=== PATIENT | male | born 1940 | race Caucasian/White ===

== ENCOUNTER 2018-05-02 14:38 | Inpatient (IN) | payer MEDICARE ==
[2018-05-02] MEDS ORDERED: SODIUM CHLORIDE 0.9% 1,000 ML IV STA (14:43)
--- NOTE | 2018-05-02 14:45 | ED ---
Weakness HPI - General Chief complaint: Dizziness Stated complaint: Light headed, hyperglycemia Time Seen by Provider: 05/02/18 14:43 Source: patient, RN notes reviewed, old records reviewed Mode of arrival: wheelchair Limitations: no limitations - History of Present Illness Initial comments: This is a 70-year-old male to the ER for evaluation presented today for evaluation shortness breath weakness and chest pain. Patient has significant recent heart history with significant cardiac event stent placed. Patient states and stent placement in the abdomen severely weak shortness of breath and had increasing blood sugar. Patient states he has significant exertional dyspnea, no significant diaphoresis noted. Home activity level is significantly decreased MD Complaint: generalized weakness -: month(s) Location: generalized Severity: moderate Severity scale (1-10): 5 Quality: aching Consistency: constant Improves with: none, rest Worsens with: movement Context: depression Associated Symptoms: denies other symptoms - Related Data Home Medications Medication Instructions Recorded Confirmed Gabapentin [Neurontin] 100 mg PO DAILY 03/09/18 05/02/18 Levothyroxine Sodium [Synthroid] 150 mcg PO DAILY 03/09/18 05/02/18 Albuterol Inhaler [Ventolin Hfa 1 - 2 puff INHALATION RT-Q6H PRN 03/11/18 Inhaler] sitaGLIPtin [Januvia] 50 mg PO DAILY 03/11/18 05/02/18 Previous Rx's Medication Instructions Recorded Aspirin 81 mg PO DAILY #30 chew 03/14/18 Atorvastatin [Lipitor] 80 mg PO HS #30 tab 03/14/18 Digoxin [Lanoxin] 125 mcg PO DAILY #30 tab 03/14/18 Furosemide [Lasix] 20 mg PO BID #60 tab 03/14/18 Losartan [Cozaar] 25 mg PO HS #30 tab 03/14/18 Metoprolol Tartrate [Lopressor] 50 mg PO BID #60 tab 03/14/18 Ticagrelor [Brilinta] 90 mg PO BID #60 tab 03/14/18 Allergies Allergy/AdvReac Type Severity Reaction Status Date / Time cortisone Allergy Swelling Verified 05/02/18 14:51 Review of Systems ROS Statement: Those systems with pertinent positive or pertinent negative responses have been documented in the HPI. ROS Other: All systems not noted in ROS Statement are negative. Past Medical History Past Medical History: Atrial Fibrillation, Coronary Artery Disease (CAD), COPD, Diabetes Mellitus, Deep Vein Thrombosis (DVT), GERD/Reflux, GI Bleed, Hypertension, Thyroid Disorder Additional Past Medical History / Comment(s): upper and lower GI bld in 2015, diverticulosis History of Any Multi-Drug Resistant Organisms: None Reported Past Surgical History: Back Surgery, Cholecystectomy, Heart Catheterization With Stent, Orthopedic Surgery Additional Past Surgical History / Comment(s): rotator cuff repair & WRIST SURGERY Past Anesthesia/Blood Transfusion Reactions: No Reported Reaction Date of Last Stent Placement:: 03/09/18 Past Psychological History: Anxiety Smoking Status: Former smoker - Past Family History Father History Unknown: Yes Additional Family Medical History / Comment(s): FAMILY HISTORY UNKNOWN. General Exam Limitations: no limitations General appearance: alert, in no apparent distress Head exam: Present: atraumatic, normocephalic, normal inspection Eye exam: Present: normal appearance, PERRL, EOMI. Absent: scleral icterus, conjunctival injection, periorbital swelling ENT exam: Present: normal exam, mucous membranes moist Neck exam: Present: normal inspection. Absent: tenderness, meningismus, lymphadenopathy Respiratory exam: Present: normal lung sounds bilaterally. Absent: respiratory distress, wheezes, rales, rhonchi, stridor Cardiovascular Exam: Present: regular rate, normal rhythm, normal heart sounds. Absent: systolic murmur, diastolic murmur, rubs, gallop, clicks GI/Abdominal exam: Present: soft, normal bowel sounds. Absent: distended, tenderness, guarding, rebound, rigid Extremities exam: Present: normal inspection, full ROM, normal capillary refill. Absent: tenderness, pedal edema, joint swelling, calf tenderness Back exam: Present: normal inspection Neurological exam: Present: alert, oriented X3, CN II-XII intact Psychiatric exam: Present: normal affect, normal mood Skin exam: Present: warm, dry, intact, normal color. Absent: rash Course Vital Signs 05/02/18 05/02/18 05/02/18 14:40 15:30 16:00 Temperature 98.6 F Pulse Rate 85 84 81 Respiratory 18 15 18 Rate Blood Pressure 112/66 112/62 100/70 O2 Sat by Pulse 97 95 96 Oximetry - Reevaluation(s) Reevaluation #1: 05/02/18 18:09 Medical record is reviewed prior troponin is 128 EKG Findings - EKG Comments: EKG Findings:: EKG shows A. fib rate of 92, QRS 160, QTc 47 Medical Decision Making - Medical Decision Making 78 male to the ED co weakness and exertional dyspnea - Lab Data Result diagrams: 05/02/18 15:22 05/02/18 15:22 Lab Results 05/02/18 05/02/18 05/02/18 Range/Units 15:22 15:22 15:22 WBC 7.4 (3.8-10.6) k/uL RBC 4.54 (4.30-5.90) m/uL Hgb 14.5 (13.0-17.5) gm/dL Hct 43.2 (39.0-53.0) % MCV 95.1 (80.0-100.0) fL MCH 32.0 (25.0-35.0) pg MCHC 33.6 (31.0-37.0) g/dL RDW 14.2 (11.5-15.5) % Plt Count 172 (150-450) k/uL Neutrophils % 61 % Lymphocytes % 25 % Monocytes % 9 % Eosinophils % 3 % Basophils % 1 % Neutrophils # 4.5 (1.3-7.7) k/uL Lymphocytes # 1.8 (1.0-4.8) k/uL Monocytes # 0.6 (0-1.0) k/uL Eosinophils # 0.2 (0-0.7) k/uL Basophils # 0.1 (0-0.2) k/uL PT (9.0-12.0) sec INR (<1.2) APTT (22.0-30.0) sec Sodium 134 L (137-145) mmol/L Potassium 3.9 (3.5-5.1) mmol/L Chloride 96 L (98-107) mmol/L Carbon Dioxide 25 (22-30) mmol/L Anion Gap 13 mmol/L BUN 17 (9-20) mg/dL Creatinine 0.91 (0.66-1.25) mg/dL Est GFR (CKD-EPI)AfAm >90 (>60 ml/min/1.73 sqM) Est GFR (CKD-EPI)NonAf 81 (>60 ml/min/1.73 sqM) Glucose 425 H (74-99) mg/dL Plasma Lactic Acid Jason (0.7-2.0) mmol/L Calcium 9.2 (8.4-10.2) mg/dL Phosphorus 2.7 (2.5-4.5) mg/dL Magnesium 1.4 L (1.6-2.3) mg/dL Total Bilirubin 1.3 (0.2-1.3) mg/dL AST 31 (17-59) U/L ALT 31 (21-72) U/L Alkaline Phosphatase 61 (38-126) U/L Total Creatine Kinase 88 (55-170) U/L CK-MB (CK-2) 2.3 (0.0-2.4) ng/mL CK-MB (CK-2) Rel Index 2.6 Troponin I 0.040 H* (0.000-0.034) ng/mL Total Protein 6.4 (6.3-8.2) g/dL Albumin 3.5 (3.5-5.0) g/dL Urine Color Urine Appearance (Clear) Urine pH (5.0-8.0) Ur Specific [place] (1.001-1.035) Urine Protein (Negative) Urine Glucose (UA) (Negative) Urine Ketones (Negative) Urine Blood (Negative) Urine Nitrite (Negative) Urine Bilirubin (Negative) Urine Urobilinogen (<2.0) mg/dL Ur Leukocyte Esterase (Negative) Acetone, Qual Negative (Negative) 05/02/18 05/02/18 05/02/18 Range/Units 15:22 15:22 15:22 WBC (3.8-10.6) k/uL RBC (4.30-5.90) m/uL Hgb (13.0-17.5) gm/dL Hct (39.0-53.0) % MCV (80.0-100.0) fL MCH (25.0-35.0) pg MCHC (31.0-37.0) g/dL RDW (11.5-15.5) % Plt Count (150-450) k/uL Neutrophils % % Lymphocytes % % Monocytes % % Eosinophils % % Basophils % % Neutrophils # (1.3-7.7) k/uL Lymphocytes # (1.0-4.8) k/uL Monocytes # (0-1.0) k/uL Eosinophils # (0-0.7) k/uL Basophils # (0-0.2) k/uL PT 11.6 (9.0-12.0) sec INR 1.2 H (<1.2) APTT 22.1 (22.0-30.0) sec Sodium (137-145) mmol/L Potassium (3.5-5.1) mmol/L Chloride (98-107) mmol/L Carbon Dioxide (22-30) mmol/L Anion Gap mmol/L BUN (9-20) mg/dL Creatinine (0.66-1.25) mg/dL Est GFR (CKD-EPI)AfAm (>60 ml/min/1.73 sqM) Est GFR (CKD-EPI)NonAf (>60 ml/min/1.73 sqM) Glucose (74-99) mg/dL Plasma Lactic Acid Jason 3.5 H* (0.7-2.0) mmol/L Calcium (8.4-10.2) mg/dL Phosphorus (2.5-4.5) mg/dL Magnesium (1.6-2.3) mg/dL Total Bilirubin (0.2-1.3) mg/dL AST (17-59) U/L ALT (21-72) U/L Alkaline Phosphatase (38-126) U/L Total Creatine Kinase (55-170) U/L CK-MB (CK-2) (0.0-2.4) ng/mL CK-MB (CK-2) Rel Index Troponin I (0.000-0.034) ng/mL Total Protein (6.3-8.2) g/dL Albumin (3.5-5.0) g/dL Urine Color Yellow Urine Appearance Clear (Clear) Urine pH 6.0 (5.0-8.0) Ur Specific [place] 1.009 (1.001-1.035) Urine Protein Negative (Negative) Urine Glucose (UA) 4+ H (Negative) Urine Ketones Negative (Negative) Urine Blood Negative (Negative) Urine Nitrite Negative (Negative) Urine Bilirubin Negative (Negative) Urine Urobilinogen <2.0 (<2.0) mg/dL Ur Leukocyte Esterase Negative (Negative) Acetone, Qual (Negative) - Radiology Data Radiology results: report reviewed (CXR is negative for acute disease), image reviewed Critical Care Time Critical Care Time: Yes Total Critical Care Time: 31 Disposition Clinical Impression: CHF (congestive heart failure), Acute non-ST elevation myocardial infarction ( NSTEMI) Disposition: ADMITTED IP TO THIS HOSP Condition: Fair Is patient prescribed a controlled substance at d/c from ED?: No Referrals: Devonte Schaefer MD [Primary Care Provider] - 1-2 days
[2018-05-02 16:46] LABS: Basophils # (A) 0.1 k/uL (0-0.2); Basophils % (A) 1 %; Eosinophils # (A) 0.2 k/uL (0-0.7); Eosinophils % (A) 3 %; HCT 43.2 % (39.0-53.0); HGB 14.5 gm/dL (13.0-17.5); Lymphocytes # (A) 1.8 k/uL (1.0-4.8); Lymphocytes % (A) 25 %; MCHC 33.6 g/dL (31.0-37.0); MCV 95.1 fL (80.0-100.0); Mean Platelet Volume 7.2; Monocytes # (A) 0.6 k/uL (0-1.0); Monocytes % (A) 9 %; Neutrophils # (A) 4.5 k/uL (1.3-7.7); Neutrophils % (A) 61 %; Platelet Count 172 k/uL (150-450); RBC 4.54 m/uL (4.30-5.90); RDW 14.2 % (11.5-15.5); WBC 7.4 k/uL (3.8-10.6)
[2018-05-02 16:57] LABS: ALT 31 U/L (21-72); AST 31 U/L (17-59); Albumin 3.5 g/dL (3.5-5.0); Alkaline Phosphatase 61 U/L (38-126); Anion Gap 13 mmol/L; Blood Urea Nitrogen 17 mg/dL (9-20); Calcium 9.2 mg/dL (8.4-10.2); Carbon Dioxide 25 mmol/L (22-30); Chloride 96 mmol/L (98-107); Glucose 425 mg/dL (74-99); Magnesium 1.4 mg/dL (1.6-2.3); Phosphorus 2.7 mg/dL (2.5-4.5); Potassium 3.9 mmol/L (3.5-5.1); Sodium 134 mmol/L (137-145); Total Bilirubin 1.3 mg/dL (0.2-1.3); Total Protein 6.4 g/dL (6.3-8.2)
[2018-05-02 16:58] LABS: Appearance,Urine Clear (Clear); Bilirubin,Urine Negative (Negative); Blood,Urine Negative (Negative); Color,Urine Yellow; Glucose,Urine (UA) 4+ (Negative); Ketones,Urine Negative (Negative); Leukocyte Esterase,Urine Negative (Negative); Nitrite,Urine Negative (Negative); Protein,Urine Negative (Negative); Specific Gravity,Urine 1.009 (1.001-1.035); Urobilinogen,Urine <2.0 mg/dL (<2.0)
[2018-05-02 17:02] LABS: INR 1.2 (<1.2); Partial Thromboplastin Time 22.1 sec (22.0-30.0); Prothrombin Time 11.6 sec (9.0-12.0)
[2018-05-02 17:20] LABS: Creatine Kinase MB 2.3 ng/mL (0.0-2.4)
[2018-05-02 17:25] LABS: Troponin I 0.04 ng/mL (0.000-0.034)
[2018-05-02] MEDS ORDERED: NITROGLYCERIN SL TABS 0.4 MG TAB SUBLINGUAL PRN (18:05)
[2018-05-02 20:49] LABS: Glucose,Whole Blood 357 mg/dL (75-99)
[2018-05-02] MEDS ORDERED: METOPROLOL TARTRATE 25 MG TAB PO SCH (21:00)
[2018-05-02 21:36] LABS: Creatine Kinase MB 2.1 ng/mL (0.0-2.4)
[2018-05-02 21:52] LABS: Troponin I 0.042 ng/mL (0.000-0.034)
[2018-05-02] MEDS ORDERED: ALBUTEROL NEBULIZED 2.5 MG/3 ML INHALATION PRN (22:03)
[2018-05-02] MEDS ORDERED: SODIUM CHLORIDE 0.9% 500 ML 500 ML IV ONE (22:12)
[2018-05-02] MEDS ORDERED: INSULIN ASPART 100 UNIT/ML 1 ML 10 ML VIAL SQ ONE (22:13)
[2018-05-02] MEDS ORDERED: TICAGRELOR 90 MG TAB PO SCH (22:15)
[2018-05-02] MEDS: ATORVASTATIN 80 MG TAB PO SCH (22:29)
[2018-05-02] MEDS: LOSARTAN 25 MG TAB PO SCH (22:29)
[2018-05-02] MEDS: METOPROLOL TARTRATE 50 MG TAB PO SCH (22:29)
[2018-05-02] MEDS: FUROSEMIDE 20 MG TAB PO SCH (22:29)
[2018-05-02] MEDS: DIGOXIN 125 MCG TAB PO SCH (22:33)
[2018-05-02] MEDS: SODIUM CHLORIDE 0.9% 1,000 ML IV SCH (23:06)
[2018-05-02] MEDS: AZITHROMYCIN 500 MG in SODIUM CHLORIDE 0.9% 250 ML IVPB SCH (23:41)
--- NOTE | 2018-05-03 00:25 | XR ---
EXAM: XR Chest, 1 View CLINICAL HISTORY: ITS.REASON XR Reason: cough, sob TECHNIQUE: Frontal view of the chest. COMPARISON: No relevant prior studies available. FINDINGS: Lungs: Unremarkable. No consolidation. Pleural space: Unremarkable. No pneumothorax. Heart: Unremarkable. No cardiomegaly. Mediastinum: Unremarkable. Bones/joints: No definite fracture. IMPRESSION: No acute findings.
[2018-05-03 03:01] LABS: Basophils # (A) 0.1 k/uL (0-0.2); Basophils % (A) 1 %; Eosinophils # (A) 0.3 k/uL (0-0.7); Eosinophils % (A) 4 %; HCT 39.5 % (39.0-53.0); HGB 13.6 gm/dL (13.0-17.5); Lymphocytes # (A) 2.1 k/uL (1.0-4.8); Lymphocytes % (A) 27 %; MCH 32.4 pg (25.0-35.0); MCHC 34.5 g/dL (31.0-37.0); Mean Platelet Volume 7.2; Monocytes # (A) 0.7 k/uL (0-1.0); Monocytes % (A) 9 %; Neutrophils # (A) 4.7 k/uL (1.3-7.7); Neutrophils % (A) 58 %; Platelet Count 165 k/uL (150-450); RDW 14.2 % (11.5-15.5); WBC 8.1 k/uL (3.8-10.6)
[2018-05-03 03:05] LABS: Anion Gap 7 mmol/L; Blood Urea Nitrogen 15 mg/dL (9-20); Calcium 8.7 mg/dL (8.4-10.2); Carbon Dioxide 30 mmol/L (22-30); Chloride 102 mmol/L (98-107); Cholesterol 100 mg/dL (<200); Glucose 190 mg/dL (74-99); HDL Cholesterol 32 mg/dL (40-60); LDL Cholesterol,Calculated 41 mg/dL (0-99); Potassium 3.4 mmol/L (3.5-5.1); Sodium 139 mmol/L (137-145); Triglycerides 137 mg/dL (<150)
[2018-05-03 03:31] LABS: Creatine Kinase MB 1.9 ng/mL (0.0-2.4)
[2018-05-03 03:39] LABS: Troponin I 0.05 ng/mL (0.000-0.034)
[2018-05-03 06:05] LABS: Glucose,Whole Blood 199 mg/dL (75-99)
[2018-05-03] MEDS: LEVOTHYROXINE 75 MCG TAB PO SCH (06:25)
[2018-05-03] MEDS: INSULIN ASPART 100 UNIT/ML 1 ML 10 ML VIAL SQ SCH ×4 (06:25→21:47)
--- NOTE | 2018-05-03 08:25 | P.CRDCN ---
History of Present Illness Consult date: 05/03/18 Requesting physician: Devonte Schaefer Consult reason: shortness of breath Chief complaint: Exertional shortness of breath and weakness History of present illness: This is a 78-year-old gentleman who follows regularly with Dr. Francisco in the office. He has a known history of hypertension, diabetes, hyperlipidemia , chronic persistent atrial fibrillation, coronary artery disease, most recently the patient was in the hospital in February at which time he incurred a non-Q-wave myocardial infarction, he underwent angioplasty and stenting of the ostial and proximal left main intra-aortic balloon pump was placed at that time. He also had an echocardiogram with Doppler study performed on that visit which revealed an ejection fraction of 40-45%. Mild to moderate MR, mild-to- moderate TR, moderate to severe pulmonary hypertension. He presents to the hospital on this occasion mainly with symptoms of exertional shortness of breath and weakness. Apparently the patient was having a general physical, he noted in the morning at home his blood sugars to be in the range of 200. While at his physician's appointment his blood sugars were noted to be in the 400 range. Patient states that he was speaking to his doctor explaining that he's been very short of breath with minimal activities, intermittently he gets sharp chest pains, but he's been extremely weak unable to walk even short distances. Patient also notes at times that his heart is fluttering and racing fast. He also has swelling in his bilateral lower extremities, left leg greater than the right, he does state he said a history of a blood clot in that leg previously and it is always somewhat larger than the other. There is significant tenderness in the left lower extremity today. EKG on arrival here showed atrial fibrillation with a heart rate in the 90s, no acute changes noted. Chest x-ray did not reveal any acute findings. Blood pressure 120/70 with a heart rate in the 80s, 92% on room air. Temperature 97.8. White blood cell count 8.1, hemoglobin 13.6, platelet count 165. Sodium 139, potassium 3.4, BUN 15, creatinine 0.8. Blood glucose on arrival 425, 190 this morning. Plasma lactic acid 5.2 on admission 2.2 this morning. Magnesium 1.4. Troponins 0.04, 0.042, 0.050. I did review the office note, the patient had seen Dr. Pat on April 26 at which time he was instructed to stop his Brilinta, he was initiated on Plavix and Eliquis. The patient however was instructed to finish his Brilinta before making this change, and he had not yet started the Eliquis. At the time of my examination this morning, patient does complain of feeling extremely weak, denies any shortness of breath at present and no chest discomfort. Past Medical History Past Medical History: Atrial Fibrillation, Coronary Artery Disease (CAD), Chest Pain / Angina, COPD, Diabetes Mellitus, Deep Vein Thrombosis (DVT), GERD/Reflux , GI Bleed, Hypertension, Thyroid Disorder Additional Past Medical History / Comment(s): upper and lower GI bld in 2015, diverticulosis, upper dental bridge History of Any Multi-Drug Resistant Organisms: None Reported Past Surgical History: Back Surgery, Cholecystectomy, Heart Catheterization With Stent, Orthopedic Surgery Additional Past Surgical History / Comment(s): rotator cuff repair & WRIST SURGERY Past Anesthesia/Blood Transfusion Reactions: No Reported Reaction Date of Last Stent Placement:: 03/09/18 Smoking Status: Former smoker - Past Family History Father History Unknown: Yes Additional Family Medical History / Comment(s): FAMILY HISTORY UNKNOWN.pt was placed in foster care at [address] living in 11 different families. Medications and Allergies Home Medications Medication Instructions Recorded Confirmed Type Gabapentin [Neurontin] 100 mg PO DAILY 03/09/18 05/02/18 History Levothyroxine Sodium [Synthroid] 150 mcg PO DAILY 03/09/18 05/02/18 History Albuterol Inhaler [Ventolin Hfa 1 - 2 puff INHALATION RT-Q6H PRN 03/11/18 History Inhaler] sitaGLIPtin [Januvia] 100 mg PO DAILY 03/11/18 05/02/18 History Aspirin 81 mg PO DAILY #30 chew 03/14/18 05/02/18 Rx Atorvastatin [Lipitor] 80 mg PO HS #30 tab 03/14/18 05/02/18 Rx Digoxin [Lanoxin] 125 mcg PO DAILY #30 tab 03/14/18 05/02/18 Rx Furosemide [Lasix] 20 mg PO BID #60 tab 03/14/18 05/02/18 Rx Losartan [Cozaar] 25 mg PO HS #30 tab 03/14/18 05/02/18 Rx Metoprolol Tartrate [Lopressor] 50 mg PO BID #60 tab 03/14/18 05/02/18 Rx Ticagrelor [Brilinta] 90 mg PO BID #60 tab 03/14/18 05/02/18 Rx Allergies Allergy/AdvReac Type Severity Reaction Status Date / Time cortisone Allergy Swelling Verified 05/02/18 14:51 Physical Exam Vitals: Vital Signs Temp Pulse Pulse Resp BP BP Pulse Ox 05/03/18 04:06 97.8 F 89 15 120/71 92 L 05/02/18 23:34 97.5 F L 88 16 126/81 96 05/02/18 20:52 97.9 F 94 16 133/77 97 05/02/18 19:00 94 14 110/81 91 L 05/02/18 16:00 81 18 100/70 96 05/02/18 15:30 84 15 112/62 95 05/02/18 14:40 98.6 F 85 18 112/66 97 Intake and Output 05/02/18 05/03/18 05/03/18 22:59 06:59 14:59 Intake Total 550 240 Output Total 525 Balance 25 240 Intake: Intake, IV Titration 550 Amount Sodium Chloride 0.9% 500 500 ml 500 ml @ 999 mls/hr IV .Q31M ONE Rx#:[id number] cefTRIAXone 1,000 mg In 50 Sodium Chloride 0.9% 50 ml @ 100 mls/hr IVPB Q24H [facility] Rx#:[id number] Oral 240 Output: Urine 525 Other: # Voids 2 Weight 89.9 kg PHYSICAL EXAMINATION: GENERAL: 78-year-old gentleman in no acute distress at the time of my examination HEENT: Head is atraumatic, normocephalic. Pupils equal, round. Sclera anicteric. Conjunctiva are clear. Mucous membranes of the mouth are moist. Neck is supple. There is no elevated jugular venous pressure. No carotid bruit is heard. HEART EXAMINATION: Heart S1 and S2 irregularly irregular a systolic murmur is heard. CHEST EXAMINATION: Lungs are clear to auscultation and precussion. No chest wall tenderness is noted on palpation or with deep breathing. ABDOMEN: Soft, nontender. Bowel sounds are heard. No organomegaly noted. EXTREMITIES: 2+ peripheral pulses with 2+ evidence of peripheral edema in the left lower extremity, 1+ in the right. . NEUROLOGIC patient is awake, alert and oriented 3 . Results 05/03/18 02:43 05/03/18 02:43 Cardiac Enzymes 05/02/18 05/02/18 05/02/18 Range/Units 15:22 15:22 20:32 AST 31 (17-59) U/L CK-MB (CK-2) 2.3 2.1 (0.0-2.4) ng/mL Troponin I 0.040 H* 0.042 H* (0.000-0.034) ng/mL 05/03/18 Range/Units 02:43 AST (17-59) U/L CK-MB (CK-2) 1.9 (0.0-2.4) ng/mL Troponin I 0.050 H* (0.000-0.034) ng/mL Coagulation 05/02/18 Range/Units 15:22 PT 11.6 (9.0-12.0) sec APTT 22.1 (22.0-30.0) sec Lipids 05/03/18 Range/Units 02:43 Triglycerides 137 (<150) mg/dL Cholesterol 100 (<200) mg/dL HDL Cholesterol 32 L (40-60) mg/dL CBC 05/02/18 05/03/18 Range/Units 15:22 02:43 WBC 7.4 8.1 (3.8-10.6) k/uL RBC 4.54 4.20 L (4.30-5.90) m/uL Hgb 14.5 13.6 (13.0-17.5) gm/dL Hct 43.2 39.5 (39.0-53.0) % Plt Count 172 165 (150-450) k/uL Comprehensive Metabolic Panel 05/02/18 05/03/18 Range/Units 15:22 02:43 Sodium 134 L 139 (137-145) mmol/L Potassium 3.9 3.4 L (3.5-5.1) mmol/L Chloride 96 L 102 (98-107) mmol/L Carbon Dioxide 25 30 (22-30) mmol/L BUN 17 15 (9-20) mg/dL Creatinine 0.91 0.88 (0.66-1.25) mg/dL Glucose 425 H 190 H (74-99) mg/dL Calcium 9.2 8.7 (8.4-10.2) mg/dL AST 31 (17-59) U/L ALT 31 (21-72) U/L Alkaline Phosphatase 61 (38-126) U/L Total Protein 6.4 (6.3-8.2) g/dL Albumin 3.5 (3.5-5.0) g/dL Current Medications Generic Name Dose Route Start Last Admin Trade Name Freq PRN Reason Stop Dose Admin Albuterol Sulfate 2.5 mg 05/02/18 22:03 Ventolin Nebulized INHALATION RT-Q6H PRN Shortness Of Breath Aspirin 81 mg 05/03/18 09:00 Aspirin PO DAILY [facility] Atorvastatin Calcium 80 mg 05/02/18 22:15 05/02/18 22:29 Lipitor PO 80 mg HS [facility] Administration Digoxin 125 mcg 05/02/18 22:03 05/02/18 22:33 Lanoxin PO Not Given DAILY [facility] Enoxaparin Sodium 40 mg 05/03/18 09:00 Lovenox SQ DAILY [facility] Furosemide 20 mg 05/02/18 22:03 05/02/18 22:29 Lasix PO 20 mg BID [facility] Administration Gabapentin 100 mg 05/03/18 09:00 Neurontin PO DAILY [facility] Sodium Chloride 1,000 mls @ 100 mls/hr 05/02/18 18:15 05/02/18 23:06 Saline 0.9% IV 100 mls/hr .Q10H [facility] Administration Ceftriaxone Sodium 1,000 mg/ 50 mls @ 100 mls/hr 05/02/18 23:00 05/02/18 23: 06 Sodium Chloride IVPB 100 mls/hr Q24H [facility] Administration Azithromycin 500 mg/ Sodium 250 mls @ 250 mls/hr 05/02/18 23:30 05/02/18 23: 41 Chloride IVPB 250 mls/hr Q24H [facility] Administration Insulin Aspart 0 unit 05/03/18 07:30 05/03/18 06:25 Novolog SQ 2 unit AC-TID [facility] Administration Protocol Levothyroxine Sodium 150 mcg 05/03/18 06:30 05/03/18 06:25 Synthroid PO 150 mcg DAILY@0630 [facility] Administration Linagliptin 5 mg 05/03/18 09:00 Tradjenta PO DAILY [facility]AZ Losartan Potassium 25 mg 05/02/18 22:15 05/02/18 22:29 Cozaar PO 25 mg HS [facility] Administration Metoprolol Tartrate 50 mg 05/02/18 22:15 05/02/18 22:29 Lopressor PO 50 mg BID [facility] Administration Nitroglycerin 0.4 mg 05/02/18 18:05 Nitrostat SUBLINGUAL Q5M PRN Chest Pain Ticagrelor 90 mg 05/02/18 22:15 05/02/18 22:29 Brilinta PO 90 mg BID [facility]AZ Administration Intake and Output 05/02/18 05/03/18 05/03/18 22:59 06:59 14:59 Intake Total 550 240 Output Total 525 Balance 25 240 Intake: Intake, IV Titration 550 Amount Sodium Chloride 0.9% 500 500 ml 500 ml @ 999 mls/hr IV .Q31M ONE Rx#:[id number] cefTRIAXone 1,000 mg In 50 Sodium Chloride 0.9% 50 ml @ 100 mls/hr IVPB Q24H [facility] Rx#:[id number] Oral 240 Output: Urine 525 Other: # Voids 2 Weight 89.9 kg 05/03/18 02:43 05/03/18 02:43 EKG Interpretations (text) EKG shows atrial fibrillation with a moderately rapid ventricular Assessment and Plan Plan: Assessment and plan #1 symptoms of exertional shortness of breath with progressive weakness. Troponins 0.040, 0.042, 0.050. #2 symptoms of palpitations and heart fluttering, EKG on admission showed atrial fibrillation with moderately rapid ventricular response. #3 known history of coronary artery disease with recent myocardial infarction in February of this year at which time patient underwent angioplasty and stenting of ostial and proximal left main. Patient had been on Brilinta, this was recently changed in the office to Plavix and the aspirin had been discontinued. Patient however had not yet started the Plavix and was still taking Brilinta #4 diabetes, uncontrolled, blood sugars greater than 400 on admission #5 hypertension #6 hyperlipidemia #7 history of prior DVT #8 chronic persistent atrial fibrillation, patient just recently started back on Eliquis 2-1/2 mg one tablet by mouth twice a day on April 26. Patient had not yet started taking Eliquis. #9 elevated plasma lactic acid level #10 hypokalemia Plan We will discontinue the Brilinta aspirin and Lovenox and put the patient on Eliquis and Plavix. Echocardiogram with Doppler study is being performed. Venous duplex study of the left lower extremity has also been requested. We'll request a d-dimer rule out possibility of pulmonary embolism. Replace potassium. Further recommendations to follow DNP note has been reviewed, I agree with a documented findings and plan of care. Patient was seen and examined.
[2018-05-03] MEDS: GABAPENTIN 100 MG CAP PO SCH (08:48)
[2018-05-03] MEDS: DIGOXIN 125 MCG TAB PO SCH (08:49)
[2018-05-03] MEDS: CLOPIDOGREL 75 MG TAB PO SCH (08:49)
[2018-05-03] MEDS: METOPROLOL TARTRATE 50 MG TAB PO SCH ×2 (08:49→20:27)
[2018-05-03] MEDS: FUROSEMIDE 20 MG TAB PO SCH ×2 (08:49→20:27)
[2018-05-03] MEDS: LINAGLIPTIN 5 MG TABLET PO SCH (08:51)
[2018-05-03] MEDS ORDERED: ENOXAPARIN 40 MG/0.4 ML SYRINGE SQ SCH (09:00)
[2018-05-03] MEDS ORDERED: APIXABAN 2.5 MG TABLET PO SCH (09:00)
[2018-05-03] MEDS ORDERED: ASPIRIN 81 MG PO SCH ×2 (09:00)
--- NOTE | 2018-05-03 09:21 | US ---
EXAMINATION TYPE: US venous doppler duplex LE LT DATE OF EXAM: 05/03/2018 8:44 AM COMPARISON: NONE CLINICAL HISTORY: edema. History of DVT left leg about 4 years ago per patient, currently taking bloo d thinners SIDE PERFORMED: Left TECHNIQUE: The lower extremity deep venous system is examined utilizing real time linear array sonog argelia with graded compression, doppler sonography and color-flow sonography. VESSELS IMAGED: External Iliac Vein (EIV) Common Femoral Vein Deep Femoral Vein Greater Saphenous Vein * Femoral Vein Popliteal Vein Small Saphenous Vein * Proximal Calf Veins (* superficial vessels) Left Leg: Positive for DVT from the mid femoral vein to the proximal calf veins IMPRESSION: DVT as noted above.
[2018-05-03 11:26] LABS: Glucose,Whole Blood 304 mg/dL (75-99)
--- NOTE | 2018-05-03 11:43 | CT ---
EXAMINATION TYPE: CT angio chest DATE OF EXAM: 05/03/2018 COMPARISON: None HISTORY: History of left leg DVT CT DLP: 293 mGycm CONTRAST: CT chest with contrast and 3D reconstruction with MIP imaging is performed with IV Contrast, patient injected with 100, wasted 16 mL of Isovue 370. Contrast-enhanced CT of the chest was performed through the course of the pulmonary arteries with john g and mediastinal window settings submitted. 3D reconstruction with MIP imaging was also performed. PULMONARY ARTERIES: There is filling defect within tertiary right lower lobe pulmonary arterial branc hes compatible with pulmonary embolism mild in degree. No additional filling defects seen. No evidenc e for saddle component. LUNGS: The lungs are clear and free of infiltrate. No evidence for atelectasis. No pulmonary nodule or mass is detected. No pleural effusion. MEDIASTINUM: Thoracic aorta is of normal caliber,however, evaluation is limited given timing of the contrast bolus. If there is concern for thoracic aortic pathology consider NARCISA. Correlate clinicall y . The heart is not enlarged. No evidence for mediastinal mass. No mediastinal lymph nodes greater than 1cm. HILAR STRUCTURES: No evidence for mass. No hilar lymph nodes greater than 1 cm. UPPER ABDOMEN: No significant abnormality is seen. IMPRESSION: 1. Findings compatible with right lower lobe pulmonary embolism mild in degree. See above. A [place] level critical message alert has been initiated for Devonte Schaefer MD via the [facility] Critical Results System on 05/03/2018 11:40 AM. This message alert has been sent to Devonte Schaefer MD via the preferences provided by the clinician for the receipt of Radiology Critical Findings. Messag e ID [id number].
[2018-05-03] MEDS: SODIUM CHLORIDE 0.9% 1,000 ML IV SCH ×3 (12:26→22:31)
--- NOTE | 2018-05-03 12:51 | ECHOF ---
Referral Reason:sob MEASUREMENTS -------- HEIGHT: 170.2 cm WEIGHT: 89.8 kg BP: 120/71 RVIDd: 2.5 cm (< 3.3) IVSd: 1.3 cm (0.6 - 1.1) LVIDd: 4.6 cm (3.9 - 5.3) LVPWd: 1.0 cm (0.6 - 1.1) IVSs: 1.8 cm LVIDs: 3.3 cm LVPWs: 1.4 cm LAESV Index (A-L): 32.31 ml/m Ao Diam: 2.7 cm (2.0 - 3.7) AV Cusp: 1.9 cm (1.5 - 2.6) LA Diam: 3.6 cm (2.7 - 3.8) MV EXCURSION: 13.536 mm (> 18.000) MV EF SLOPE: 103 mm/s (70 - 150) EPSS: 0.8 cm AR PHT: 314 ms RAP: 5.00 mmHg RVSP: 27.57 mmHg FINDINGS -------- Atrial fibrillation. This was a technically difficult study with suboptimal views. The left ventricular size is normal. There is mild concentric left ventricular hypertrophy. Overa ll left ventricular systolic function is mildly impaired with, an EF between 45 - 50 %. Basal poste rior LV wall motion is hypokinetic. Basal inferior LV wall motion is hypokinetic. Mid inferior LV wall motion is hypokinetic. The right ventricle is normal in size. LA is midly dilated 29-33ml/m2. The right atrial size is normal. Lumason used Aortic valve is trileaflet and is mildly thickened. Trace amount of aortic regurgitation. The mitral valve leaflets are mildly thickened. Mild mitral regurgitation is present. Mild tricuspid regurgitation present. There is no evidence of pulmonary hypertension. The right v entricular systolic pressure, as measured by Doppler, is 27.57mmHg. There is no pulmonic regurgitation present. The aortic root size is normal. There is no pericardial effusion. CONCLUSIONS -------- 1. Atrial fibrillation. 2. This was a technically difficult study with suboptimal views. 3. The left ventricular size is normal. 4. There is mild concentric left ventricular hypertrophy. 5. Overall left ventricular systolic function is mildly impaired with, an EF between 45 - 50 %. 6. Basal posterior LV wall motion is hypokinetic. 7. Basal inferior LV wall motion is hypokinetic. 8. Mid inferior LV wall motion is hypokinetic. 9. LA is midly dilated 29-33ml/m2. 10. Lumason used 11. Aortic valve is trileaflet and is mildly thickened. 12. Trace amount of aortic regurgitation. 13. The mitral valve leaflets are mildly thickened. 14. Mild mitral regurgitation is present. 15. Mild tricuspid regurgitation present. 16. There is no evidence of pulmonary hypertension. 17. There is no pulmonic regurgitation present. 18. The aortic root size is normal. 19. There is no pericardial effusion. BLOCK CLEANER: Irlanda Melissa RDCS
[2018-05-03] MEDS ORDERED: HEPARIN SODIUM,PORCINE 10,000 UNIT/ML 1 ML VIAL IV ONE (13:39)
[2018-05-03] MEDS ORDERED: HEPARIN SODIUM,PORCINE 5,000 UNIT/ML 1 ML VIAL IV PRN (13:39)
[2018-05-03] MEDS: HEPARIN SOD,PORK IN 0.45% NACL 25,000 UNIT in 0.45% NACL 1 500ML.BAG IV SCH (14:44)
[2018-05-03 15:06] LABS: Basophils % (A) 1 %; Eosinophils # (A) 0.3 k/uL (0-0.7); Eosinophils % (A) 5 %; HCT 38.6 % (39.0-53.0); HGB 13.3 gm/dL (13.0-17.5); INR 1.2 (<1.2); Lymphocytes % (A) 29 %; MCH 33.2 pg (25.0-35.0); MCHC 34.5 g/dL (31.0-37.0); MCV 96.1 fL (80.0-100.0); Mean Platelet Volume 7.2; Monocytes # (A) 0.5 k/uL (0-1.0); Monocytes % (A) 7 %; Neutrophils # (A) 3.8 k/uL (1.3-7.7); Neutrophils % (A) 57 %; Platelet Count 152 k/uL (150-450); Prothrombin Time 11.5 sec (9.0-12.0); RBC 4.01 m/uL (4.30-5.90); RDW 14.2 % (11.5-15.5); WBC 6.8 k/uL (3.8-10.6)
[2018-05-03 16:27] LABS: Hemoglobin A1C 9.6 % (4.0-6.0)
[2018-05-03 16:41] LABS: Glucose,Whole Blood >600 mg/dL (75-99)
[2018-05-03 16:41] LABS: Glucose,Whole Blood 285 mg/dL (75-99)
[2018-05-03] MEDS ORDERED: metFORMIN 500 MG TAB PO SCH (17:30)
--- NOTE | 2018-05-03 20:04 | P.HPIM ---
History of Present Illness H&P Date: 05/03/18 Chief Complaint: elevated blood sugars 78-year-old male with a past medical history significant for atrial fibrillation, COPD, diabetes mellitus, hypertension, and CAD who recently had a myocardial infarction with stent placement to the left main in February 2018, who originally presented to his primary care physicians office for a routine follow up visit. The patients blood sugars had been running in the 300-400s and complained of generalized fatigue. He was instructed to come to the hospital. He was evaluated in the emergency room. The patient also complained of increased swelling of his left lower extremity and tenderness. He denied shortness of breath. Although, he does report a non productive cough. Denies chest pain. Denies nausea or vomiting. The patient reports he has been compliant with his diabetic diet and has been taking his medications as prescribed. His blood sugars are normally well controlled. He was prescribed Aspirin and brilinta when he was discharged from the hospital after his OR. He saw Dr. Pat in the office recently and was told he could stop the brilinta and was switched to Plavix. Chest x-ray was completed and was negative for an acute process. Echocardiogram revealed ejection fraction between 45 and 50%, hypokinesis of LV wall, mild mitral regurgitation, and mild tricuspid regurgitation. Doppler of left lower extremity is positive for DVT from the mid femoral vein to the proximal calf veins CT angiogram revealed right lower lobe pulmonary emboli Laboratory data upon admission reveals white count 7.4. Hemoglobin 14.5. Platelet count 172. Sodium 134. Potassium 3.9. BUN 17. Creatinine 0.91. Glucose 425. Lactic acid 3.5. Magnesium 1.4. troponin 0.040, 0.042, 0.050 The patient was admitted to the hospital under the care of Dr. Schaefer. Consultations were placed to cardiology. REVIEW OF SYSTEMS: Those systems with pertinent positive or pertinent negative responses have been documented in the HPI PHYSICAL EXAM: GENERAL: This is a 78-year-old male in no apparent distress at the time of examination. Pleasant and cooperative. HEENT: Head is atraumatic, normocephalic. Pupils are equal, round, and reactive to light. Sclerae anicteric. Conjunctivae are clear. Mucus membranes of the mouth are moist. Neck is supple. RESPIRATORY: Clear to auscultation. No wheezes, rales, or rhonchi. No use of accessory muscles. Patient maintaining oxygen saturation greater than 92%. No chest wall tenderness is noted on palpation or with deep breathing. CARDIOVASCULAR: Irregular rhythm. S1 and S2 noted. No JVD noted. No S3 or S4 noted. GASTROINTESTINAL: No distention noted. Abdomen soft and round. Normal active bowel sounds auscultated x 4 quadrants. No pain or tenderness noted upon palpation. INTEGUMENTARY: No cyanosis. No jaundice. No rashes noted. No cellulitis noted. EXTREMITIES: 2+ peripheral pulses. 1+ left lower extremity edema. tenderness noted upon palpation of LLE. NEUROLOGIC: Cranial nerves II-XII intact. PSYCHIATRIC: Awake, alert, and oriented X 3. Appropriate affect. Intact judgement and insight. ASSESSMENT: Right lower lobe pulmonary emboli Acute DVT from the left mid femoral vein to the proximal calf veins Hyperglycemia Diabetes Mellitus, Type II, currently uncontrolled Lactic acidosis Coronary artery disease with recent myocardial infarction, s/p stent of ostial and proximal left main Hypertension Hyperlipidema Chronic atrial fibrillation COPD, no evidence of acute exacerbation History of prior DVT GERD Obesity: BMI 31.0 PLAN: Cardiology on consult. Appreciate recommendations and input Brilinta and aspirin discontinued per cardiology. Patient restarted on Eliquis Begin Meformin 500mg BID. If blood sugars remain elevated, will add Levemir at HS Continue Januvia Novolog sliding scale ACHS Consult coding educator Home meds as appropriate Monitor labs GI prophylaxis: Pepcid 20mg PO BID DVT prophylaxis: Eliquis/Heparin drip Monitor vital signs and address as appropriate Discharge planning: Patient to return home when stable Further recommendations pending patient's course Nurse practitioner note has been reviewed by physician. Signing provider agrees with the documented findings, assessment, and plan of care. Past Medical History Past Medical History: Atrial Fibrillation, Coronary Artery Disease (CAD), Chest Pain / Angina, COPD, Diabetes Mellitus, Deep Vein Thrombosis (DVT), GERD/Reflux , GI Bleed, Hypertension, Thyroid Disorder Additional Past Medical History / Comment(s): upper and lower GI bld in 2014, diverticulosis, upper dental bridge History of Any Multi-Drug Resistant Organisms: None Reported Past Surgical History: Back Surgery, Cholecystectomy, Heart Catheterization With Stent, Orthopedic Surgery Additional Past Surgical History / Comment(s): rotator cuff repair & WRIST SURGERY Past Anesthesia/Blood Transfusion Reactions: No Reported Reaction Date of Last Stent Placement:: 03/09/18 Smoking Status: Former smoker - Past Family History Father History Unknown: Yes Additional Family Medical History / Comment(s): FAMILY HISTORY UNKNOWN.pt was placed in foster care at [address] living in 11 different families. Medications and Allergies Home Medications Medication Instructions Recorded Confirmed Type Gabapentin [Neurontin] 100 mg PO DAILY 03/09/18 05/02/18 History Levothyroxine Sodium [Synthroid] 150 mcg PO DAILY 03/09/18 05/02/18 History Albuterol Inhaler [Ventolin Hfa 1 - 2 puff INHALATION RT-Q6H PRN 03/11/18 History Inhaler] sitaGLIPtin [Januvia] 100 mg PO DAILY 03/11/18 05/02/18 History Aspirin 81 mg PO DAILY #30 chew 03/14/18 05/02/18 Rx Atorvastatin [Lipitor] 80 mg PO HS #30 tab 03/14/18 05/02/18 Rx Digoxin [Lanoxin] 125 mcg PO DAILY #30 tab 03/14/18 05/02/18 Rx Furosemide [Lasix] 20 mg PO BID #60 tab 03/14/18 05/02/18 Rx Losartan [Cozaar] 25 mg PO HS #30 tab 03/14/18 05/02/18 Rx Metoprolol Tartrate [Lopressor] 50 mg PO BID #60 tab 03/14/18 05/02/18 Rx Ticagrelor [Brilinta] 90 mg PO BID #60 tab 03/14/18 05/02/18 Rx Allergies Allergy/AdvReac Type Severity Reaction Status Date / Time cortisone Allergy Swelling Verified 05/02/18 14:51 Physical Exam Vitals: Vital Signs Temp Pulse Pulse Resp BP BP Pulse Ox 05/03/18 11:59 96.0 F L 85 18 120/75 97 05/03/18 08:00 97.4 F L 94 18 119/77 96 05/03/18 04:06 97.8 F 89 15 120/71 92 L 05/02/18 23:34 97.5 F L 88 16 126/81 96 05/02/18 20:52 97.9 F 94 16 133/77 97 05/02/18 19:00 94 14 110/81 91 L 05/02/18 16:00 81 18 100/70 96 05/02/18 15:30 84 15 112/62 95 05/02/18 14:40 98.6 F 85 18 112/66 97 Intake and Output 05/02/18 05/03/18 05/03/18 22:59 06:59 14:59 Intake Total 550 462 Output Total 525 700 Balance 25 -238 Intake: Intake, IV Titration 550 Amount Sodium Chloride 0.9% 500 500 ml 500 ml @ 999 mls/hr IV .Q31M ONE Rx#:[id number] cefTRIAXone 1,000 mg In 50 Sodium Chloride 0.9% 50 ml @ 100 mls/hr IVPB Q24H [facility] Rx#:[id number] Oral 462 Output: Urine 525 700 Other: # Voids 2 Weight 89.9 kg Results CBC & Chem 7: 05/03/18 02:43 05/03/18 02:43 Labs: Abnormal Lab Results - Last 24 Hours (Table) 05/02/18 05/02/18 05/02/18 Range/Units 15:22 15:22 15:22 RBC (4.30-5.90) m/uL INR (<1.2) D-Dimer (<0.60) mg/L FEU Sodium 134 L (137-145) mmol/L Potassium (3.5-5.1) mmol/L Chloride 96 L (98-107) mmol/L Glucose 425 H (74-99) mg/dL POC Glucose (mg/dL) (75-99) mg/dL Plasma Lactic Acid Jason 3.5 H* (0.7-2.0) mmol/L Magnesium 1.4 L (1.6-2.3) mg/dL Troponin I 0.040 H* (0.000-0.034) ng/mL HDL Cholesterol (40-60) mg/dL Urine Glucose (UA) (Negative) 05/02/18 05/02/18 05/02/18 Range/Units 15:22 15:22 20:32 RBC (4.30-5.90) m/uL INR 1.2 H (<1.2) D-Dimer (<0.60) mg/L FEU Sodium (137-145) mmol/L Potassium (3.5-5.1) mmol/L Chloride (98-107) mmol/L Glucose (74-99) mg/dL POC Glucose (mg/dL) (75-99) mg/dL Plasma Lactic Acid Jason (0.7-2.0) mmol/L Magnesium (1.6-2.3) mg/dL Troponin I 0.042 H* (0.000-0.034) ng/mL HDL Cholesterol (40-60) mg/dL Urine Glucose (UA) 4+ H (Negative) 05/02/18 05/02/18 05/03/18 Range/Units 20:32 20:47 00:54 RBC (4.30-5.90) m/uL INR (<1.2) D-Dimer (<0.60) mg/L FEU Sodium (137-145) mmol/L Potassium (3.5-5.1) mmol/L Chloride (98-107) mmol/L Glucose (74-99) mg/dL POC Glucose (mg/dL) 357 H (75-99) mg/dL Plasma Lactic Acid Jason 5.2 H* 2.2 H* (0.7-2.0) mmol/L Magnesium (1.6-2.3) mg/dL Troponin I (0.000-0.034) ng/mL HDL Cholesterol (40-60) mg/dL Urine Glucose (UA) (Negative) 05/03/18 05/03/18 05/03/18 Range/Units 02:43 02:43 02:43 RBC 4.20 L (4.30-5.90) m/uL INR (<1.2) D-Dimer (<0.60) mg/L FEU Sodium (137-145) mmol/L Potassium 3.4 L (3.5-5.1) mmol/L Chloride (98-107) mmol/L Glucose 190 H (74-99) mg/dL POC Glucose (mg/dL) (75-99) mg/dL Plasma Lactic Acid Jason (0.7-2.0) mmol/L Magnesium (1.6-2.3) mg/dL Troponin I 0.050 H* (0.000-0.034) ng/mL HDL Cholesterol 32 L (40-60) mg/dL Urine Glucose (UA) (Negative) 05/03/18 05/03/18 05/03/18 Range/Units 06:04 08:20 11:21 RBC (4.30-5.90) m/uL INR (<1.2) D-Dimer 11.33 H (<0.60) mg/L FEU Sodium (137-145) mmol/L Potassium (3.5-5.1) mmol/L Chloride (98-107) mmol/L Glucose (74-99) mg/dL POC Glucose (mg/dL) 199 H 304 H (75-99) mg/dL Plasma Lactic Acid Jason (0.7-2.0) mmol/L Magnesium (1.6-2.3) mg/dL Troponin I (0.000-0.034) ng/mL HDL Cholesterol (40-60) mg/dL Urine Glucose (UA) (Negative) Microbiology - Last 24 Hours (Table) 05/02/18 15:22 Urine Culture - Preliminary Urine,Voided Thrombosis Risk Factor Assmnt - Choose All That Apply Any of the Below Risk Factors Present?: Yes Each Factor Represents 1 point: Obesity (BMI >25), Swollen legs (current) Each Risk Factor Represents 3 Points: Age 75 years or older Other congenital or acquired thrombophilia - If yes, enter type in comment: No Thrombosis Risk Factor Assessment Total Risk Factor Score: 5 Thrombosis Risk Factor Assessment Level: High Risk
[2018-05-03] MEDS: FAMOTIDINE 20 MG TAB PO SCH (20:27)
[2018-05-03] MEDS: ATORVASTATIN 80 MG TAB PO SCH (20:27)
[2018-05-03] MEDS: LOSARTAN 25 MG TAB PO SCH (20:27)
[2018-05-03 20:40] LABS: Glucose,Whole Blood 262 mg/dL (75-99)
[2018-05-03] MEDS: AZITHROMYCIN 500 MG in SODIUM CHLORIDE 0.9% 250 ML IVPB SCH (23:10)
[2018-05-04 06:33] LABS: Glucose,Whole Blood 229 mg/dL (75-99)
[2018-05-04 06:44] LABS: Basophils # (A) 0.1 k/uL (0-0.2); Basophils % (A) 1 %; Eosinophils # (A) 0.6 k/uL (0-0.7); Eosinophils % (A) 6 %; HCT 39.7 % (39.0-53.0); HGB 13.2 gm/dL (13.0-17.5); Lymphocytes # (A) 4.2 k/uL (1.0-4.8); Lymphocytes % (A) 43 %; MCH 31.8 pg (25.0-35.0); MCHC 33.2 g/dL (31.0-37.0); MCV 95.9 fL (80.0-100.0); Mean Platelet Volume 7.3; Monocytes # (A) 0.6 k/uL (0-1.0); Monocytes % (A) 7 %; Neutrophils # (A) 4.1 k/uL (1.3-7.7); Neutrophils % (A) 42 %; Platelet Count 159 k/uL (150-450); RBC 4.14 m/uL (4.30-5.90); RDW 14.3 % (11.5-15.5); WBC 9.7 k/uL (3.8-10.6)
[2018-05-04] MEDS: LEVOTHYROXINE 75 MCG TAB PO SCH (07:01)
[2018-05-04] MEDS: INSULIN ASPART 100 UNIT/ML 1 ML 10 ML VIAL SQ SCH ×5 (07:03→20:19)
[2018-05-04] MEDS: GABAPENTIN 100 MG CAP PO SCH (08:09)
[2018-05-04] MEDS: LINAGLIPTIN 5 MG TABLET PO SCH (08:09)
[2018-05-04] MEDS: METOPROLOL TARTRATE 50 MG TAB PO SCH ×2 (08:09→20:18)
[2018-05-04] MEDS: CLOPIDOGREL 75 MG TAB PO SCH (08:09)
[2018-05-04] MEDS: FAMOTIDINE 20 MG TAB PO SCH ×2 (08:09→20:19)
[2018-05-04] MEDS: DIGOXIN 125 MCG TAB PO SCH (08:09)
[2018-05-04] MEDS: FUROSEMIDE 20 MG TAB PO SCH ×2 (08:10→20:18)
[2018-05-04 10:37] VITALS: BMI 32.0
[2018-05-04 10:54] LABS: Anion Gap 9 mmol/L; Blood Urea Nitrogen 13 mg/dL (9-20); Calcium 8.9 mg/dL (8.4-10.2); Carbon Dioxide 24 mmol/L (22-30); Chloride 106 mmol/L (98-107); Glucose 207 mg/dL (74-99); Potassium 3.6 mmol/L (3.5-5.1); Sodium 139 mmol/L (137-145)
[2018-05-04 11:43] LABS: Glucose,Whole Blood 347 mg/dL (75-99)
[2018-05-04] MEDS: HEPARIN SOD,PORK IN 0.45% NACL 25,000 UNIT in 0.45% NACL 1 500ML.BAG IV SCH ×2 (12:05→20:20)
[2018-05-04] MEDS: SODIUM CHLORIDE 0.9% 1,000 ML IV SCH ×2 (12:14→20:20)
--- NOTE | 2018-05-04 13:50 | P.PN ---
Subjective Progress Note Date: 05/04/18 This is a 78-year-old gentleman who follows regularly with Dr. Francisco in the office. He has a known history of hypertension, diabetes, hyperlipidemia , chronic persistent atrial fibrillation, coronary artery disease, most recently the patient was in the hospital in February at which time he incurred a non-Q-wave myocardial infarction, he underwent angioplasty and stenting of the ostial and proximal left main intra-aortic balloon pump was placed at that time. He also had an echocardiogram with Doppler study performed on that visit which revealed an ejection fraction of 40-45%. Mild to moderate MR, mild-to- moderate TR, moderate to severe pulmonary hypertension. He presents to the hospital on this occasion mainly with symptoms of exertional shortness of breath and weakness. Apparently the patient was having a general physical, he noted in the morning at home his blood sugars to be in the range of 200. While at his physician's appointment his blood sugars were noted to be in the 400 range. Patient states that he was speaking to his doctor explaining that he's been very short of breath with minimal activities, intermittently he gets sharp chest pains, but he's been extremely weak unable to walk even short distances. Patient also notes at times that his heart is fluttering and racing fast. He also has swelling in his bilateral lower extremities, left leg greater than the right, he does state he said a history of a blood clot in that leg previously and it is always somewhat larger than the other. There is significant tenderness in the left lower extremity today. EKG on arrival here showed atrial fibrillation with a heart rate in the 90s, no acute changes noted. Chest x-ray did not reveal any acute findings. Blood pressure 120/70 with a heart rate in the 80s, 92% on room air. Temperature 97.8. White blood cell count 8.1, hemoglobin 13.6, platelet count 165. Sodium 139, potassium 3.4, BUN 15, creatinine 0.8. Blood glucose on arrival 425, 190 this morning. Plasma lactic acid 5.2 on admission 2.2 this morning. Magnesium 1.4. Troponins 0.04, 0.042, 0.050. I did review the office note, the patient had seen Dr. Pat on April 26 at which time he was instructed to stop his Brilinta, he was initiated on Plavix and Eliquis. The patient however was instructed to finish his Brilinta before making this change, and he had not yet started the Eliquis. At the time of my examination this morning, patient does complain of feeling extremely weak, denies any shortness of breath at present and no chest discomfort. 05/04/2018 Patient seen and examined this morning, overall feeling better. The patient did undergo a venous duplex study which did reveal evidence of a DVT, subsequent to that patient also had a CTA of the chest performed evidence of a PE. He is currently on high-dose heparin which we recommend to continue until tomorrow. Then we will start the patient on Eliquis per PE protocol.. Echocardiogram with Doppler study revealed an ejection fraction of 45-50%. Objective - Vital Signs Vital signs: Vital Signs Temp 96.0 F L 05/04/18 11:19 Pulse 83 05/04/18 11:19 Resp 18 05/04/18 11:19 BP 118/57 05/04/18 11:19 Pulse Ox 91 L 05/04/18 11:19 Intake & Output 05/03/18 05/04/18 05/04/18 18:59 06:59 18:59 Intake Total 684 468.677 733.323 Output Total 700 900 Balance -16 -431.323 733.323 Weight 92.8 kg 92.8 kg Intake: Intake, IV Titration 228.677 271.323 Amount Heparin Sod,Pork in 0.45% 228.677 271.323 NaCl 25,000 unit In 0.45 % NaCl 1 500ml.bag @ 18 UNITS/KG/HR 32.36 mls/hr IV .[id number] [facility] Rx#: [id number] Oral 684 240 462 Output: Urine 700 900 Other: Voiding Method Urinal # Voids 2 - Exam PHYSICAL EXAMINATION: GENERAL: 78-year-old gentleman in no acute distress at the time of my examination HEENT: Head is atraumatic, normocephalic. Pupils equal, round. Sclera anicteric. Conjunctiva are clear. Mucous membranes of the mouth are moist. Neck is supple. There is no elevated jugular venous pressure. No carotid bruit is heard. HEART EXAMINATION: Heart S1 and S2 irregularly irregular a systolic murmur is heard. CHEST EXAMINATION: Lungs are clear to auscultation and precussion. No chest wall tenderness is noted on palpation or with deep breathing. ABDOMEN: Soft, nontender. Bowel sounds are heard. No organomegaly noted. EXTREMITIES: 2+ peripheral pulses with 2+ evidence of peripheral edema in the left lower extremity, 1+ in the right. . NEUROLOGIC patient is awake, alert and oriented 3 . - Labs CBC & Chem 7: 05/04/18 05:34 05/04/18 05:34 Labs: Abnormal Lab Results - Last 24 Hours (Table) 05/03/18 05/03/18 05/03/18 Range/Units 02:43 14:16 14:16 RBC 4.01 L (4.30-5.90) m/uL Hct 38.6 L (39.0-53.0) % INR 1.2 H (<1.2) APTT (22.0-30.0) sec Glucose (74-99) mg/dL POC Glucose (mg/dL) (75-99) mg/dL Hemoglobin A1c 9.6 H (4.0-6.0) % 05/03/18 05/03/18 05/03/18 Range/Units 16:22 16:26 20:24 RBC (4.30-5.90) m/uL Hct (39.0-53.0) % INR (<1.2) APTT >200.0 H* (22.0-30.0) sec Glucose (74-99) mg/dL POC Glucose (mg/dL) >600 H 285 H (75-99) mg/dL Hemoglobin A1c (4.0-6.0) % 05/03/18 05/04/18 05/04/18 Range/Units 20:38 05:34 05:34 RBC 4.14 L (4.30-5.90) m/uL Hct (39.0-53.0) % INR (<1.2) APTT 127.9 H* (22.0-30.0) sec Glucose (74-99) mg/dL POC Glucose (mg/dL) 262 H (75-99) mg/dL Hemoglobin A1c (4.0-6.0) % 05/04/18 05/04/18 05/04/18 Range/Units 05:34 06:29 11:29 RBC (4.30-5.90) m/uL Hct (39.0-53.0) % INR (<1.2) APTT (22.0-30.0) sec Glucose 207 H (74-99) mg/dL POC Glucose (mg/dL) 229 H 347 H (75-99) mg/dL Hemoglobin A1c (4.0-6.0) % Microbiology - Last 24 Hours (Table) 05/02/18 15:22 Urine Culture - Final Urine,Voided 05/02/18 15:22 Blood Culture - Preliminary Blood No Growth after 24 hours Assessment and Plan Plan: Assessment and plan #1 symptoms of exertional shortness of breath with progressive weakness. Troponins 0.040, 0.042, 0.050. Positive pulmonary embolism on CT of the chest, positive DVT #2 symptoms of palpitations and heart fluttering, EKG on admission showed atrial fibrillation with moderately rapid ventricular response. #3 known history of coronary artery disease with recent myocardial infarction in February of this year at which time patient underwent angioplasty and stenting of ostial and proximal left main. Patient had been on Brilinta, this was recently changed in the office to Plavix and the aspirin had been discontinued. Patient however had not yet started the Plavix and was still taking Brilinta #4 diabetes, uncontrolled, blood sugars greater than 400 on admission #5 hypertension #6 hyperlipidemia #7 history of prior DVT #8 chronic persistent atrial fibrillation, patient just recently started back on Eliquis 2-1/2 mg one tablet by mouth twice a day on April 26. Patient had not yet started taking Eliquis. #9 elevated plasma lactic acid level #10 hypokalemia Plan At this point in time we will continue IV heparin for another 24 hours. From tomorrow we'll start the patient on Eliquis per PE protocol. Plan for possible discharge home in 48 hours if stable. DNP note has been reviewed, I agree with a documented findings and plan of care. Patient was seen and examined.
[2018-05-04] MEDS ORDERED: POTASSIUM CHLORIDE ER 20 MEQ TAB.ER PO STA (14:20)
--- NOTE | 2018-05-04 14:24 | P.PN ---
Subjective Progress Note Date: 05/04/18 78-year-old male with a past medical history significant for atrial fibrillation, COPD, diabetes mellitus, hypertension, and CAD who recently had a myocardial infarction with stent placement to the left main in February 2018, who originally presented to his primary care physicians office for a routine follow up visit. The patients blood sugars had been running in the 300-400s and complained of generalized fatigue. He was instructed to come to the hospital. He was evaluated in the emergency room. The patient also complained of increased swelling of his left lower extremity and tenderness. He denied shortness of breath. Although, he does report a non productive cough. Denies chest pain. Denies nausea or vomiting. The patient reports he has been compliant with his diabetic diet and has been taking his medications as prescribed. His blood sugars are normally well controlled. He was prescribed Aspirin and brilinta when he was discharged from the hospital after his PA. He saw Dr. Pat in the office recently and was told he could stop the brilinta and was switched to Plavix. Chest x-ray was completed and was negative for an acute process. Echocardiogram revealed ejection fraction between 45 and 50%, hypokinesis of LV wall, mild mitral regurgitation, and mild tricuspid regurgitation. Doppler of left lower extremity is positive for DVT from the mid femoral vein to the proximal calf veins CT angiogram revealed right lower lobe pulmonary emboli Laboratory data upon admission reveals white count 7.4. Hemoglobin 14.5. Platelet count 172. Sodium 134. Potassium 3.9. BUN 17. Creatinine 0.91. Glucose 425. Lactic acid 3.5. Magnesium 1.4. troponin 0.040, 0.042, 0.050 The patient was admitted to the hospital under the care of Dr. Schaefer. Consultations were placed to cardiology. 05/04/2018 Patient examined at the bedside with Dr. Schaefer. Patient states he is feeling well today. He denies SOB at rest. He is on room air with oxygen saturations greater than 92%. He continues to have a nonproductive cough. Denies chest pain. Denies nausea or vomiting. Tolerating PO intake. Vital signs have been stable. Most recent blood sugars are 229, 207, 262. Hemoglobin A1C is 9.6%. A1C in February 2018 was 6.7%. Patient is currently prescribed Januvia. Metformin was added to his regimen yesterday. adult educator has been consulted. He remains on heparin drip. Spoke with Elena Sandy NOZZLEMAN with cardiology who states they would like to continue heparin drip overnight and patient may begin Eliquis tomorrow. PHYSICAL EXAM: GENERAL: This is a 78-year-old male in no apparent distress at the time of examination. Pleasant and cooperative. HEENT: Head is atraumatic, normocephalic. Pupils are equal, round, and reactive to light. Sclerae anicteric. Conjunctivae are clear. Mucus membranes of the mouth are moist. Neck is supple. RESPIRATORY: Clear to auscultation. No wheezes, rales, or rhonchi. No use of accessory muscles. Patient maintaining oxygen saturation greater than 92%. No chest wall tenderness is noted on palpation or with deep breathing. CARDIOVASCULAR: Irregular rhythm. S1 and S2 noted. No JVD noted. No S3 or S4 noted. GASTROINTESTINAL: No distention noted. Abdomen soft and round. Normal active bowel sounds auscultated x 4 quadrants. No pain or tenderness noted upon palpation. INTEGUMENTARY: No cyanosis. No jaundice. No rashes noted. No cellulitis noted. EXTREMITIES: 2+ peripheral pulses. 2+ left lower extremity edema. NEUROLOGIC: Cranial nerves II-XII intact. PSYCHIATRIC: Awake, alert, and oriented X 3. Appropriate affect. Intact judgement and insight. ASSESSMENT: Right lower lobe pulmonary emboli Acute DVT from the left mid femoral vein to the proximal calf veins Hyperglycemia Diabetes Mellitus, Type II, currently uncontrolled Lactic acidosis Coronary artery disease with recent myocardial infarction, s/p stent of ostial and proximal left main Hypertension Hyperlipidema Chronic atrial fibrillation COPD, no evidence of acute exacerbation History of prior DVT GERD Obesity: BMI 31.0 PLAN: Cardiology on consult. Appreciate recommendations and input Brilinta and aspirin discontinued per cardiology. Patient started on plavix Continue heparin drip overnight per cardiology recommendations Will begin Eliquis tomorrow at 10mg BID for 1 week, then decrease to 5mg PO BID. Continue Januvia and Metformin Continue Novolog sliding scale ACHS Will add Novolog 10 units AC TID adult educator on consult. Appreciate input Home meds as appropriate Monitor labs GI prophylaxis: Pepcid 20mg PO BID DVT prophylaxis: Heparin drip Monitor vital signs and address as appropriate Discharge planning: Patient to return home when stable Further recommendations pending patient's course Nurse practitioner note has been reviewed by physician. Signing provider agrees with the documented findings, assessment, and plan of care. Objective - Vital Signs Vital signs: Vital Signs Temp 96.0 F L 05/04/18 11:19 Pulse 83 05/04/18 11:19 Resp 18 05/04/18 11:19 BP 118/57 05/04/18 11:19 Pulse Ox 91 L 05/04/18 11:19 Intake & Output 05/03/18 05/04/18 05/04/18 18:59 06:59 18:59 Intake Total 684 468.677 511.323 Output Total 700 900 Balance -16 -431.323 511.323 Weight 92.8 kg 92.8 kg Intake: Intake, IV Titration 228.677 271.323 Amount Heparin Sod,Pork in 0.45% 228.677 271.323 NaCl 25,000 unit In 0.45 % NaCl 1 500ml.bag @ 18 UNITS/KG/HR 32.36 mls/hr IV .[id number] [facility] Rx#: [id number] Oral 684 240 240 Output: Urine 700 900 Other: Voiding Method Urinal # Voids 2 - Labs CBC & Chem 7: 05/04/18 05:34 05/04/18 05:34 Labs: Abnormal Lab Results - Last 24 Hours (Table) 05/03/18 05/03/18 05/03/18 Range/Units 02:43 14:16 14:16 RBC 4.01 L (4.30-5.90) m/uL Hct 38.6 L (39.0-53.0) % INR 1.2 H (<1.2) APTT (22.0-30.0) sec Glucose (74-99) mg/dL POC Glucose (mg/dL) (75-99) mg/dL Hemoglobin A1c 9.6 H (4.0-6.0) % 05/03/18 05/03/18 05/03/18 Range/Units 16:22 16:26 20:24 RBC (4.30-5.90) m/uL Hct (39.0-53.0) % INR (<1.2) APTT >200.0 H* (22.0-30.0) sec Glucose (74-99) mg/dL POC Glucose (mg/dL) >600 H 285 H (75-99) mg/dL Hemoglobin A1c (4.0-6.0) % 05/03/18 05/04/18 05/04/18 Range/Units 20:38 05:34 05:34 RBC 4.14 L (4.30-5.90) m/uL Hct (39.0-53.0) % INR (<1.2) APTT 127.9 H* (22.0-30.0) sec Glucose (74-99) mg/dL POC Glucose (mg/dL) 262 H (75-99) mg/dL Hemoglobin A1c (4.0-6.0) % 05/04/18 05/04/18 05/04/18 Range/Units 05:34 06:29 11:29 RBC (4.30-5.90) m/uL Hct (39.0-53.0) % INR (<1.2) APTT (22.0-30.0) sec Glucose 207 H (74-99) mg/dL POC Glucose (mg/dL) 229 H 347 H (75-99) mg/dL Hemoglobin A1c (4.0-6.0) % Microbiology - Last 24 Hours (Table) 05/02/18 15:22 Urine Culture - Final Urine,Voided 05/02/18 15:22 Blood Culture - Preliminary Blood No Growth after 24 hours
[2018-05-04 17:04] LABS: Glucose,Whole Blood 284 mg/dL (75-99)
[2018-05-04] MEDS: ATORVASTATIN 80 MG TAB PO SCH (20:18)
[2018-05-04 20:19] LABS: Glucose,Whole Blood 166 mg/dL (75-99)
[2018-05-04] MEDS: LOSARTAN 25 MG TAB PO SCH (20:19)
[2018-05-05 04:39] VITALS: RESP 20
[2018-05-05 05:59] LABS: Glucose,Whole Blood 228 mg/dL (75-99)
[2018-05-05 06:14] LABS: Basophils # (A) 0.1 k/uL (0-0.2); Basophils % (A) 1 %; Eosinophils # (A) 0.4 k/uL (0-0.7); Eosinophils % (A) 4 %; HCT 37.3 % (39.0-53.0); HGB 12.5 gm/dL (13.0-17.5); Lymphocytes # (A) 2.6 k/uL (1.0-4.8); Lymphocytes % (A) 29 %; MCH 32.7 pg (25.0-35.0); MCHC 33.4 g/dL (31.0-37.0); MCV 97.9 fL (80.0-100.0); Monocytes # (A) 0.7 k/uL (0-1.0); Monocytes % (A) 7 %; Neutrophils # (A) 5.2 k/uL (1.3-7.7); Neutrophils % (A) 57 %; Platelet Count 151 k/uL (150-450); RBC 3.82 m/uL (4.30-5.90); RDW 14.4 % (11.5-15.5)
[2018-05-05 06:41] LABS: Anion Gap 6 mmol/L; Blood Urea Nitrogen 12 mg/dL (9-20); Calcium 8.8 mg/dL (8.4-10.2); Carbon Dioxide 25 mmol/L (22-30); Chloride 105 mmol/L (98-107); Glucose 209 mg/dL (74-99); Potassium 4.1 mmol/L (3.5-5.1); Sodium 136 mmol/L (137-145)
[2018-05-05] MEDS: LEVOTHYROXINE 75 MCG TAB PO SCH (07:01)
[2018-05-05] MEDS: INSULIN ASPART 100 UNIT/ML 1 ML 10 ML VIAL SQ SCH ×4 (07:01→12:24)
[2018-05-05] MEDS: CLOPIDOGREL 75 MG TAB PO SCH (08:47)
[2018-05-05] MEDS: GABAPENTIN 100 MG CAP PO SCH (08:47)
[2018-05-05] MEDS: FAMOTIDINE 20 MG TAB PO SCH (08:47)
[2018-05-05] MEDS: DIGOXIN 125 MCG TAB PO SCH (08:48)
[2018-05-05] MEDS: FUROSEMIDE 20 MG TAB PO SCH (08:48)
[2018-05-05] MEDS: LINAGLIPTIN 5 MG TABLET PO SCH (08:48)
[2018-05-05] MEDS: METOPROLOL TARTRATE 50 MG TAB PO SCH (08:48)
[2018-05-05 08:58] VITALS: TEMP 98.2
[2018-05-05] MEDS ORDERED: APIXABAN 5 MG TAB PO SCH (09:00)
[2018-05-05 11:35] LABS: Glucose,Whole Blood 314 mg/dL (75-99)
--- NOTE | 2018-05-05 11:55 | P.DS ---
Providers Date of admission: 05/03/18 15:33 Expected date of discharge: 05/05/18 Attending physician: Devonte Scahefer Consults: 05/02/18 18:05 Consult Physician Urgent Consulting Provider: Jamin Reich Consult Reason/Comments: cp Do you want consulting provider notified?: Yes Primary care physician: Devonte Schaefer Hospital Course: 78-year-old male with a past medical history significant for atrial fibrillation, COPD, diabetes mellitus, hypertension, and CAD who recently had a myocardial infarction with stent placement to the left main in February 2018, who originally presented to his primary care physicians office for a routine follow up visit. The patients blood sugars had been running in the 300-400s and complained of generalized fatigue. He was instructed to come to the hospital. He was evaluated in the emergency room. The patient also complained of increased swelling of his left lower extremity and tenderness. He denied shortness of breath. Although, he does report a non productive cough. Denies chest pain. Denies nausea or vomiting. The patient reports he has been compliant with his diabetic diet and has been taking his medications as prescribed. His blood sugars are normally well controlled. He was prescribed Aspirin and brilinta when he was discharged from the hospital after his OH. He saw Dr. Pat in the office recently and was told he could stop the brilinta and was switched to Plavix. Chest x-ray was completed and was negative for an acute process. Echocardiogram revealed ejection fraction between 45 and 50%, hypokinesis of LV wall, mild mitral regurgitation, and mild tricuspid regurgitation. Doppler of left lower extremity is positive for DVT from the mid femoral vein to the proximal calf veins CT angiogram revealed right lower lobe pulmonary emboli Laboratory data upon admission reveals white count 7.4. Hemoglobin 14.5. Platelet count 172. Sodium 134. Potassium 3.9. BUN 17. Creatinine 0.91. Glucose 425. Lactic acid 3.5. Magnesium 1.4. troponin 0.040, 0.042, 0.050 The patient was admitted to the hospital under the care of Dr. Schaefer. Consultations were placed to cardiology. 05/04/2018 Patient examined at the bedside with Dr. Schaefer. Patient states he is feeling well today. He denies SOB at rest. He is on room air with oxygen saturations greater than 92%. He continues to have a nonproductive cough. Denies chest pain. Denies nausea or vomiting. Tolerating PO intake. Vital signs have been stable. Most recent blood sugars are 229, 207, 262. Hemoglobin A1C is 9.6%. A1C in February 2018 was 6.7%. Patient is currently prescribed Januvia. Metformin was added to his regimen yesterday. inclusion paraeducator has been consulted. He remains on heparin drip. Spoke with Elena Sandy EDUCATION COUNSELOR with cardiology who states they would like to continue heparin drip overnight and patient may begin Eliquis tomorrow. 05/05/2018 Patient examined at the bedside. He states he is feeling well. He remains on a heparin drip which will be discontinued this morning. The patient remains on plavix. He will begin Eliquis 10mg BID today for 7 days and then will decrease his dose to 5mg PO BID per PE protocol. Patient will be discharged home on Metformin and also Novolog 10 units with meals in addition to his Januvia. Patient is to take his blood sugars 4x day and keep a log to bring to follow up appointment with Dr. Schaefer. Discharge Diagnosis: Right lower lobe pulmonary emboli Acute DVT from the left mid femoral vein to the proximal calf veins Hyperglycemia Diabetes Mellitus, Type II, currently uncontrolled Lactic acidosis Coronary artery disease with recent myocardial infarction, s/p stent of ostial and proximal left main Hypertension Hyperlipidema Chronic atrial fibrillation COPD, no evidence of acute exacerbation History of prior DVT GERD Obesity: BMI 31.0 Nurse practitioner note has been reviewed by physician. Signing provider agrees with the documented findings, assessment, and plan of care. Patient Condition at Discharge: Good Plan - Discharge Summary Discharge Rx Participant: Yes New Discharge Prescriptions: New Clopidogrel [Plavix] 75 mg PO DAILY #30 tab Insulin Aspart [NovoLOG (formulary)] 10 unit SQ AC-TID #1 vial metFORMIN HCL [Glucophage] 500 mg PO BID-W/MEALS #60 tab Apixaban [Eliquis] 5 mg PO BID #74 tab Continue Gabapentin [Neurontin] 100 mg PO DAILY Levothyroxine Sodium [Synthroid] 150 mcg PO DAILY Albuterol Inhaler [Ventolin Hfa Inhaler] 1 - 2 puff INHALATION RT-Q6H PRN PRN Reason: Shortness Of Breath sitaGLIPtin [Januvia] 100 mg PO DAILY Atorvastatin [Lipitor] 80 mg PO HS #30 tab Digoxin [Lanoxin] 125 mcg PO DAILY #30 tab Furosemide [Lasix] 20 mg PO BID #60 tab Losartan [Cozaar] 25 mg PO HS #30 tab Metoprolol Tartrate [Lopressor] 50 mg PO BID #60 tab Discontinued Aspirin 81 mg PO DAILY #30 chew Ticagrelor [Brilinta] 90 mg PO BID #60 tab Discharge Medication List Gabapentin [Neurontin] 100 mg PO DAILY 03/09/18 [History] Levothyroxine Sodium [Synthroid] 150 mcg PO DAILY 03/09/18 [History] Albuterol Inhaler [Ventolin Hfa Inhaler] 1 - 2 puff INHALATION RT-Q6H PRN [History] sitaGLIPtin [Januvia] 100 mg PO DAILY 03/11/18 [History] Atorvastatin [Lipitor] 80 mg PO HS #30 tab 03/14/18 [Rx] Digoxin [Lanoxin] 125 mcg PO DAILY #30 tab 03/14/18 [Rx] Furosemide [Lasix] 20 mg PO BID #60 tab 03/14/18 [Rx] Losartan [Cozaar] 25 mg PO HS #30 tab 03/14/18 [Rx] Metoprolol Tartrate [Lopressor] 50 mg PO BID #60 tab 03/14/18 [Rx] Apixaban [Eliquis] 5 mg PO BID #74 tab 05/05/18 [Rx] Clopidogrel [Plavix] 75 mg PO DAILY #30 tab 05/05/18 [Rx] Insulin Aspart [NovoLOG (formulary)] 10 unit SQ AC-TID #1 vial 05/05/18 [Rx] metFORMIN HCL [Glucophage] 500 mg PO BID-W/MEALS #60 tab 05/05/18 [Rx] Follow up Appointment(s)/Referral(s): [facility] [Provider Group] - 1 Week Devonte Schaefer MD [Primary Care Provider] - 05/10/18 1:15 pm (Wednesday) Discharge Disposition: HOME SELF-CARE
[2018-05-05 12:15] VITALS: BP 132/84; PULSE 85
--- NOTE | 2018-05-05 14:34 | P.PN ---
Subjective Progress Note Date: 05/05/18 This is a 78-year-old gentleman who follows regularly with Dr. Francisco in the office. He has a known history of hypertension, diabetes, hyperlipidemia , chronic persistent atrial fibrillation, coronary artery disease, most recently the patient was in the hospital in February at which time he incurred a non-Q-wave myocardial infarction, he underwent angioplasty and stenting of the ostial and proximal left main intra-aortic balloon pump was placed at that time. He also had an echocardiogram with Doppler study performed on that visit which revealed an ejection fraction of 40-45%. Mild to moderate MR, mild-to- moderate TR, moderate to severe pulmonary hypertension. He presents to the hospital on this occasion mainly with symptoms of exertional shortness of breath and weakness. Apparently the patient was having a general physical, he noted in the morning at home his blood sugars to be in the range of 200. While at his physician's appointment his blood sugars were noted to be in the 400 range. Patient states that he was speaking to his doctor explaining that he's been very short of breath with minimal activities, intermittently he gets sharp chest pains, but he's been extremely weak unable to walk even short distances. Patient also notes at times that his heart is fluttering and racing fast. He also has swelling in his bilateral lower extremities, left leg greater than the right, he does state he said a history of a blood clot in that leg previously and it is always somewhat larger than the other. There is significant tenderness in the left lower extremity today. EKG on arrival here showed atrial fibrillation with a heart rate in the 90s, no acute changes noted. Chest x-ray did not reveal any acute findings. Blood pressure 120/70 with a heart rate in the 80s, 92% on room air. Temperature 97.8. White blood cell count 8.1, hemoglobin 13.6, platelet count 165. Sodium 139, potassium 3.4, BUN 15, creatinine 0.8. Blood glucose on arrival 425, 190 this morning. Plasma lactic acid 5.2 on admission 2.2 this morning. Magnesium 1.4. Troponins 0.04, 0.042, 0.050. I did review the office note, the patient had seen Dr. Pat on April 26 at which time he was instructed to stop his Brilinta, he was initiated on Plavix and Eliquis. The patient however was instructed to finish his Brilinta before making this change, and he had not yet started the Eliquis. At the time of my examination this morning, patient does complain of feeling extremely weak, denies any shortness of breath at present and no chest discomfort. 05/04/2018 Patient seen and examined this morning, overall feeling better. The patient did undergo a venous duplex study which did reveal evidence of a DVT, subsequent to that patient also had a CTA of the chest performed evidence of a PE. He is currently on high-dose heparin which we recommend to continue until tomorrow. Then we will start the patient on Eliquis per PE protocol.. Echocardiogram with Doppler study revealed an ejection fraction of 45-50%. 05/05/2018 Patient seen and examined this morning, doing well overall. Breathing is stable. IV heparin will be discontinued today patient will be initiated on Eliquis 10 mg one tablet by mouth twice a day for 7 days, then the dose will be decreased to 5 mg twice a day. A follow-up appointment will be made with Dr. Francisco in the office post discharge. Objective - Vital Signs Vital signs: Vital Signs Temp 98.2 F 05/05/18 12:12 Pulse 85 05/05/18 12:12 Resp 20 05/05/18 12:12 BP 132/84 05/05/18 12:12 Pulse Ox 94 L 05/05/18 12:12 Intake & Output 05/04/18 05/05/18 05/05/18 18:59 06:59 18:59 Intake Total 1253.323 477.953 458 Output Total 250 Balance 1253.323 227.953 458 Weight 92.8 kg 94 kg Intake: Intake, IV Titration 431.323 237.953 Amount Heparin Sod,Pork in 0.45% 271.323 177.953 NaCl 25,000 unit In 0.45 % NaCl 1 500ml.bag @ 18 UNITS/KG/HR 32.36 mls/hr IV .[id number] [facility] Rx#: [id number] Sodium Chloride 0.9% 1, 160 60 000 ml @ 20 mls/hr IV . Q24H [facility] Rx#:[id number] Oral 822 240 458 Output: Urine 250 Other: Voiding Method Toilet Toilet Urinal Urinal # Voids 1 1 - Exam PHYSICAL EXAMINATION: GENERAL: 78-year-old gentleman in no acute distress at the time of my examination HEENT: Head is atraumatic, normocephalic. Pupils equal, round. Sclera anicteric. Conjunctiva are clear. Mucous membranes of the mouth are moist. Neck is supple. There is no elevated jugular venous pressure. No carotid bruit is heard. HEART EXAMINATION: Heart S1 and S2 irregularly irregular a systolic murmur is heard. CHEST EXAMINATION: Lungs are clear to auscultation and precussion. No chest wall tenderness is noted on palpation or with deep breathing. ABDOMEN: Soft, nontender. Bowel sounds are heard. No organomegaly noted. EXTREMITIES: 2+ peripheral pulses with 2+ evidence of peripheral edema in the left lower extremity, 1+ in the right. . NEUROLOGIC patient is awake, alert and oriented 3 . - Labs CBC & Chem 7: 05/05/18 05:44 05/05/18 05:44 Labs: Abnormal Lab Results - Last 24 Hours (Table) 05/04/18 05/04/18 05/04/18 Range/Units 14:06 16:41 20:08 RBC (4.30-5.90) m/uL Hgb (13.0-17.5) gm/dL Hct (39.0-53.0) % APTT 63.1 H (22.0-30.0) sec Sodium (137-145) mmol/L Glucose (74-99) mg/dL POC Glucose (mg/dL) 284 H 166 H (75-99) mg/dL 05/05/18 05/05/18 05/05/18 Range/Units 05:44 05:44 05:44 RBC 3.82 L (4.30-5.90) m/uL Hgb 12.5 L (13.0-17.5) gm/dL Hct 37.3 L (39.0-53.0) % APTT 55.4 H (22.0-30.0) sec Sodium 136 L (137-145) mmol/L Glucose 209 H (74-99) mg/dL POC Glucose (mg/dL) (75-99) mg/dL 05/05/18 05/05/18 Range/Units 05:57 11:34 RBC (4.30-5.90) m/uL Hgb (13.0-17.5) gm/dL Hct (39.0-53.0) % APTT (22.0-30.0) sec Sodium (137-145) mmol/L Glucose (74-99) mg/dL POC Glucose (mg/dL) 228 H 314 H (75-99) mg/dL Microbiology - Last 24 Hours (Table) 05/02/18 15:22 Blood Culture - Preliminary Blood No Growth after 48 hours Assessment and Plan Plan: Assessment and plan #1 symptoms of exertional shortness of breath with progressive weakness. Troponins 0.040, 0.042, 0.050. Positive pulmonary embolism on CT of the chest, positive DVT #2 symptoms of palpitations and heart fluttering, EKG on admission showed atrial fibrillation with moderately rapid ventricular response. #3 known history of coronary artery disease with recent myocardial infarction in February of this year at which time patient underwent angioplasty and stenting of ostial and proximal left main. Patient had been on Brilinta, this was recently changed in the office to Plavix and the aspirin had been discontinued. Patient however had not yet started the Plavix and was still taking Brilinta #4 diabetes, uncontrolled, blood sugars greater than 400 on admission #5 hypertension #6 hyperlipidemia #7 history of prior DVT #8 chronic persistent atrial fibrillation, patient just recently started back on Eliquis 2-1/2 mg one tablet by mouth twice a day on April 26. Patient had not yet started taking Eliquis. #9 elevated plasma lactic acid level #10 hypokalemia Plan IV heparin will be discontinued and patient will be started on Eliquis 10 mg one tablet by mouth twice a day. After one week this will be decreased to 5 mg by mouth twice a day. Discharged home today by Dr. horton, follow-up appointment with Dr. Pat in the office post discharge. DNP note has been reviewed, I agree with a documented findings and plan of care. Patient was seen and examined.
[2018-05-05] MEDS ORDERED: metFORMIN 500 MG TAB PO SCH (17:30)
== END 2018-05-05 13:55 | disposition home or self-care (01) | DRG 299 ==
LOC: EC 14:38 → 3SCARD 18:05 → OBSVTOIN 05-03 15:33
PROVIDERS: ADMIT Family Medicine; ATTEND Family Medicine
DX: I82.412 Acute embolism and thrombosis of left femoral vein (principal); I26.99 Other pulmonary embolism without acute cor pulmonale; E87.2 Acidosis; I48.1 Persistent atrial fibrillation; E11.65 Type 2 diabetes mellitus with hyperglycemia; E66.9 Obesity, unspecified; E78.5 Hyperlipidemia, unspecified; E87.6 Hypokalemia; F32.9 Major depressive disorder, single episode, unspecified; I08.1 Rheumatic disorders of both mitral and tricuspid valves; I11.0 Hypertensive heart disease with heart failure; I25.10 Atherosclerotic heart disease of native coronary artery without angina pectoris; I25.2 Old myocardial infarction; I27.20 Pulmonary hypertension, unspecified; J44.9 Chronic obstructive pulmonary disease, unspecified; K21.9 Gastro-esophageal reflux disease without esophagitis; Z68.31 Body mass index [BMI] 31.0-31.9, adult; Z79.01 Long term (current) use of anticoagulants; Z79.02 Long term (current) use of antithrombotics/antiplatelets; Z79.4 Long term (current) use of insulin; Z79.82 Long term (current) use of aspirin; Z79.890 Hormone replacement therapy; Z79.899 Other long term (current) drug therapy; Z86.718 Personal history of other venous thrombosis and embolism; Z87.891 Personal history of nicotine dependence; Z95.5 Presence of coronary angioplasty implant and graft; Z90.49 Acquired absence of other specified parts of digestive tract; Z88.8 Allergy status to other drugs, medicaments and biological substances
CPT/HCPCS: 36415; 71045; 71275; 80048; 80053; 80061; 81003; 82009; 82550; 82553; 83036; 83605; 83735; 83880; 84100; 84484; 85025; 85379; 85610; 85730; 87040; 87086; 93005; 93306; 96360; 96361; 99291

== ENCOUNTER → 2018-08-29 | Outpatient (CLI) | payer MEDICARE ==
[2018-08-29 12:18] LABS: Basophils # (A) 0.1 k/uL (0-0.2); Basophils % (A) 1 %; Eosinophils # (A) 0.3 k/uL (0-0.7); Eosinophils % (A) 3 %; HCT 46.2 % (39.0-53.0); HGB 14.7 gm/dL (13.0-17.5); Lymphocytes # (A) 1.9 k/uL (1.0-4.8); Lymphocytes % (A) 23 %; MCH 30.1 pg (25.0-35.0); MCHC 31.9 g/dL (31.0-37.0); MCV 94.3 fL (80.0-100.0); Mean Platelet Volume 7.4; Monocytes # (A) 0.7 k/uL (0-1.0); Monocytes % (A) 8 %; Neutrophils # (A) 5.1 k/uL (1.3-7.7); Neutrophils % (A) 63 %; Platelet Count 214 k/uL (150-450); RDW 13.6 % (11.5-15.5); WBC 8.1 k/uL (3.8-10.6)
[2018-08-29 14:53] LABS: Erythrocyte Sedimentation Rate 22 mm/hr (0-15)
[2018-08-29 16:29] LABS: Albumin 4.2 g/dL (3.80-4.90); Albumin/Globulin Ratio 2.1 (1.60-3.17); Anion Gap 13.9 mmol/L (4.00-12.00); Calcium 10.1 mg/dL (8.7-10.3); Carbon Dioxide 23.1 mmol/L (21.6-31.8); Potassium 5.5 mmol/L (3.5-5.5); Total Bilirubin 0.6 mg/dL (0.2-1.2); Total Protein 6.2 g/dL (6.2-8.2)
[2018-08-29 16:35] LABS: T4, Free (Free Thyroxine) 1.7 ng/dL (0.80-1.80)
[2018-08-29 18:07] LABS: Vitamin D 25 Hydroxy 30.9 ng/mL (30.0-100.0)
== END | disposition home or self-care (01) ==
LOC: LABWHC1 11:16
PROVIDERS: ATTEND Internal Medicine
DX: R53.1 Weakness (principal); R53.83 Other fatigue; I42.9 Cardiomyopathy, unspecified
CPT/HCPCS: 36415; 80053; 82306; 82607; 84439; 84443; 85025; 85652

== ENCOUNTER → 2019-12-11 | Outpatient (CLI) | payer MEDICARE ==
[2019-12-11 10:45] LABS: HCT 43.8 % (39.0-53.0); HGB 14.7 gm/dL (13.0-17.5); MCH 32.4 pg (25.0-35.0); MCHC 33.4 g/dL (31.0-37.0); Mean Platelet Volume 7.5; Platelet Count 241 k/uL (150-450); RBC 4.52 m/uL (4.30-5.90); RDW 13.2 % (11.5-15.5); WBC 10.7 k/uL (3.8-10.6)
[2019-12-11 11:03] LABS: Potassium 3.9 mmol/L (3.5-5.1)
== END | disposition home or self-care (01) ==
LOC: LABPAT 09:31
PROVIDERS: ATTEND Internal Medicine Cardiovascular Disease
DX: Z01.818 Encounter for other preprocedural examination (principal); R94.30 Abnormal result of cardiovascular function study, unspecified
CPT/HCPCS: 36415; 80051; 82565; 84520; 85027

== ENCOUNTER 2019-12-18 06:06 | Day surgery (SDC) | payer MEDICARE ==
[2019-12-15 09:08] VITALS: BMI 30.4
[~2019-12-18 06:06] MED LIST: ALPRAZolam 0.25 MG TAB PO PRN; ALPRAZolam 0.5 MG TAB PO PRN; ASPIRIN 325 MG TAB PO STA; ATORVASTATIN 80 MG TAB PO STA; NITROGLYCERIN SL TABS 0.4 MG TAB SUBLINGUAL PRN; SODIUM CHLORIDE 0.9% 1,000 ML in EMPTY BAG 1 BAG IV ONE
[2019-12-18 06:46] LABS: Glucose,Whole Blood 204 mg/dL (75-99)
[2019-12-18] MEDS ORDERED: SODIUM CHLORIDE 0.9% 1,000 ML IV ONE (06:49)
[2019-12-18] MEDS ORDERED: INSULIN ASPART (NovoLOG) 100 UNIT/ML VIAL SQ ONE (06:50)
[2019-12-18] MEDS ORDERED: LIDOCAINE 1% INJ 10MG/ML (20 ML MDV) ONE ×2 (07:18→08:11)
[2019-12-18] MEDS ORDERED: fentaNYL (PF) 50 MCG/ML 2 ML AMP ONE (07:30)
[2019-12-18] MEDS ORDERED: fentaNYL (PF) 50 MCG/ML 2 ML AMP IV ONE (07:44)
[2019-12-18] MEDS ORDERED: MIDAZOLAM 2 MG/2 ML VIAL IV ONE (07:44)
[2019-12-18] MEDS ORDERED: LIDOCAINE 1% INJ 10MG/ML (20 ML MDV) SQ ONE (07:46)
[2019-12-18] MEDS ORDERED: IOPAMIDOL-370 100ML BTL INJ ONE ×3 (08:05→12:31)
[2019-12-18] MEDS ORDERED: HEPARIN SODIUM 1,000 UN/ML (10ML VL) ONE (08:11)
[2019-12-18] MEDS ORDERED: IV FLUID CONTINUATION 850 ML IV ONE (12:04)
[2019-12-18] MEDS ORDERED: MIDAZOLAM 2 MG/2 ML VIAL IVP ONE (12:07)
[2019-12-18] MEDS ORDERED: BIVALIRUDIN 250 MG in SODIUM CHLORIDE 0.9% 50 ML IV ONE (12:14)
[2019-12-18] MEDS ORDERED: BIVALIRUDIN 250 MG VIAL IV ONE (12:14)
[2019-12-18] MEDS ORDERED: NITROGLYCERIN 1000MCG/10ML SYRINGE INTRACORON ONE (12:25)
[2019-12-18] MEDS ORDERED: CLOPIDOGREL 75 MG TAB PO ONE (12:33)
[2019-12-18] MEDS ORDERED: ALBUTEROL NEBULIZED 2.5 MG/3 ML INHALATION PRN (12:50)
--- NOTE | 2019-12-18 13:50 | PTCA ---
PERCUTANEOUSTRANS CORORONARY ANGIOGRAPHY DATE OF SERVICE: 12/18/2019 PROCEDURE PERFORMED: PTCA and stenting of proximal RCA with a drug-eluting stent. PERFORMED BY: Dr. Dina Mondragon. ANESTHESIA: Moderate conscious sedation time was 24 minutes. Patient was administered Versed. Oxygen, hemodynamics and EKG were monitored closely. CLINICAL INFORMATION: Mr. Ag Santana is a 79-year-old gentleman with a known history of hypertension, diabetes, hyperlipidemia, who underwent a stenting of a left main ostium and proximal portion performed in the setting of an acute myocardial infarction in February 2018. Because of symptoms of angina, shortness of breath, he had a stress test which revealed inferolateral ischemia. He was advised cardiac cath after evaluation by Dr. Pat. Dr. Pat performed a cardiac cath which revealed that the left main was patent, although it was difficult to selectively engage the left main because of the fact there was ostial stent. Flow in the left main was excellent. No significant disease in the left system. Minor diffuse irregularities were noted. RCA proximally had a 70% to 80% eccentric lesion best seen in the cranial projection. Was advised intervention that was performed on the same day. PROCEDURE NOTE: The existing 6-Ethiopian introducer in the right femoral artery was used to perform procedure. A standard right Brenda guide catheter was used to cannulate the right coronary artery. A BMW wire was used to cross the lesion. Wire was kept distally. An 8 mm long 2.5 caliber NC Trek balloon was used to pre-dilate the lesion. I then deployed a 3.0 caliber 18 mm long Xience stent at 13 atmospheres. Patient had no chest discomfort but inferior ST elevation was noted. Excellent angiographic result was achieved without complication. He was already on aspirin and Plavix. He received additional 225 mg of Plavix and was also placed on Angiomax bolus and drip. Excellent angiographic result without complication was achieved. The sheath was then taken out and Angio-Seal device used to secure hemostasis and he was sent to the room in a stable condition. Findings were discussed with the patient and . I expect he will be discharged tomorrow if he remains stable. MMODL / IJN: [id number] /
[2019-12-18 17:04] LABS: Glucose,Whole Blood 228 mg/dL (75-99)
[2019-12-18] MEDS: SODIUM CHLORIDE 0.9% 1,000 ML IV SCH (17:59)
[2019-12-18] MEDS: APIXABAN 5 MG TAB PO SCH (20:58)
[2019-12-18] MEDS: METOPROLOL TARTRATE 50 MG TAB PO SCH (20:58)
[2019-12-18] MEDS ORDERED: ATORVASTATIN 80 MG TAB PO SCH (21:00)
[2019-12-18 21:03] LABS: Glucose,Whole Blood 217 mg/dL (75-99)
[2019-12-19 06:06] LABS: Basophils % (A) 1 %; Eosinophils # (A) 0.2 k/uL (0-0.7); Eosinophils % (A) 3 %; HCT 36.4 % (39.0-53.0); HGB 12.6 gm/dL (13.0-17.5); Lymphocytes # (A) 1.8 k/uL (1.0-4.8); Lymphocytes % (A) 22 %; MCH 33.4 pg (25.0-35.0); MCHC 34.5 g/dL (31.0-37.0); MCV 96.7 fL (80.0-100.0); Mean Platelet Volume 7.5; Monocytes # (A) 0.6 k/uL (0-1.0); Monocytes % (A) 7 %; Neutrophils # (A) 5.4 k/uL (1.3-7.7); Neutrophils % (A) 67 %; Platelet Count 205 k/uL (150-450); RBC 3.77 m/uL (4.30-5.90); RDW 13.3 % (11.5-15.5); WBC 8.1 k/uL (3.8-10.6)
[2019-12-19 06:15] LABS: African American GFR (CKD) >90 (>60 ml/min/1.73 sqM); Anion Gap 5 mmol/L; Blood Urea Nitrogen 17 mg/dL (9-20); Calcium 8.4 mg/dL (8.4-10.2); Carbon Dioxide 29 mmol/L (22-30); Chloride 100 mmol/L (98-107); Glucose 170 mg/dL (74-99); Non-African American GFR(CKD) 82 (>60 ml/min/1.73 sqM); Potassium 2.8 mmol/L (3.5-5.1); Sodium 134 mmol/L (137-145)
[2019-12-19] MEDS ORDERED: LEVOTHYROXINE 137 MCG TAB PO SCH (06:30)
[2019-12-19] MEDS: SODIUM CHLORIDE 0.9% 1,000 ML IV SCH (06:52)
[2019-12-19 07:08] LABS: Glucose,Whole Blood 190 mg/dL (75-99)
[2019-12-19] MEDS ORDERED: PANTOPRAZOLE 40 MG TABLET PO SCH (07:30)
[2019-12-19] MEDS ORDERED: Potassium Replacement Protocol 1 EACH MISC MISCELLANE PRN (07:36)
[2019-12-19 07:57] VITALS: BP 105/60; PULSE 87; RESP 20; TEMP 97.8
[2019-12-19] MEDS: METOPROLOL TARTRATE 50 MG TAB PO SCH (07:58)
[2019-12-19] MEDS: POTASSIUM CHLORIDE ER 20 MEQ TAB.ER PO SCH ×3 (07:58→09:43)
[2019-12-19] MEDS: APIXABAN 5 MG TAB PO SCH (07:59)
[2019-12-19] MEDS ORDERED: CLOPIDOGREL 75 MG TAB PO SCH (09:00)
[2019-12-19] MEDS ORDERED: Magnesium Replacement Protocol 1 EACH MISC MISCELLANE PRN (09:00)
[2019-12-19] MEDS ORDERED: INSULIN DETEMIR (LEVEMIR) 100 UNIT/ML SYR SQ SCH (09:00)
[2019-12-19] MEDS ORDERED: LINAGLIPTIN 5 MG TABLET PO SCH (09:00)
--- NOTE | 2019-12-19 09:19 | CC ---
CARDIAC CATHETERIZATION REPORT INDICATION: Exertional shortness of breath with abnormal stress test showing inferolateral ischemia. PROCEDURE NOTE: After obtaining informed consent, left heart catheterization and coronary angiogram were performed via the right femoral artery using standard Brenda catheters. The patient tolerated the procedure well without any obvious immediate complications. Patient received moderate conscious sedation. Total sedation time was 15 minute. The patient had the history of prior stenting involving left main coronary artery. HEMODYNAMICS: Left ventricular end-diastolic pressure is 15-16 mm. There is no significant gradient across the aortic valve. LEFT VENTRICULOGRAM: Is not performed. ANGIOGRAPHIC DATA: LEFT MAIN CORONARY ARTERY: Left main coronary artery appears calcified but is free of significant stenosis. Divides into left anterior descending coronary artery and circumflex coronary artery. The previously stented segment appears patent. There is a mild atherosclerotic plaque within the left main and the ostial LAD. Right coronary artery is a large dominant vessel that shows a focal area of 70% stenosis in the proximal portion. CONCLUSION: 1. Patent stent within the left main that extends into the proximal LAD. 2. Significant stenosis involving the proximal right coronary artery and the angiographic data was reviewed by Dr. Dina Mondragon, the on-call rawhide trimmer, who decided to proceed with the angioplasty of the right coronary artery. He did not think that we needed to do any of the left main stenting at this time. MMODL / IJN: [id number] /
[2019-12-19] MEDS: MAGNESIUM SULFATE-D5W PMX 1 GM in DEXTROSE/WATER 1 100ML.BAG IVPB SCH ×2 (09:43→10:53)
--- NOTE | 2019-12-19 09:43 | LTR ---
12/19/2019 RE: MONAE SANTANA Dear Dr. Schaefer: I performed cardiac catheterization on Monae Santana. A detailed catheterization note is enclosed for your records. In brief, Monae has patent stent within the left main and has a significant stenosis involving the proximal right coronary artery for which she will undergo angioplasty with stent placement. Thank you for giving me the privilege to participate in the care of this pleasant gentleman. Sincerely, Rainer Pat M.D. ELVI / DAVID: [id number] /
--- NOTE | 2019-12-19 09:43 | DS ---
DISCHARGE SUMMARY DATE OF ADMISSION: 12/18/2019 DATE OF DISCHARGE: 12/19/2019 PROCEDURES PERFORMED: 1. Left heart catheterization. 2. Angioplasty with stent of the proximal RCA. HOSPITAL COURSE: The patient was admitted to hospital electively for angioplasty. She underwent procedure uneventfully and had a fairly uneventful stay in the hospital. Condition at the time of discharge, comfortable at rest. Vital signs are stable. Chest exam reveals good air entry bilaterally. Heart exam reveals first and second heart sounds. No gallop. Exam of extremities did not reveal any edema. Groin is free of bleeding, bruit, hematoma. Foot pulses are intact. O2 saturation is 97%. LAB: Show that the hemoglobin is 12.6, potassium 2.8, creatinine is 0.87. The patient will have potassium supplement prior to discharge. DISCHARGE MEDICATIONS: Patient will go home on Januvia, Protonix, insulin, Invokana, Lopressor 50 b.i.d., Zaroxolyn, Lasix, Plavix, Glucophage will be held for 48 hours, Synthroid, diltiazem, Lipitor, Eliquis, Ventolin, K-Dur. FOLLOWUP: Patient will be followed up in my office in a week's time. MMODL / IJN: [id number] /
[2019-12-19] MEDS ORDERED: FUROSEMIDE 20 MG TAB PO SCH (12:00)
== END 2019-12-19 13:18 | disposition home or self-care (01) ==
LOC: CATHCVL 06:06 → 3NCARDOBS 12:32 → CATHCVL 12-19 13:18
PROVIDERS: ATTEND Internal Medicine Cardiovascular Disease
DX: I25.10 Atherosclerotic heart disease of native coronary artery without angina pectoris (principal); I25.5 Ischemic cardiomyopathy; I25.2 Old myocardial infarction; I48.20 Chronic atrial fibrillation, unspecified; I10 Essential (primary) hypertension; Z79.01 Long term (current) use of anticoagulants; Z79.02 Long term (current) use of antithrombotics/antiplatelets; Z79.4 Long term (current) use of insulin; Z79.890 Hormone replacement therapy; Z79.899 Other long term (current) drug therapy; Z95.5 Presence of coronary angioplasty implant and graft; Z88.8 Allergy status to other drugs, medicaments and biological substances; Z86.711 Personal history of pulmonary embolism
CPT/HCPCS: 93458; 80048; 83735; 84132; 85025; C9600; C1769 ×3; C1760; C1887; C1725; C1894; C1874; J2250; J2001; J3010; J3475; J0583; Q9967

== ENCOUNTER → 2021-04-18 | Outpatient (CLI) | payer MEDICARE ==
[2021-04-18 17:24] LABS: ALT 14 U/L (10-49); AST 21 U/L (14-35); Chol/HDL Ratio 2.83 Ratio; LDL Cholesterol,Calculated 75.8 mg/dL (0.0-131.0)
== END | disposition home or self-care (01) ==
LOC: LABWHC1 07:45
PROVIDERS: ATTEND Internal Medicine Cardiovascular Disease
DX: E78.2 Mixed hyperlipidemia (principal)
CPT/HCPCS: 36415; 80061; 84450; 84460

== ENCOUNTER 2023-07-04 18:50 | Inpatient (IN) | payer MEDICARE ==
--- NOTE | 2023-07-04 20:00 | ED ---
Weakness HPI - General Chief complaint: Weakness Stated complaint: Weakness, poss UTI w/history AFIB Time Seen by Provider: 07/04/23 18:55 Source: patient, EMS, RN notes reviewed Mode of arrival: EMS Limitations: no limitations - History of Present Illness Initial comments: 83-year-old male brought in by EMS with complaints of generalized weakness feeli ng tired decreased oral intake he is also had some blood in his urine as well as 2 days of burning with urination. He also has a history of atrial fibrillation per the paramedics the brought the patient and he had heart rates ranging from 108-138 atrial fibrillation. Patient also states he has had a cough and cannot sleep because of the cough he denies any overt fevers chills or sweats at this t sera. Complaint: generalized weakness - Related Data Allergies Allergy/AdvReac Type Severity Reaction Status Date / Time cortisone Allergy Swelling Verified 12/18/19 06:24 Review of Systems ROS Statement: Those systems with pertinent positive or pertinent negative responses have been documented in the HPI. ROS Other: All systems not noted in ROS Statement are negative. Past Medical History Past Medical History: Atrial Fibrillation, Coronary Artery Disease (CAD), Chest Pain / Angina, COPD, Diabetes Mellitus, Deep Vein Thrombosis (DVT), GERD/Reflux, GI Bleed, Hypertension, Thyroid Disorder Additional Past Medical History / Comment(s): upper and lower GI bld in 2014, diverticulosis, upper dental bridge Last Myocardial Infarction Date:: 02/2018 History of Any Multi-Drug Resistant Organisms: None Reported Past Surgical History: Back Surgery, Cholecystectomy, Heart Catheterization With Stent, Orthopedic Surgery Additional Past Surgical History / Comment(s): rotator cuff repair & WRIST SURGERY Past Anesthesia/Blood Transfusion Reactions: No Reported Reaction Date of Last Stent Placement:: 03/09/18 Past Psychological History: Anxiety Smoking Status: Former smoker Past Alcohol Use History: None Reported Past Drug Use History: None Reported - Past Family History Father History Unknown: Yes Additional Family Medical History / Comment(s): FAMILY HISTORY UNKNOWN.pt was placed in foster care at [address] living in 11 different families. General Exam Limitations: no limitations General appearance: alert, in no apparent distress Head exam: Present: atraumatic, normocephalic, normal inspection Eye exam: Present: normal appearance, PERRL, EOMI. Absent: scleral icterus, conjunctival injection, periorbital swelling ENT exam: Present: mucous membranes dry Neck exam: Present: normal inspection, full ROM, other (No stridor JVD or bruits). Absent: tenderness, meningismus, lymphadenopathy Respiratory exam: Present: decreased breath sounds. Absent: respiratory distress, wheezes, rales, rhonchi, stridor Cardiovascular Exam: Present: tachycardia, irregular rhythm, normal heart sounds. Absent: systolic murmur, diastolic murmur, rubs, gallop, clicks GI/Abdominal exam: Present: soft, normal bowel sounds. Absent: distended, tenderness, guarding, rebound, rigid Extremities exam: Present: full ROM, normal capillary refill, other (Examination of his right foot demonstrates no evidence of infectious process postsurgery.). Absent: tenderness, pedal edema, joint swelling, calf tenderness Back exam: Present: normal inspection Neurological exam: Present: alert, oriented X3, CN II-XII intact Psychiatric exam: Present: normal affect, normal mood Skin exam: Present: warm, dry, intact, normal color. Absent: rash Course Vital Signs 07/04/23 07/04/23 19:00 21:09 Temperature 98.7 F Pulse Rate 113 H 110 H Pulse Rate [ 115 H Pulse Oximetery ] Respiratory 20 18 Rate Blood Pressure 129/73 120/71 O2 Sat by Pulse 98 96 Oximetry Medical Decision Making - Medical Decision Making I did discuss the findings with the patient he has not had any chest pain he does have intermittent shortness of breath and palpitations. He has an elevated troponin 0.195 EKG showed atrial fibrillation but no definitive acute changes when compared to one dated 12/18/2019 I did discuss case with Dr. Roland patient be admitted with cardiology consultation. Was pt. sent in by a medical professional or institution (, PA, [facility], urgent care, hospital, or skilled nursing...) When possible be specific @ -No Did you speak to anyone other than the patient for history (EMS, parent, family, police, friend...)? What history was obtained from this source @ -Paramedics upon arrival Did you review nursing and triage notes (agree or disagree)? Why? @ -I reviewed and agree with nursing and triage notes Were old charts reviewed (outside hosp., previous admission, EMS record, old EKG, old radiological studies, urgent care reports/EKG's, skilled nursing records)? Report findings @ -Old charts were reviewed Differential Diagnosis (chest pain, altered mental status, abdominal pain women, abdominal pain men, vaginal bleeding, weakness, fever, dyspnea, syncope, headache, dizziness, GI bleed, back pain, seizure, CVA, palpatations, mental health, musculoskeletal)? @ -Rapid atrial fibrillation, weakness EKG interpreted by me (3pts min.). @ -As above EKG interpreted by me atrial fibrillation with a rapid ventricular response rate of 107 QRS ration 141 QT/QTc 340/407 left axis deviation right bundle branch block pattern unifocal PVC noted this was compared to an EKG dated 12/18/2019 X-rays interpreted by me (1pt min.). @ -Evidence of CHF with pulmonary vascular congestion this was interpreted by me CT interpreted by me (1pt min.). @ -None done U/S interpreted by me (1pt. min.). @ -None done What testing was considered but not performed or refused? (CT, X-rays, U/S, labs)? Why? @ -None What meds were considered but not given or refused? Why? @ -None Did you discuss the management of the patient with other professionals (professionals i.e. , PA, [facility], lab, RT, psych nurse, high school social science teacher, web design intern, teacher, police liaison officer, immigration case manager)? Give summary @ -Dr. Sanchez Was smoking cessation discussed for >3mins.? @ -No Was critical care preformed (if so, how long)? @ -No Were there social determinants of health that impacted care today? How? (Homelessness, low income, unemployed, alcoholism, drug addiction, transportation, low edu. Level, literacy, decrease access to med. care, alf, rehab)? @ -No Was there de-escalation of care discussed even if they declined (Discuss DNR or withdrawal of care, Hospice)? DNR status @ -No What co-morbidities impacted this encounter? (DM, HTN, Smoking, COPD, CAD, Cancer, CVA, ARF, Chemo, Hep., AIDS, mental health diagnosis, sleep apnea, morbid obesity)? @ -Atrial fibrillation coronary artery disease COPD diabetes hypertension thyroid disease history of GI bleed in the past Was patient admitted / discharged? Hospital course, mention meds given and route, prescriptions, significant lab abnormalities, going to OR and other pertinent info. @ -Hospital course Undiagnosed new problem with uncertain prognosis? @ -Elevated troponin with CHF Drug Therapy requiring intensive monitoring for toxicity (Heparin, Nitro, Insulin, Cardizem)? @ -No Were any procedures done? @ -No Diagnosis/symptom? @ -Rapid atrial fibrillation, CHF, elevated troponin, weakness, acute NSTEMI Acute, or Chronic, or Acute on Chronic? @ -Cute Uncomplicated (without systemic symptoms) or Complicated (systemic symptoms)? @ -Complicated Side effects of treatment? @ -No Exacerbation, Progression, or Severe Exacerbation? @ -Exacerbation Poses a threat to life or bodily function? How? (Chest pain, USA, VT, pneumonia, PE, COPD, DKA, ARF, appy, cholecystitis, CVA, Diverticulitis, Homicidal, Suicidal, threat to staff... and all critical care pts) @ -Potential, rapid atrial fibrillation, CHF - Lab Data Result diagrams: 07/04/23 19:31 07/04/23 19:31 Lab Results 07/04/23 07/04/23 07/04/23 Range/Units 19:31 19:31 19:31 WBC 8.2 (3.8-10.6) k/uL RBC 3.60 L (4.30-5.90) m/uL Hgb 11.2 L (13.0-17.5) gm/dL Hct 34.5 L (39.0-53.0) % MCV 95.7 (80.0-100.0) fL MCH 31.1 (25.0-35.0) pg MCHC 32.5 (31.0-37.0) g/dL RDW 17.7 H (11.5-15.5) % Plt Count 182 (150-450) k/uL MPV 7.6 Neutrophils % 69 % Lymphocytes % 18 % Monocytes % 9 % Eosinophils % 3 % Basophils % 1 % Neutrophils # 5.6 (1.3-7.7) k/uL Lymphocytes # 1.5 (1.0-4.8) k/uL Monocytes # 0.7 (0-1.0) k/uL Eosinophils # 0.2 (0-0.7) k/uL Basophils # 0.0 (0-0.2) k/uL Hypochromasia Slight Anisocytosis Slight Macrocytosis Slight Sodium 135 L (137-145) mmol/L Potassium 3.9 (3.5-5.1) mmol/L Chloride 105 (98-107) mmol/L Carbon Dioxide 23 (22-30) mmol/L Anion Gap 7 mmol/L BUN 18 (9-20) mg/dL Creatinine 1.27 H (0.66-1.25) mg/dL Est GFR (CKD-EPI)AfAm 60 (>60 ml/min/1.73 sqM) Est GFR (CKD-EPI)NonAf 52 (>60 ml/min/1.73 sqM) Glucose 132 H (74-99) mg/dL Plasma Lactic Acid Jason 1.0 (0.7-2.0) mmol/L Calcium 9.7 (8.4-10.2) mg/dL Magnesium 1.7 (1.6-2.3) mg/dL Total Bilirubin 1.1 (0.2-1.3) mg/dL AST 29 (17-59) U/L ALT 15 (4-49) U/L Alkaline Phosphatase 93 (38-126) U/L Troponin I (0.000-0.034) ng/mL Total Protein 6.4 (6.3-8.2) g/dL Albumin 3.1 L (3.5-5.0) g/dL Influenza Type A (PCR) (Not Detectd) Influenza Type B (PCR) (Not Detectd) RSV (PCR) (Not Detectd) SARS-CoV-2 (PCR) (Not Detectd) 07/04/23 07/04/23 Range/Units 19:31 19:31 WBC (3.8-10.6) k/uL RBC (4.30-5.90) m/uL Hgb (13.0-17.5) gm/dL Hct (39.0-53.0) % MCV (80.0-100.0) fL MCH (25.0-35.0) pg MCHC (31.0-37.0) g/dL RDW (11.5-15.5) % Plt Count (150-450) k/uL MPV Neutrophils % % Lymphocytes % % Monocytes % % Eosinophils % % Basophils % % Neutrophils # (1.3-7.7) k/uL Lymphocytes # (1.0-4.8) k/uL Monocytes # (0-1.0) k/uL Eosinophils # (0-0.7) k/uL Basophils # (0-0.2) k/uL Hypochromasia Anisocytosis Macrocytosis Sodium (137-145) mmol/L Potassium (3.5-5.1) mmol/L Chloride (98-107) mmol/L Carbon Dioxide (22-30) mmol/L Anion Gap mmol/L BUN (9-20) mg/dL Creatinine (0.66-1.25) mg/dL Est GFR (CKD-EPI)AfAm (>60 ml/min/1.73 sqM) Est GFR (CKD-EPI)NonAf (>60 ml/min/1.73 sqM) Glucose (74-99) mg/dL Plasma Lactic Acid Jason (0.7-2.0) mmol/L Calcium (8.4-10.2) mg/dL Magnesium (1.6-2.3) mg/dL Total Bilirubin (0.2-1.3) mg/dL AST (17-59) U/L ALT (4-49) U/L Alkaline Phosphatase (38-126) U/L Troponin I 0.195 H* (0.000-0.034) ng/mL Total Protein (6.3-8.2) g/dL Albumin (3.5-5.0) g/dL Influenza Type A (PCR) Not Detected (Not Detectd) Influenza Type B (PCR) Not Detected (Not Detectd) RSV (PCR) Not Detected (Not Detectd) SARS-CoV-2 (PCR) Not Detected (Not Detectd) - EKG Data EKG Comments: EKG interpreted by me atrial fibrillation with a rapid trickle response rate of 107 QRS 141 QT/QTc 340/407 left axis deviation right bundle branch block pattern unifocal PVC noted - Radiology Data Interpreted by me: Chest x-ray interpreted by me evidence of congestive changes with bilateral small pleural effusions. Disposition Clinical Impression: Rapid atrial fibrillation, Elevated troponin, Congestive heart failure, Weakness, NSTEMI (non-ST elevated myocardial infarction) Disposition: ADMITTED IP TO THIS [facility] Condition: Fair Referrals: Ronnie Sharma MD [Primary Care Provider] - 1-2 days Time of Disposition: 23:06 Decision Date: 07/04/23 Decision Time: 23:06
[2023-07-04 20:11] LABS: Anisocytosis Slight; Basophils % (A) 1 %; Eosinophils # (A) 0.2 k/uL (0-0.7); Eosinophils % (A) 3 %; HCT 34.5 % (39.0-53.0); HGB 11.2 gm/dL (13.0-17.5); Hypochromasia Slight; Lymphocytes # (A) 1.5 k/uL (1.0-4.8); Lymphocytes % (A) 18 %; MCH 31.1 pg (25.0-35.0); MCHC 32.5 g/dL (31.0-37.0); MCV 95.7 fL (80.0-100.0); Macrocytosis Slight; Mean Platelet Volume 7.6; Monocytes # (A) 0.7 k/uL (0-1.0); Monocytes % (A) 9 %; Neutrophils # (A) 5.6 k/uL (1.3-7.7); Neutrophils % (A) 69 %; Platelet Count 182 k/uL (150-450); RDW 17.7 % (11.5-15.5); WBC 8.2 k/uL (3.8-10.6)
[2023-07-04 20:31] LABS: ALT 15 U/L (4-49); AST 29 U/L (17-59); African American GFR (CKD) 60 (>60 ml/min/1.73 sqM); Albumin 3.1 g/dL (3.5-5.0); Alkaline Phosphatase 93 U/L (38-126); Anion Gap 7 mmol/L; Blood Urea Nitrogen 18 mg/dL (9-20); Calcium 9.7 mg/dL (8.4-10.2); Carbon Dioxide 23 mmol/L (22-30); Chloride 105 mmol/L (98-107); Glucose 132 mg/dL (74-99); Magnesium 1.7 mg/dL (1.6-2.3); Non-African American GFR(CKD) 52 (>60 ml/min/1.73 sqM); Sodium 135 mmol/L (137-145); Total Bilirubin 1.1 mg/dL (0.2-1.3); Total Protein 6.4 g/dL (6.3-8.2)
--- NOTE | 2023-07-04 20:51 | XR ---
EXAMINATION TYPE: XR chest 2V DATE OF EXAM: 07/04/2023 8:09 PM CLINICAL INDICATION:Male, 83 years old with history of Weakness; [facility] COMPARISON: 06/14/2023 and before TECHNIQUE: XR chest 2V. Frontal and lateral views of the chest.. FINDINGS: Lines/Tubes/Devices: EKG leads overlie the chest. No indwelling lines are seen. Heart/mediastinum: Heart appears enlarged. Atherosclerotic calcifications of the aorta. Pulmonary vascularity: Pulmonary vascular congestion. Increased interstitial markings can be seen wit h edema or pneumonitis. An element of chronic change is possible. Lungs/Pleura: Moderate bilateral pleural effusions suggested. Hazy opacities over the mid to lower lalito ngs bilaterally likely edema and atelectasis. No visualized pneumothorax. Musculoskeletal: No acute osseous abnormality demonstrated in the limits of the exam. Degenerative c hanges of both shoulders with evidence of chronic rotator cuff disease. Postoperative changes with bi lateral humeral head surgical anchors present. Mild/moderate degenerative changes of the spine. Other findings: None. IMPRESSION: Cardiomegaly, pulmonary vascular congestion and bilateral pleural effusions suggestive of moderate CH F.
[2023-07-04 21:06] LABS: Potassium 3.9 mmol/L (3.5-5.1)
[2023-07-04] MEDS ORDERED: NITROGLYCERIN SL TABS 0.4 MG TAB SUBLINGUAL PRN (23:07)
[2023-07-05 00:11] LABS: Appearance,Urine Clear (Clear); Bacteria,Urine Rare /hpf; Bilirubin,Urine Negative (Negative); Blood,Urine Negative (Negative); Color,Urine Yellow; Glucose,Urine (UA) 4+ (Negative); Hyaline Casts,Urine 1 /lpf (0-2); Ketones,Urine Negative (Negative); Leukocyte Esterase,Urine Small (Negative); Mucus,Urine Rare /hpf; Nitrite,Urine Negative (Negative); Protein,Urine Trace (Negative); RBC,Urine 1 /hpf (0-5); Specific Gravity,Urine 1.018 (1.001-1.035); Squamous Epithelial Cell,Urine 1 /hpf (0-4); Urobilinogen,Urine <2.0 mg/dL (<2.0); WBC,Urine 5 /hpf (0-5)
[2023-07-05] MEDS: FUROSEMIDE 10 MG/ML 4 ML VIAL IV STA (00:20)
[2023-07-05] MEDS: ASPIRIN 81 MG PO STA (00:20)
[2023-07-05] MEDS: HEPARIN SODIUM 1,000 UN/ML (10ML VL) IV ONE (00:20)
[2023-07-05] MEDS: HEPARIN SOD,PORK IN 0.45% NACL 25,000 UNIT in 0.45% NACL 1 250ML.BAG IV SCH (00:21)
--- NOTE | 2023-07-05 07:24 | P.HPIM ---
History of Present Illness This is a pleasant 83 years old male with past medical history of COPD, atrial fibrillation , chronic kidney disease stage III, diabetes mellitus, hypertension, coronary artery disease, history of pulmonary embolism patient presents because of palpitation. Denies chest pain. Denies shortness of breath however patient was noticed little bit tachypneic and was breathing difficulties while he was talking. He denies abdominal pain vomiting or diarrhea. He has dry cough. He denies dysuria or urgency. No headaches or dizziness weakness or numbness. At baseline and he uses a walker He is not on home oxygen He denies smoking alcohol or illicit drugs He is hemodynamically stable. His tachycardic and tachypneic with heart rate 116, respiratory 24, currently he is 98% on 3 L oxygen via nasal cannula CBC is unremarkable except for mild anemia with hemoglobin 11.2. BMP is unremarkable with creatinine at baseline of 1.28. Baseline 1.2-1.5. LFTs unremarkable Urine analysis is unremarkable except for glucosuria. Troponin is elevated 0.1, 0.23, 0.21. ProBNP 52357 Influenza A and type B, RSV, SARS (coronavirus) are and detected EKG showing atrial flutter with a rate of 107 Chest x-ray showing evidence of CHF Review of Systems Review of systems CONSTITUTIONAL: No fever, no malaise, no fatigue. HEENT: No recent visual problems or hearing problems. Denied any sore throat. CARDIOVASCULAR: No orthopnea, PND, no palpitations, no syncope. PULMONARY: No chest wall tenderness, no hemoptysis. GASTROINTESTINAL: No diarrhea, no nausea, no vomiting, no abdominal pain. Normoactive bowel sounds. NEUROLOGICAL: No headaches, no weakness, no numbness. HEMATOLOGICAL: Denies any bleeding or petechiae. GENITOURINARY: Denies any burning micturition, frequency, or urgency. MUSCULOSKELETAL/RHEUMATOLOGICAL: Denies any joint pain, swelling, or any muscle pain. ENDOCRINE: Denies any polyuria or polydipsia. Past Medical History Past Medical History: Atrial Fibrillation, Coronary Artery Disease (CAD), Chest Pain / Angina, COPD, Diabetes Mellitus, Deep Vein Thrombosis (DVT), GERD/Reflux, GI Bleed, Hypertension, Thyroid Disorder Additional Past Medical History / Comment(s): upper and lower GI bld in 2014, diverticulosis, upper dental bridge Last Myocardial Infarction Date:: 02/2018 History of Any Multi-Drug Resistant Organisms: None Reported Past Surgical History: Back Surgery, Cholecystectomy, Heart Catheterization With Stent, Orthopedic Surgery Additional Past Surgical History / Comment(s): rotator cuff repair & WRIST SURGERY Past Anesthesia/Blood Transfusion Reactions: No Reported Reaction Date of Last Stent Placement:: 03/09/18 Past Psychological History: Anxiety Smoking Status: Former smoker Past Alcohol Use History: None Reported Past Drug Use History: None Reported - Past Family History Father History Unknown: Yes Additional Family Medical History / Comment(s): FAMILY HISTORY UNKNOWN.pt was placed in foster care at [address] living in 11 different families. Medications and Allergies Allergies Allergy/AdvReac Type Severity Reaction Status Date / Time cortisone Allergy Swelling Verified 12/18/19 06:24 Physical Exam Vitals: Vital Signs Temp Pulse Pulse Resp BP Pulse Ox 07/05/23 05:08 115 H 23 128/84 98 07/05/23 04:35 104 H 26 H 98/74 96 07/05/23 03:00 112 H 24 132/85 99 07/05/23 02:11 116 H 24 126/64 98 07/05/23 01:08 108 H 23 124/71 99 07/05/23 00:11 106 H 22 130/67 98 07/04/23 22:00 108 H 16 111/85 97 07/04/23 21:09 110 H 18 120/71 96 07/04/23 19:00 98.7 F 113 H 115 H 20 129/73 98 Intake and Output 07/04/23 07/04/23 07/05/23 14:59 22:59 06:59 Intake Total 35.566 Balance 35.566 Intake: Intake, IV Titration 35.566 Amount Heparin Sod,Pork in 0.45% 35.566 NaCl 25,000 unit In 0.45 % NaCl 1 250ml.bag @ 12 UNITS/KG/HR 8.818 mls/hr IV .Q24H [facility] Rx#: [id number] Other: Weight 73.482 kg GENERAL: The patient is alert and oriented x3, not in any acute distress. Well developed, well nourished. HEENT: Pupils are round and equally reacting to light. EOMI. No scleral icterus. No conjunctival pallor. Normocephalic, atraumatic. No pharyngeal erythema. No thyromegaly. CARDIOVASCULAR: S1 and S2 present. No murmurs, rubs, or gallops. -PULMONARY: Chest is clear to auscultation, no wheezing , mild bilateral basal crackles. ABDOMEN: Soft, nontender, nondistended, normoactive bowel sounds. No palpable organomegaly. MUSCULOSKELETAL: No joint swelling or deformity. -EXTREMITIES: No cyanosis, clubbing, or pedal edema. Status post right big toe amputation, wound is healed with a dry scab, no evidence of cellulitis NEUROLOGICAL: Gross neurological examination did not reveal any focal deficits. SKIN: No rashes. no petechiae. Results CBC & Chem 7: 07/04/23 19:31 07/04/23 19:31 Labs: Abnormal Lab Results - Last 24 Hours (Table) 07/04/23 07/04/23 07/04/23 Range/Units 19:31 19:31 19:31 RBC 3.60 L (4.30-5.90) m/uL Hgb 11.2 L (13.0-17.5) gm/dL Hct 34.5 L (39.0-53.0) % RDW 17.7 H (11.5-15.5) % APTT (22.0-30.0) sec Sodium 135 L (137-145) mmol/L Creatinine 1.27 H (0.66-1.25) mg/dL Glucose 132 H (74-99) mg/dL Troponin I 0.195 H* (0.000-0.034) ng/mL Albumin 3.1 L (3.5-5.0) g/dL Urine Protein (Negative) Urine Glucose (UA) (Negative) Ur Leukocyte Esterase (Negative) Urine Bacteria (None) /hpf Urine Mucus (None) /hpf 07/04/23 07/05/23 07/05/23 Range/Units 23:55 00:36 03:23 RBC (4.30-5.90) m/uL Hgb (13.0-17.5) gm/dL Hct (39.0-53.0) % RDW (11.5-15.5) % APTT (22.0-30.0) sec Sodium (137-145) mmol/L Creatinine (0.66-1.25) mg/dL Glucose (74-99) mg/dL Troponin I 0.239 H* 0.216 H* (0.000-0.034) ng/mL Albumin (3.5-5.0) g/dL Urine Protein Trace H (Negative) Urine Glucose (UA) 4+ H (Negative) Ur Leukocyte Esterase Small H (Negative) Urine Bacteria Rare H (None) /hpf Urine Mucus Rare H (None) /hpf 07/05/23 Range/Units 03:23 RBC (4.30-5.90) m/uL Hgb (13.0-17.5) gm/dL Hct (39.0-53.0) % RDW (11.5-15.5) % APTT 69.9 H (22.0-30.0) sec Sodium (137-145) mmol/L Creatinine (0.66-1.25) mg/dL Glucose (74-99) mg/dL Troponin I (0.000-0.034) ng/mL Albumin (3.5-5.0) g/dL Urine Protein (Negative) Urine Glucose (UA) (Negative) Ur Leukocyte Esterase (Negative) Urine Bacteria (None) /hpf Urine Mucus (None) /hpf Assessment and Plan Assessment: A. fib and RVR Acute on chronic systolic CHF Elevated troponin most likely secondary to above, Acute hypoxic respiratory failure Chronic kidney disease stage III COPD no acute exacerbation Plan: Continue with IV Lasix 40 mg twice daily Continue with heparin drip Continue with aspirin 325 mg Cardiology consult Labs and medication were reviewed.. Continue same treatment. Continue with symptomatic treatment. Resume home medication. Monitor labs and vitals. DVT and GI prophylaxis. Further recommendations as per clinical course of the patient DVT prophylaxis: Subcutaneous heparin GI Prophylaxis: Pepcid PT/OT: Pending Prognosis is guarded
--- NOTE | 2023-07-05 08:51 | P.CRDCN ---
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 Patient follows in the office with Dr. Pat. We have been asked to see the patient in consultation for CHF, elevated troponins, and atrial fibrillation. Patient examined at the bedside in the emergency room. Patient states he presented to the hospital with a chief complaint of palpitations and shortness of breath. He states he has been present for the past 4 to 5 days. The patient was found to be in A-fib with RVR upon arrival to the hospital. He remains in atrial fibrillation with a heart rate around 120 at the time of examination. The patient was also started on IV Lasix secondary to CHF exacerbation. The patient is on 2 L nasal cannula maintaining oxygen saturations greater than 92%. The patient denies any chest pain or pressure. He reports improvement in his shortness of breath. He reports increased swelling to his left lower extremity and pain which he states has been present since his back surgery many years ago. The patient also reports he was hospitalized at the beginning of this year at [facility] due to congestive heart failure. DIAGNOSTICS: - EKG reveals atrial fibrillation with right bundle branch block. Heart rate 107. - Chest xray cardiomegaly, pulmonary vascular congestion and bilateral pleural effusions suggestive of moderate CHF - Laboratory data: WBC 8.2. Hemoglobin 11.2. Platelet count 182. Sodium 135. Potassium 3.9. BUN 18. Creatinine 1.27. Lactic acid 1.0. proBNP 16,400. Troponin 0.195. 0.239. 0.216. - Current home cardiac medications: None - Most recent echocardiogram obtained in October 2021 revealing ejection fraction 30 to 35%, global LV hypokinesis, moderate MR, moderate TR, severe pulmonary hypertension - Patient underwent Lexiscan stress test in July 2022 revealing partially reversible inferior wall defect with fixed apical perfusion defect - Cardiac catheterization history: November 2019 revealing patent stent within the left main that extends into the proximal LAD. Significant stenosis involving the proximal right coronary artery. The patient underwent stenting of the proximal RCA with a drug-eluting stent by Dr. Mondragon. REVIEW OF SYSTEMS: At the time of my exam: CONSTITUTIONAL: Denies fever or chills. HEENT: Denies blurred vision, vision changes, or eye pain. Denies hemoptysis CARDIOVASCULAR: Denies chest pain. Denies orthopnea. Denies PND. Reports palpitations RESPIRATORY: Reports shortness of breath. GASTROINTESTINAL: Denies abdominal pain. Denies nausea or vomiting. HEMATOLOGIC: Denies bleeding disorders. GENITOURINARY: Denies any blood in urine. SKIN: Denies pruitis. Denies rash. PHYSICAL EXAM: VITAL SIGNS: Reviewed. GENERAL: Well-developed in no acute distress. HEENT: Head is normocephalic. Pupils are equal, round. Sclerae anicteric. Mucous membranes of the mouth are moist. Neck supple. + JVD LUNGS: Respirations even and unlabored. Lungs diminished with bibasilar crackles HEART: Tachycardic. Irregular rate and rhythm. S1 and S2 heard. Systolic murmur noted. ABDOMEN: Soft. Nondistended. Nontender. EXTREMITIES: Normal range of motion. No clubbing or cyanosis. Peripheral pulses intact. Left lower extremity edema noted. NEUROLOGIC: Awake and alert. Oriented but slightly confused at times. ASSESSMENT: Generalized weakness Acute on chronic heart failure with reduced EF 30 to 35%,, proBNP 16,400 NSTEMI versus type II [place] Permanent atrial fibrillation with RVR Ischemic cardiomyopathy, ejection fraction 30 to 35% Coronary artery disease with previous stenting Hypertension Hyperlipidemia Peripheral arterial disease with previous amputation of toes on the right foot Valvular heart disease including moderate MR and TR Severe pulmonary hypertension PLAN: Obtain 2D echo to assess cardiac structure and function Awaiting verification of patient's home medication list Continue IV Heparin Begin metoprolol tartrate 25 mg twice a day Continue telemetry monitoring Continue IV Lasix 40 mg twice a day Daily weights, accurate intake and output, and monitoring of kidney function Possible heart cath pending patient course Further recommendations pending patient course Nurse practitioner note has been reviewed by physician. Signing provider agrees with the documented findings, assessment, and plan of care documented by PROJECT ASST as a scribe. Past Medical History Past Medical History: Atrial Fibrillation, Coronary Artery Disease (CAD), Chest Pain / Angina, COPD, Diabetes Mellitus, Deep Vein Thrombosis (DVT), GERD/Reflux, GI Bleed, Hypertension, Thyroid Disorder Additional Past Medical History / Comment(s): upper and lower GI bld in 2014, diverticulosis, upper dental bridge Last Myocardial Infarction Date:: 02/2018 History of Any Multi-Drug Resistant Organisms: None Reported Past Surgical History: Back Surgery, Cholecystectomy, Heart Catheterization With Stent, Orthopedic Surgery Additional Past Surgical History / Comment(s): rotator cuff repair & WRIST SURGERY Past Anesthesia/Blood Transfusion Reactions: No Reported Reaction Date of Last Stent Placement:: 03/09/18 Past Psychological History: Anxiety Smoking Status: Former smoker Past Alcohol Use History: None Reported Past Drug Use History: None Reported - Past Family History Father History Unknown: Yes Additional Family Medical History / Comment(s): FAMILY HISTORY UNKNOWN.pt was placed in foster care at [address] living in 11 different families. Medications and Allergies Home Medications Medication Instructions Recorded Confirmed Type Apixaban [Eliquis] 2.5 mg PO BID 07/05/23 07/05/23 History Aspirin 81 mg PO DAILY 07/05/23 07/05/23 History Atorvastatin [Lipitor] 80 mg PO DAILY 07/05/23 07/05/23 History Budesonide [Pulmicort] 0.5 mg INHALATION RT-BID 07/05/23 07/05/23 History Clopidogrel [Plavix] 75 mg PO DAILY 07/05/23 07/05/23 History Cyclobenzaprine [Flexeril] 5 mg PO BID PRN 07/05/23 07/05/23 History Digoxin [Digitek] 125 mcg PO Q2D 07/05/23 07/05/23 History Empagliflozin [Jardiance] 10 mg PO DAILY 07/05/23 07/05/23 History Escitalopram [Lexapro] 20 mg PO DAILY 07/05/23 07/05/23 History Folic Acid 1 mg PO DAILY 07/05/23 07/05/23 History Insulin Glargine,Hum.rec.anlog 26 units SQ DAILY 07/05/23 07/05/23 History [Toujeo Max Solostar] Ipratropium-Albuterol Nebulize 3 ml INHALATION RT-QID 07/05/23 07/05/23 History [Duoneb 0.5 mg-3 mg/3 ml Soln] Levothyroxine Sodium [Synthroid] 150 mcg PO DAILY 07/05/23 07/05/23 History Linagliptin [Tradjenta] 5 mg PO DAILY 07/05/23 07/05/23 History Metoprolol Tartrate [Lopressor] 25 mg PO BID 07/05/23 07/05/23 History Montelukast [Singulair] 10 mg PO HS 07/05/23 07/05/23 History Multivitamins, Thera [Multivitamin 1 tab PO DAILY 07/05/23 07/05/23 History (formulary)] Pantoprazole [Protonix] 40 mg PO DAILY 07/05/23 07/05/23 History Potassium Chloride [Klor-Con M20] 20 meq PO DAILY 07/05/23 07/05/23 History Tamsulosin HCl [Flomax] 0.4 mg PO DAILY 07/05/23 07/05/23 History Torsemide [Demadex] 20 mg PO DAILY 07/05/23 07/05/23 History calcitrioL [Rocaltrol] 0.5 mcg PO DAILY 07/05/23 07/05/23 History Allergies Allergy/AdvReac Type Severity Reaction Status Date / Time cortisone Allergy Swelling Verified 12/18/19 06:24 Physical Exam Vitals: Vital Signs Temp Pulse Pulse Resp BP Pulse Ox 07/05/23 06:10 116 H 24 127/71 98 07/05/23 05:08 115 H 23 128/84 98 07/05/23 04:35 104 H 26 H 98/74 96 07/05/23 03:00 112 H 24 132/85 99 07/05/23 02:11 116 H 24 126/64 98 07/05/23 01:08 108 H 23 124/71 99 07/05/23 00:11 106 H 22 130/67 98 07/04/23 22:00 108 H 16 111/85 97 07/04/23 21:09 110 H 18 120/71 96 07/04/23 19:00 98.7 F 113 H 115 H 20 129/73 98 Intake and Output 07/04/23 07/05/23 07/05/23 22:59 06:59 14:59 Intake Total 35.566 Balance 35.566 Intake: Intake, IV Titration 35.566 Amount Heparin Sod,Pork in 0.45% 35.566 NaCl 25,000 unit In 0.45 % NaCl 1 250ml.bag @ 12 UNITS/KG/HR 8.818 mls/hr IV .Q24H [facility] Rx#: [id number] Other: Weight 73.482 kg Results 07/04/23 19:31 07/05/23 09:09 Cardiac Enzymes 07/04/23 07/04/23 07/05/23 Range/Units 19:31 19:31 00:36 AST 29 (17-59) U/L Troponin I 0.195 H* 0.239 H* (0.000-0.034) ng/mL 07/05/23 Range/Units 03:23 AST (17-59) U/L Troponin I 0.216 H* (0.000-0.034) ng/mL Coagulation 07/05/23 Range/Units 03:23 APTT 69.9 H (22.0-30.0) sec CBC 07/04/23 Range/Units 19:31 WBC 8.2 (3.8-10.6) k/uL RBC 3.60 L (4.30-5.90) m/uL Hgb 11.2 L (13.0-17.5) gm/dL Hct 34.5 L (39.0-53.0) % Plt Count 182 (150-450) k/uL Comprehensive Metabolic Panel 07/04/23 Range/Units 19:31 Sodium 135 L (137-145) mmol/L Potassium 3.9 (3.5-5.1) mmol/L Chloride 105 (98-107) mmol/L Carbon Dioxide 23 (22-30) mmol/L BUN 18 (9-20) mg/dL Creatinine 1.27 H (0.66-1.25) mg/dL Glucose 132 H (74-99) mg/dL Calcium 9.7 (8.4-10.2) mg/dL AST 29 (17-59) U/L ALT 15 (4-49) U/L Alkaline Phosphatase 93 (38-126) U/L Total Protein 6.4 (6.3-8.2) g/dL Albumin 3.1 L (3.5-5.0) g/dL Current Medications Generic Name Dose Route Start Last Admin Trade Name Freq PRN Reason Stop Dose Admin Aspirin 325 mg 07/05/23 09:00 Aspirin 325 Mg Tab PO DAILY [facility] Furosemide 40 mg 07/05/23 09:00 Furosemide 10 Mg/Ml 2 Ml Vial IV Q12HR [facility]AZ Heparin Sodium/Sodium Chloride 250 mls @ 8.818 mls/hr 07/04/23 23:15 07/05/23 04:23 25,000 unit/ Sodium Chloride IV 9.28 units/kg/hr .Q24H [facility] 6.818 mls/hr Titration Protocol 12 UNITS/KG/HR Nitroglycerin 0.4 mg 07/04/23 23:07 Nitroglycerin Sl Tabs 0.4 Mg Tab SUBLINGUAL Q5M PRN Chest Pain Intake and Output 07/04/23 07/05/23 07/05/23 22:59 06:59 14:59 Intake Total 35.566 Balance 35.566 Intake: Intake, IV Titration 35.566 Amount Heparin Sod,Pork in 0.45% 35.566 NaCl 25,000 unit In 0.45 % NaCl 1 250ml.bag @ 12 UNITS/KG/HR 8.818 mls/hr IV .Q24H [facility] Rx#: [id number] Other: Weight 73.482 kg 07/04/23 19:31 07/04/23 19:31
[2023-07-05] MEDS: METOPROLOL TARTRATE 25 MG TAB PO SCH ×2 (08:56→15:50)
[2023-07-05] MEDS: FUROSEMIDE 10 MG/ML 2 ML VIAL IV SCH (08:56)
[2023-07-05] MEDS ORDERED: ASPIRIN 325 MG TAB PO SCH (09:00)
[2023-07-05] MEDS ORDERED: FUROSEMIDE 10 MG/ML 2 ML VIAL IV SCH (09:00)
[2023-07-05 09:10] LABS: Chol/HDL Ratio 1.81 Ratio; LDL Cholesterol,Calculated 30.3 mg/dL (0.0-131.0); VLDL Calculation 9.92 mg/dL (5.00-40.00)
[2023-07-05 09:50] LABS: African American GFR (CKD) 59 (>60 ml/min/1.73 sqM); Anion Gap 6 mmol/L; Blood Urea Nitrogen 19 mg/dL (9-20); Calcium 9.9 mg/dL (8.4-10.2); Carbon Dioxide 25 mmol/L (22-30); Chloride 104 mmol/L (98-107); Glucose 104 mg/dL (74-99); Non-African American GFR(CKD) 51 (>60 ml/min/1.73 sqM); Potassium 3.6 mmol/L (3.5-5.1); Sodium 135 mmol/L (137-145)
[2023-07-05] MEDS ORDERED: CYCLOBENZAPRINE 5 MG TAB PO PRN (10:30)
[2023-07-05] MEDS ORDERED: DEXTROSE 50% SYRINGE 50 ML IVP PRN ×2 (10:38)
[2023-07-05] MEDS: HEPARIN SODIUM 1,000 UN/ML (10ML VL) IV PRN (10:45)
[2023-07-05 11:02] LABS: Glucose,Whole Blood 107 mg/dL (70-110)
[2023-07-05] MEDS: LEVOTHYROXINE 75 MCG TAB PO SCH (11:06)
[2023-07-05] MEDS: LINAGLIPTIN 5 MG TABLET PO SCH (11:06)
[2023-07-05] MEDS: DIGOXIN 125 MCG TAB PO SCH (11:06)
[2023-07-05] MEDS: LOSARTAN 25 MG TAB PO SCH (11:08)
[2023-07-05] MEDS: INSULIN ASPART (NovoLOG) 100 UNIT/ML VIAL SQ SCH (11:09)
[2023-07-05 11:17] LABS: T4, Free (Free Thyroxine) 3.88 ng/dL (0.78-2.19)
[2023-07-05 16:54] LABS: Glucose,Whole Blood 128 mg/dL (70-110)
[2023-07-05 19:58] LABS: Glucose,Whole Blood 166 mg/dL (70-110)
[2023-07-05] MEDS: MONTELUKAST 10 MG TAB PO SCH (20:17)
[2023-07-05] MEDS ORDERED: ATORVASTATIN 40 MG TAB PO SCH (21:00)
[2023-07-05] MEDS: BUDESONIDE 0.5 MG/2 ML NEBU INHALATION SCH (21:39)
[2023-07-06 06:14] LABS: Glucose,Whole Blood 113 mg/dL (70-110)
[2023-07-06] MEDS: PANTOPRAZOLE 40 MG TABLET PO SCH (06:39)
[2023-07-06] MEDS: LEVOTHYROXINE 100 MCG TAB PO SCH (06:39)
[2023-07-06] MEDS ORDERED: INSULIN DETEMIR (LEVEMIR) 100 UNIT/ML SYR SQ SCH ×2 (07:00)
--- NOTE | 2023-07-06 08:00 | P.PN ---
Subjective This is a pleasant 83 years old male with past medical history of COPD, atrial fibrillation , chronic kidney disease stage III, diabetes mellitus, h ypertension, coronary artery disease, history of pulmonary embolism patient presents because of palpitation. Denies chest pain. Denies shortness of breath however patient was noticed little bit tachypneic and was breathing difficulties while he was talking. He denies abdominal pain vomiting or di arrhea. He has dry cough. He denies dysuria or urgency. No headaches or dizziness weakness or numbness. At baseline and he uses a walker He is not on home oxygen He denies smoking alcohol or illicit drugs He is hemodynamically stable. His tachycardic and tachypneic with heart rate 116, respiratory 24, currently he is 98% on 3 L oxygen via nasal cannula CBC is unremarkable except for mild anemia with hemoglobin 11.2. BMP is unremarkable with creatinine at baseline of 1.28. Baseline 1.2-1.5. LFTs unremarkable Urine analysis is unremarkable except for glucosuria. Troponin is elevated 0.1, 0.23, 0.21. ProBNP 16851 Influenza A and type B, RSV, SARS (coronavirus) are and detected EKG showing atrial flutter with a rate of 107 Chest x-ray showing evidence of CHF 07/06/2023 Today patient breathing is okay. He is on 2 L oxygen via nasal cannula which is his home dose. Patient states he has oxygen at home. No significant tachypnea or dyspnea or orthopnea while his line in bed. No leg edema or basilar crepitating Patient with no chest pain He remains on IV heparin and dual antiplatelet therapy of aspirin and Plavix. At home he was on liquids and DAPT with aspirin 81 mg and Plavix pt Is also on IV Lasix for which probably switch to oral dose today or tomorrow Her current complaint a 71, blood pressure was little the low side overnight while he was asleep with systolic around 90, currently improved systolic more than 100. Patient kept on metoprolol 25 mg which is increased from home twice daily to 3 times per day. Cartilage team were considering cardiac cath during this hospitalization Review of systems CONSTITUTIONAL: No fever, no malaise, no fatigue. HEENT: No recent visual problems or hearing problems. Denied any sore throat. CARDIOVASCULAR: No orthopnea, PND, no palpitations, no syncope. PULMONARY: No shortness of breath, no cough, no hemoptysis. GASTROINTESTINAL: No diarrhea, no nausea, no vomiting, no abdominal pain. Normoactive bowel sounds. NEUROLOGICAL: No headaches, no weakness, no numbness. Active Medications Generic Name Dose Route Start Last Admin Trade Name Freq PRN Reason Stop Dose Admin Aspirin 81 mg 07/06/23 09:00 Aspirin 81 Mg PO DAILY [facility] Atorvastatin Calcium 80 mg 07/06/23 09:00 Atorvastatin 80 Mg Tab PO DAILY [facility] Budesonide 0.5 mg 07/05/23 20:00 07/05/23 21:39 Budesonide 0.5 Mg/2 Ml Nebu INHALATION 0.5 mg RT-BID [facility] Administration Calcitriol 0.5 mcg 07/06/23 09:00 Calcitriol 0.25 Mcg Cap PO DAILY [facility] Clopidogrel Bisulfate 75 mg 07/06/23 09:00 Clopidogrel 75 Mg Tab PO DAILY [facility] Cyclobenzaprine HCl 5 mg 07/05/23 10:30 Cyclobenzaprine 5 Mg Tab PO BID PRN Muscle Spasm Dextrose/Water 50 ml 07/05/23 10:38 Dextrose 50% Syringe 50 Ml IVP PER PROTOCOL PRN Hypoglycemia Protocol Dextrose/Water 25 ml 07/05/23 10:38 Dextrose 50% Syringe 50 Ml IVP PER PROTOCOL PRN Hypoglycemia Protocol Digoxin 125 mcg 07/05/23 10:30 07/05/23 11:06 Digoxin 125 Mcg Tab PO 125 mcg Q2D [facility] Administration Escitalopram Oxalate 20 mg 07/06/23 09:00 Escitalopram 20 Mg Tab PO DAILY [facility] Folic Acid 1 mg 07/06/23 09:00 Folic Acid 1 Mg Tab PO DAILY [facility] Furosemide 40 mg 07/05/23 09:00 07/05/23 20:17 Furosemide 10 Mg/Ml 2 Ml Vial IV 40 mg Q12HR [facility] Administration Heparin Sodium (Porcine) 0 unit 07/05/23 10:37 07/05/23 10:45 Heparin Sodium 1,000 Un/Ml (10ml Vl) IV 1,837 unit PER PROTOCOL PRN Administration Low PTT Protocol Heparin Sodium/Sodium Chloride 250 mls @ 8.818 mls/hr 07/04/23 23:15 07/06/23 03:45 25,000 unit/ Sodium Chloride IV 11.28 units/kg/hr .Q24H [facility] 8.289 mls/hr Administration Protocol 12 UNITS/KG/HR Insulin Aspart 0 unit 07/05/23 12:30 07/06/23 06:15 Insulin Aspart (Novolog) 100 Unit/Ml Vial SQ Not Given ACHS [facility] Protocol Levothyroxine Sodium 100 mcg 07/06/23 06:30 07/06/23 06:39 Levothyroxine 100 Mcg Tab PO 100 mcg DAILY@0630 [facility] Administration Linagliptin 5 mg 07/05/23 10:45 07/05/23 11:06 Linagliptin 5 Mg Tablet PO 5 mg DAILY [facility] Administration Losartan Potassium 25 mg 07/05/23 09:45 07/05/23 11:08 Losartan 25 Mg Tab PO 25 mg DAILY [facility] Administration Metoprolol Tartrate 25 mg 07/05/23 16:00 07/05/23 21:02 Metoprolol Tartrate 25 Mg Tab PO 25 mg TID [facility] Administration Montelukast Sodium 10 mg 07/05/23 21:00 07/05/23 20:17 Montelukast 10 Mg Tab PO 10 mg HS [facility] Administration Nitroglycerin 0.4 mg 07/04/23 23:07 Nitroglycerin Sl Tabs 0.4 Mg Tab SUBLINGUAL Q5M PRN Chest Pain Pantoprazole Sodium 40 mg 07/06/23 07:30 07/06/23 06:39 Pantoprazole 40 Mg Tablet PO 40 mg AC-[id number] [facility] Administration Tamsulosin HCl 0.4 mg 07/06/23 09:00 Tamsulosin 0.4 Mg Cap.Er.24h PO DAILY [facility] Objective - Vital Signs Vital signs: Vital Signs Temp 97.9 F 07/05/23 20:04 Pulse 67 07/06/23 03:47 Resp 16 07/06/23 03:47 BP 118/69 07/06/23 03:47 Pulse Ox 99 07/06/23 03:47 FiO2 Intake & Output 07/05/23 07/06/23 07/06/23 18:59 06:59 18:59 Intake Total 421.817 142.847 Output Total 625 Balance -203.183 142.847 Weight 73.6 kg 72.9 kg Intake: Intake, IV Titration 41.817 142.847 Amount Heparin Sod,Pork in 0.45% 41.817 142.847 NaCl 25,000 unit In 0.45 % NaCl 1 250ml.bag @ 12 UNITS/KG/HR 8.818 mls/hr IV .Q24H [facility] Rx#: [id number] Oral 380 Output: Urine 625 Other: Voiding Method Toilet Bedside Commode Urinal # Voids 2 - Exam GENERAL: The patient is alert and oriented x3, not in any acute distress. Well d eveloped, well nourished. HEENT: Pupils are round and equally reacting to light. EOMI. No scleral icterus. No conjunctival pallor. Normocephalic, atraumatic. No pharyngeal erythema. No thyromegaly. CARDIOVASCULAR: S1 and S2 present. No murmurs, rubs, or gallops. PULMONARY: Chest is clear to auscultation, no wheezing , no crackles. ABDOMEN: Soft, nontender, nondistended, normoactive bowel sounds. No palpable organomegaly. MUSCULOSKELETAL: No joint swelling or deformity. EXTREMITIES: No cyanosis, clubbing, or pedal edema. NEUROLOGICAL: Gross neurological examination did not reveal any focal deficits. SKIN: No rashes. no petechiae. - Labs CBC & Chem 7: 07/04/23 19:31 07/05/23 09:09 Labs: Abnormal Lab Results - Last 24 Hours (Table) 07/05/23 07/05/23 07/05/23 Range/Units 09:09 09:09 09:09 APTT 42.6 H (22.0-30.0) sec Sodium 135 L (137-145) mmol/L Creatinine 1.30 H (0.66-1.25) mg/dL Glucose 104 H (74-99) mg/dL POC Glucose (mg/dL) (70-110) mg/dL Hemoglobin A1c 6.7 H (<=6.0) % Troponin I (0.000-0.034) ng/mL TSH 0.104 L (0.465-4.680) mIU/L Free T4 3.88 H (0.78-2.19) ng/dL 07/05/23 07/05/23 07/05/23 Range/Units 09:09 15:52 16:53 APTT 51.6 H (22.0-30.0) sec Sodium (137-145) mmol/L Creatinine (0.66-1.25) mg/dL Glucose (74-99) mg/dL POC Glucose (mg/dL) 128 H (70-110) mg/dL Hemoglobin A1c (<=6.0) % Troponin I 0.187 H* (0.000-0.034) ng/mL TSH (0.465-4.680) mIU/L Free T4 (0.78-2.19) ng/dL 07/05/23 07/06/23 Range/Units 19:56 06:12 APTT (22.0-30.0) sec Sodium (137-145) mmol/L Creatinine (0.66-1.25) mg/dL Glucose (74-99) mg/dL POC Glucose (mg/dL) 166 H 113 H (70-110) mg/dL Hemoglobin A1c (<=6.0) % Troponin I (0.000-0.034) ng/mL TSH (0.465-4.680) mIU/L Free T4 (0.78-2.19) ng/dL Assessment and Plan Assessment: A. fib and RVR Acute on chronic systolic CHF Elevated troponin most likely secondary to above, Acute hypoxic respiratory failure Chronic kidney disease stage III COPD no acute exacerbation Plan: Continue with IV Lasix 40 mg twice daily Continue with heparin drip Continue with aspirin 325 mg. Also patient on home dose of Plavix Cardiology consult Labs and medication were reviewed.. Continue same treatment. Continue with symptomatic treatment. Resume home medication. Monitor labs and vitals. DVT and GI prophylaxis. Further recommendations as per clinical course of the patient DVT prophylaxis: Subcutaneous heparin GI Prophylaxis: Pepcid PT/OT: Pending Prognosis is guarded
[2023-07-06] MEDS: ESCITALOPRAM 20 MG TAB PO SCH (09:22)
[2023-07-06] MEDS: CLOPIDOGREL 75 MG TAB PO SCH (09:22)
[2023-07-06] MEDS: ASPIRIN 81 MG PO SCH (09:22)
[2023-07-06] MEDS: ATORVASTATIN 80 MG TAB PO SCH (09:22)
[2023-07-06] MEDS: TAMSULOSIN 0.4 MG CAP.ER.24H PO SCH (09:22)
[2023-07-06] MEDS: FOLIC ACID 1 MG TAB PO SCH (09:22)
[2023-07-06 11:30] LABS: Glucose,Whole Blood 113 mg/dL (70-110)
[2023-07-06] MEDS ORDERED: ALPRAZolam 0.25 MG TAB PO PRN (11:40)
[2023-07-06] MEDS ORDERED: ALPRAZolam 0.5 MG TAB PO PRN (11:40)
[2023-07-06] MEDS ORDERED: NITROGLYCERIN SL TABS 0.4 MG TAB SUBLINGUAL PRN (11:40)
--- NOTE | 2023-07-06 11:49 | P.PN ---
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 Patient follows in the office with Dr. Pat. We have been asked to see the patient in consultation for CHF, elevated troponins, and atrial fibrillation. Patient examined at the bedside in the emergency room. Patient states he presented to the hospital with a chief complaint of palpitations and shortness of breath. He states he has been present for the past 4 to 5 days. The patient was found to be in A-fib with RVR upon arrival to the hospital. He remains in atrial fibrillation with a heart rate around 120 at the time of examination. The patient was also started on IV Lasix secondary to CHF exacerbation. The patient is on 2 L nasal cannula maintaining oxygen saturations greater than 92%. The patient denies any chest pain or pressure. He reports improvement in his shortness of breath. He reports increased swelling to his left lower extremity and pain which he states has been present since his back surgery many years ago. The patient also reports he was hospitalized at the beginning of this year at [facility] due to congestive heart failure. DIAGNOSTICS: - EKG reveals atrial fibrillation with right bundle branch block. Heart rate 107. - Chest xray cardiomegaly, pulmonary vascular congestion and bilateral pleural effusions suggestive of moderate CHF - Laboratory data: WBC 8.2. Hemoglobin 11.2. Platelet count 182. Sodium 135. Potassium 3.9. BUN 18. Creatinine 1.27. Lactic acid 1.0. proBNP 16,400. Troponin 0.195. 0.239. 0.216. - Current home cardiac medications: None - Most recent echocardiogram obtained in October 2021 revealing ejection fraction 30 to 35%, global LV hypokinesis, moderate MR, moderate TR, severe pulmonary hypertension - Patient underwent Lexiscan stress test in July 2022 revealing partially reversible inferior wall defect with fixed apical perfusion defect - Cardiac catheterization history: November 2019 revealing patent stent within the left main that extends into the proximal LAD. Significant stenosis involving the proximal right coronary artery. The patient underwent stenting of the proximal RCA with a drug-eluting stent by Dr. Mondragon. 07/06/2023 Patient examined this morning at the bedside. He denies chest pain or pressure. He continues to report shortness of breath although improved from yesterday. He remains on IV Lasix. Labs from this morning are currently pending. He also remains on IV heparin. 2D echo is currently pending. Telemetry reveals atrial fibrillation with controlled ventricular rate. PHYSICAL EXAM: VITAL SIGNS: Reviewed. GENERAL: Well-developed in no acute distress. HEENT: Head is normocephalic. Pupils are equal, round. Sclerae anicteric. Mucous membranes of the mouth are moist. Neck supple. + JVD LUNGS: Respirations even and unlabored. Lungs diminished with bibasilar crackles HEART: Irregular rate and rhythm. S1 and S2 heard. Systolic murmur noted. ABDOMEN: Soft. Nondistended. Nontender. EXTREMITIES: Normal range of motion. No clubbing or cyanosis. Peripheral pulses intact. Left lower extremity edema noted. NEUROLOGIC: Awake and alert. Oriented but slightly confused at times. ASSESSMENT: Generalized weakness Acute on chronic heart failure with reduced EF 30 to 35%,, proBNP 16,400 NSTEMI versus type II [place] Permanent atrial fibrillation with RVR Ischemic cardiomyopathy, ejection fraction 30 to 35% Coronary artery disease with previous stenting Hypertension Hyperlipidemia Peripheral arterial disease with previous amputation of toes on the right foot Valvular heart disease including moderate MR and TR Severe pulmonary hypertension PLAN: Continue IV heparin Continue current cardiac medications Continue IV Lasix 40 mg twice a day Daily weights, accurate intake and output, and monitoring of kidney function Patient will tentatively be scheduled for cardiac catheterization tomorrow with Dr. Pat Further recommendations pending patient course Nurse practitioner note has been reviewed by physician. Signing provider agrees with the documented findings, assessment, and plan of care documented by PADDER as a scribe. Objective - Vital Signs Vital signs: Vital Signs Temp 97.9 F 07/06/23 09:20 Pulse 83 07/06/23 09:20 Resp 17 07/06/23 09:20 BP 109/63 07/06/23 09:20 Pulse Ox 98 07/06/23 09:20 FiO2 Intake & Output 07/05/23 07/06/23 07/06/23 18:59 06:59 18:59 Intake Total 421.817 142.847 Output Total 625 Balance -203.183 142.847 Weight 73.6 kg 72.9 kg Intake: Intake, IV Titration 41.817 142.847 Amount Heparin Sod,Pork in 0.45% 41.817 142.847 NaCl 25,000 unit In 0.45 % NaCl 1 250ml.bag @ 12 UNITS/KG/HR 8.818 mls/hr IV .Q24H [facility] Rx#: [id number] Oral 380 Output: Urine 625 Other: Voiding Method Toilet Bedside Commode Bedside Commode Urinal Urinal # Voids 2 # Bowel Movements 1 - Labs CBC & Chem 7: 07/04/23 19:31 07/05/23 09:09 Labs: Abnormal Lab Results - Last 24 Hours (Table) 07/05/23 07/05/23 07/05/23 Range/Units 09:09 15:52 16:53 APTT 51.6 H (22.0-30.0) sec POC Glucose (mg/dL) 128 H (70-110) mg/dL Hemoglobin A1c 6.7 H (<=6.0) % 07/05/23 07/06/23 07/06/23 Range/Units 19:56 06:12 11:28 APTT (22.0-30.0) sec POC Glucose (mg/dL) 166 H 113 H 113 H (70-110) mg/dL Hemoglobin A1c (<=6.0) %
[2023-07-06 12:00] LABS: Anisocytosis Slight; Basophils # (A) 0.1 k/uL (0-0.2); Basophils % (A) 1 %; Eosinophils # (A) 0.4 k/uL (0-0.7); Eosinophils % (A) 5 %; HCT 34.1 % (39.0-53.0); HGB 11.2 gm/dL (13.0-17.5); Hypochromasia Slight; Lymphocytes # (A) 2.3 k/uL (1.0-4.8); Lymphocytes % (A) 28 %; MCH 31.9 pg (25.0-35.0); MCHC 32.8 g/dL (31.0-37.0); MCV 97.2 fL (80.0-100.0); Macrocytosis Slight; Mean Platelet Volume 7.6; Monocytes # (A) 0.7 k/uL (0-1.0); Monocytes % (A) 8 %; Neutrophils # (A) 4.7 k/uL (1.3-7.7); Neutrophils % (A) 57 %; Platelet Count 216 k/uL (150-450); RBC 3.51 m/uL (4.30-5.90); RDW 17.6 % (11.5-15.5); WBC 8.3 k/uL (3.8-10.6)
[2023-07-06 12:33] LABS: African American GFR (CKD) 42 (>60 ml/min/1.73 sqM); Anion Gap 5 mmol/L; Blood Urea Nitrogen 29 mg/dL (9-20); Calcium 9.3 mg/dL (8.4-10.2); Carbon Dioxide 29 mmol/L (22-30); Chloride 102 mmol/L (98-107); Glucose 109 mg/dL (74-99); Non-African American GFR(CKD) 37 (>60 ml/min/1.73 sqM); Potassium 3.5 mmol/L (3.5-5.1); Sodium 136 mmol/L (137-145)
--- NOTE | 2023-07-06 12:33 | CA ---
Transthoracic Echo Report Name: Ag Quiroz Age: 83 Gender: M : 1940 Exam Date: 07/06/2023 09:40 Exam Location: [facility] Ht (in): 66 Wt (lb): 162 Ordering Physician: Cinthia Chin Attending/Referring Phys: [id number], Giuseppe [employer] Management Consultant Jerad Liao RD Procedure CPT: Indications: LV function, AF, CHF Cardiac Hx: Technical Quality: Technically difficult study Contrast 1: Total Dose (mL): Contrast 2: Total Dose (mL): MEASUREMENTS (Male / Female) Normal Values 2D ECHO LV Diastolic Diameter PLAX 5.4 cm 4.2 - 5.9 / 3.9 - 5.3 cm LV Systolic Diameter PLAX 3.9 cm IVS Diastolic Thickness 1.1 cm 0.6 - 1.0 / 0.6 - 0.9 cm LVPW Diastolic Thickness 1.2 cm 0.6 - 1.0 / 0.6 - 0.9 cm LV Relative Wall Thickness 0.4 LVOT Diameter 1.9 cm Aortic Root Diameter 3.1 cm LA Systolic Diameter LX 2.3 cm 3.0 - 4.0 / 2.7 - 3.8 cm LV Diastolic Volume MOD BP 70.4 cm??? 67 - 155 / 56 - 104 cm??? LV Systolic Volume MOD BP 45.8 cm??? 22 - 58 / 19 - 49 cm??? LV Ejection Fraction MOD BP 34.9 % >= 55 % LV Cardiac Index MOD BP 922.4 cm???/min???m??? LV Diastolic Volume MOD 4C 54.6 cm??? LV Systolic Volume MOD 4C 32.9 cm??? LV Ejection Fraction MOD 4C 39.8 % LV Cardiac Index MOD 4C 815.4 cm???/min???m??? LV Diastolic Length 4C 7.2 cm LV Systolic Length 4C 6.5 cm LV Diastolic Volume MOD 2C 87.7 cm??? LV Systolic Volume MOD 2C 57.6 cm??? LV Ejection Fraction MOD 2C 34.3 % LV Cardiac Index MOD 2C 1129.3 cm???/min???m??? LV Diastolic Length 2C 7.5 cm LV Systolic Length 2C 7.3 cm LA Volume 50.0 cm??? 18 - 58 / 22 - 52 cm??? LA Volume Index 26.8 cm???/m??? 16 - 28 cm???/m??? DOPPLER AV Peak Velocity 171.7 cm/s AV Peak Gradient 11.8 mmHg AV Mean Velocity 128.3 cm/s AV Mean Gradient 7.5 mmHg AV Velocity Time Integral 39.2 cm AI Peak Velocity 209.8 cm/s AI Peak Gradient 17.6 mmHg AI Pressure Half Time 726.7 ms LVOT Peak Velocity 86.3 cm/s LVOT Peak Gradient 3.0 mmHg LVOT Velocity Time Integral 18.1 cm LVOT Stroke Volume 53.1 cm??? LVOT Stroke Volume Index 29.1 ml/m??? LVOT Cardiac Index 1996.4 cm???/min???m??? AV Area Cont Eq vti 1.4 cm??? AV Area Cont Eq pk 1.5 cm??? MV Peak Velocity 113.0 cm/s MV Peak Gradient 5.1 mmHg MV Mean Velocity 51.9 cm/s MV Mean Gradient 1.5 mmHg MV Velocity Time Integral 31.1 cm MR Peak Velocity 261.9 cm/s MR Peak Gradient 27.4 mmHg Mitral E Point Velocity 93.6 cm/s Mitral A Point Velocity 3.3 cm/s Mitral E to A Ratio 28.6 MV Deceleration Time 205.6 ms TR Peak Velocity 297.8 cm/s TR Peak Gradient 35.5 mmHg Right Ventricular Systolic Press 40.5 mmHg PV Peak Velocity 66.2 cm/s PV Peak Gradient 1.8 mmHg FINDINGS Left Ventricle Normal LV size and wall thickness. Apical akinesis. Distal anterior wall akinesis Left ventricular ejection fraction is estimated at 30-35 %. Right Ventricle Normal right ventricular size. RVSP= 40mHg. Right Atrium Normal right atrial size. Left Atrium Mild to moderate left atrial dilatation. Mitral Valve Structurally normal mitral valve. moderate MR.mitral annular calcification. Aortic Valve Aortic valve not well visualized. Moderate AI. No aortic stenosis. Tricuspid Valve Structurally normal tricuspid valve.moderate tricuspid regurgitation. Pulmonic Valve Pulmonic valve not well visualized. No pulmonic regurgitation. Pericardium No pericardial effusion. Aorta Normal size aortic root. CONCLUSIONS 1. Severely impaired left ventricular systolic function with segmental wall motion abnormality 2. Moderate mitral, aortic and tricuspid regurgitation 3. Mild pulmonary hypertension Previewed by: Dr. Jamin Reich MD (Electronically Signed) Final Date: 06 July 2023 12:32
[2023-07-06] MEDS: SODIUM CHLORIDE 0.9% 1,000 ML IV SCH (16:17)
[2023-07-06 16:28] LABS: Glucose,Whole Blood 168 mg/dL (70-110)
[2023-07-06 16:45] LABS: Anisocytosis Slight; Basophils % (A) 1 %; Eosinophils # (A) 0.3 k/uL (0-0.7); Eosinophils % (A) 4 %; HCT 32.9 % (39.0-53.0); HGB 10.7 gm/dL (13.0-17.5); Hypochromasia Slight; Lymphocytes % (A) 27 %; MCH 31.4 pg (25.0-35.0); MCHC 32.3 g/dL (31.0-37.0); Macrocytosis Slight; Mean Platelet Volume 8.1; Monocytes # (A) 0.5 k/uL (0-1.0); Monocytes % (A) 7 %; Neutrophils # (A) 4.3 k/uL (1.3-7.7); Neutrophils % (A) 59 %; Platelet Count 186 k/uL (150-450); RDW 17.6 % (11.5-15.5); WBC 7.3 k/uL (3.8-10.6)
[2023-07-06 17:32] LABS: African American GFR (CKD) 43 (>60 ml/min/1.73 sqM); Anion Gap 4 mmol/L; Blood Urea Nitrogen 31 mg/dL (9-20); Calcium 9.1 mg/dL (8.4-10.2); Carbon Dioxide 27 mmol/L (22-30); Chloride 105 mmol/L (98-107); Glucose 148 mg/dL (74-99); Non-African American GFR(CKD) 37 (>60 ml/min/1.73 sqM); Potassium 3.3 mmol/L (3.5-5.1); Sodium 136 mmol/L (137-145)
[2023-07-06 20:12] LABS: Glucose,Whole Blood 133 mg/dL (70-110)
[2023-07-06] MEDS: METOPROLOL TARTRATE 25 MG TAB PO SCH (20:40)
[2023-07-07] MEDS: ASPIRIN 325 MG TAB PO ONE (06:10)
[2023-07-07] MEDS: ATORVASTATIN 80 MG TAB PO ONE (06:10)
[2023-07-07] MEDS: SODIUM CHLORIDE 0.9% 1,000 ML in EMPTY BAG 1 BAG IV SCH (06:10)
[2023-07-07 06:21] LABS: Glucose,Whole Blood 108 mg/dL (70-110)
[2023-07-07] MEDS ORDERED: HEPARIN SODIUM,PORCINE 10,000 UNIT in SODIUM CHLORIDE 0.9% 1,000 ML IRRIGATION PRN (07:00)
[2023-07-07] MEDS ORDERED: HEPARIN SODIUM,PORCINE (1 ML) 2,500 UNIT in SODIUM CHLORIDE 0.9% 250 ML IRRIGATION PRN (07:00)
--- NOTE | 2023-07-07 09:31 | P.PN ---
Subjective This is a pleasant 83 years old male with past medical history of COPD, atrial fibrillation , chronic kidney disease stage III, diabetes mellitus, h ypertension, coronary artery disease, history of pulmonary embolism patient presents because of palpitation. Denies chest pain. Denies shortness of breath however patient was noticed little bit tachypneic and was breathing difficulties while he was talking. He denies abdominal pain vomiting or di arrhea. He has dry cough. He denies dysuria or urgency. No headaches or dizziness weakness or numbness. At baseline and he uses a walker He is not on home oxygen He denies smoking alcohol or illicit drugs He is hemodynamically stable. His tachycardic and tachypneic with heart rate 116, respiratory 24, currently he is 98% on 3 L oxygen via nasal cannula CBC is unremarkable except for mild anemia with hemoglobin 11.2. BMP is unremarkable with creatinine at baseline of 1.28. Baseline 1.2-1.5. LFTs unremarkable Urine analysis is unremarkable except for glucosuria. Troponin is elevated 0.1, 0.23, 0.21. ProBNP 65397 Influenza A and type B, RSV, SARS (coronavirus) are and detected EKG showing atrial flutter with a rate of 107 Chest x-ray showing evidence of CHF 07/06/2023 Today patient breathing is okay. He is on 2 L oxygen via nasal cannula which is his home dose. Patient states he has oxygen at home. No significant tachypnea or dyspnea or orthopnea while his line in bed. No leg edema or basilar crepitating Patient with no chest pain He remains on IV heparin and dual antiplatelet therapy of aspirin and Plavix. At home he was on liquids and DAPT with aspirin 81 mg and Plavix pt Is also on IV Lasix for which probably switch to oral dose today or tomorrow Her current complaint a 71, blood pressure was little the low side overnight while he was asleep with systolic around 90, currently improved systolic more than 100. Patient kept on metoprolol 25 mg which is increased from home twice daily to 3 times per day. Cartilage team were considering cardiac cath during this hospitalization 07/07/2023 Patient denies dyspnea. He is awake alert and states his back to his normal self. No chest pain no palpitation He remains on heparin drip and IV Lasix for his A. fib and acute CHF exacerbation His oxygen requirement actually back to baseline of 2 L/m with saturating 98%. No leg edema Remains on aspirin Plavix and heparin drip, he confirms to me at home he was taking aspirin Plavix and Eliquis for long time with prescription at home and he does not need anymore Patient is going for cardiac cath today Objective - Vital Signs Vital signs: Vital Signs Temp 97.5 F L 07/07/23 07:55 Pulse 78 07/07/23 09:04 Resp 18 07/07/23 09:04 BP 98/58 07/07/23 09:04 Pulse Ox 98 07/07/23 09:04 FiO2 Intake & Output 07/06/23 07/07/23 07/07/23 18:59 06:59 18:59 Intake Total 110 177.246 Balance 110 177.246 Weight 73.1 kg Intake: Intake, IV Titration 177.246 Amount Heparin Sod,Pork in 0.45% 177.246 NaCl 25,000 unit In 0.45 % NaCl 1 250ml.bag @ 12 UNITS/KG/HR 8.818 mls/hr IV .Q24H [facility] Rx#: [id number] Oral 110 Other: Voiding Method Bedside Commode Bedside Commode Urinal Urinal # Bowel Movements 1 - Exam GENERAL: The patient is alert and oriented x3, not in any acute distress. Well developed, well nourished. HEENT: Pupils are round and equally reacting to light. EOMI. No scleral icterus. No conjunctival pallor. Normocephalic, atraumatic. No pharyngeal erythema. No thyromegaly. CARDIOVASCULAR: S1 and S2 present. No murmurs, rubs, or gallops. PULMONARY: Chest is clear to auscultation, no wheezing , no crackles. ABDOMEN: Soft, nontender, nondistended, normoactive bowel sounds. No palpable organomegaly. MUSCULOSKELETAL: No joint swelling or deformity. EXTREMITIES: No cyanosis, clubbing, or pedal edema. NEUROLOGICAL: Gross neurological examination did not reveal any focal deficits. SKIN: No rashes. no petechiae. - Labs CBC & Chem 7: 07/06/23 16:23 07/06/23 16:23 Labs: Abnormal Lab Results - Last 24 Hours (Table) 07/06/23 07/06/23 07/06/23 Range/Units 11:28 11:31 11:31 RBC 3.51 L (4.30-5.90) m/uL Hgb 11.2 L (13.0-17.5) gm/dL Hct 34.1 L (39.0-53.0) % RDW 17.6 H (11.5-15.5) % APTT (22.0-30.0) sec Sodium 136 L (137-145) mmol/L Potassium (3.5-5.1) mmol/L BUN 29 H (9-20) mg/dL Creatinine 1.70 H (0.66-1.25) mg/dL Glucose 109 H (74-99) mg/dL POC Glucose (mg/dL) 113 H (70-110) mg/dL 07/06/23 07/06/23 07/06/23 Range/Units 11:31 16:23 16:23 RBC 3.40 L (4.30-5.90) m/uL Hgb 10.7 L (13.0-17.5) gm/dL Hct 32.9 L (39.0-53.0) % RDW 17.6 H (11.5-15.5) % APTT 48.4 H (22.0-30.0) sec Sodium 136 L (137-145) mmol/L Potassium 3.3 L (3.5-5.1) mmol/L BUN 31 H (9-20) mg/dL Creatinine 1.69 H (0.66-1.25) mg/dL Glucose 148 H (74-99) mg/dL POC Glucose (mg/dL) (70-110) mg/dL 07/06/23 07/06/23 Range/Units 16:27 20:11 RBC (4.30-5.90) m/uL Hgb (13.0-17.5) gm/dL Hct (39.0-53.0) % RDW (11.5-15.5) % APTT (22.0-30.0) sec Sodium (137-145) mmol/L Potassium (3.5-5.1) mmol/L BUN (9-20) mg/dL Creatinine (0.66-1.25) mg/dL Glucose (74-99) mg/dL POC Glucose (mg/dL) 168 H 133 H (70-110) mg/dL Assessment and Plan Assessment: A. fib and RVR Acute on chronic systolic CHF Elevated troponin most likely secondary to above, Acute hypoxic respiratory failure Chronic kidney disease stage III COPD no acute exacerbation Plan: Continue with IV Lasix 40 mg twice daily Continue with heparin drip Continue with aspirin 325 mg. Also patient on home dose of Plavix Cardiology consult Labs and medication were reviewed.. Continue same treatment. Continue with symptomatic treatment. Resume home medication. Monitor labs and vitals. DVT and GI prophylaxis. Further recommendations as per clinical course of the patient DVT prophylaxis: Subcutaneous heparin GI Prophylaxis: Pepcid PT/OT: Pending Prognosis is guarded
[2023-07-07 11:30] LABS: Glucose,Whole Blood 144 mg/dL (70-110)
[2023-07-07] MEDS ORDERED: ALPRAZolam 0.5 MG TAB PO PRN (11:39)
[2023-07-07] MEDS ORDERED: ALPRAZolam 0.25 MG TAB PO PRN (11:39)
[2023-07-07] MEDS ORDERED: NITROGLYCERIN SL TABS 0.4 MG TAB SUBLINGUAL PRN (11:39)
--- NOTE | 2023-07-07 11:43 | P.PN ---
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 Patient follows in the office with Dr. Pat. We have been asked to see the patient in consultation for CHF, elevated troponins, and atrial fibrillation. Patient examined at the bedside in the emergency room. Patient states he presented to the hospital with a chief complaint of palpitations and shortness of breath. He states he has been present for the past 4 to 5 days. The patient was found to be in A-fib with RVR upon arrival to the hospital. He remains in atrial fibrillation with a heart rate around 120 at the time of examination. The patient was also started on IV Lasix secondary to CHF exacerbation. The patient is on 2 L nasal cannula maintaining oxygen saturations greater than 92%. The patient denies any chest pain or pressure. He reports improvement in his shortness of breath. He reports increased swelling to his left lower extremity and pain which he states has been present since his back surgery many years ago. The patient also reports he was hospitalized at the beginning of this year at [facility] due to congestive heart failure. DIAGNOSTICS: - EKG reveals atrial fibrillation with right bundle branch block. Heart rate 107. - Chest xray cardiomegaly, pulmonary vascular congestion and bilateral pleural effusions suggestive of moderate CHF - Laboratory data: WBC 8.2. Hemoglobin 11.2. Platelet count 182. Sodium 135. Potassium 3.9. BUN 18. Creatinine 1.27. Lactic acid 1.0. proBNP 16,400. Troponin 0.195. 0.239. 0.216. - Current home cardiac medications: None - Most recent echocardiogram obtained in October 2021 revealing ejection fraction 30 to 35%, global LV hypokinesis, moderate MR, moderate TR, severe pulmonary hypertension - Patient underwent Lexiscan stress test in July 2022 revealing partially reversible inferior wall defect with fixed apical perfusion defect - Cardiac catheterization history: November 2019 revealing patent stent within the left main that extends into the proximal LAD. Significant stenosis involving the proximal right coronary artery. The patient underwent stenting of the proximal RCA with a drug-eluting stent by Dr. Mondragon. 07/06/2023 Patient examined this morning at the bedside. He denies chest pain or pressure. He continues to report shortness of breath although improved from yesterday. He remains on IV Lasix. Labs from this morning are currently pending. He also remains on IV heparin. 2D echo is currently pending. Telemetry reveals atrial fibrillation with controlled ventricular rate. 07/07/2023 Patient examined this morning at the bedside. Patient denies any chest pain or pressure. He denies any shortness of breath. Patient was receiving IV Lasix. However this was discontinued secondary to worsening kidney function. Patient was initially scheduled for cardiac catheterization today. However due to scheduling issues, this will be rescheduled for tomorrow. PHYSICAL EXAM: VITAL SIGNS: Reviewed. GENERAL: Well-developed in no acute distress. HEENT: Head is normocephalic. Pupils are equal, round. Sclerae anicteric. Mucous membranes of the mouth are moist. Neck supple. + JVD LUNGS: Respirations even and unlabored. Lungs diminished with bibasilar crackles HEART: Irregular rate and rhythm. S1 and S2 heard. Systolic murmur noted. ABDOMEN: Soft. Nondistended. Nontender. EXTREMITIES: Normal range of motion. No clubbing or cyanosis. Peripheral pulses intact. Left lower extremity edema noted. NEUROLOGIC: Awake and alert. Oriented but slightly confused at times. 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 Resume Eliquis post cardiac catheterization. Continue aspirin. Plavix discontinued as patient's last stenting was greater than 1 year ago. Continue current cardiac medications IV Lasix discontinued secondary to worsening kidney function Daily weights, accurate intake and output, and monitoring of kidney function Patient will tentatively be scheduled for cardiac catheterization tomorrow with Dr. Pat pending renal function N.p.o. after midnight Precath hydration to begin tomorrow at 0600 Further recommendations pending patient course Nurse practitioner note has been reviewed by physician. Signing provider agrees with the documented findings, assessment, and plan of care documented by SHREDDING MACHINE KNIFE CHANGER as a scribe. Objective - Vital Signs Vital signs: Vital Signs Temp 97.7 F 07/07/23 11:01 Pulse 87 07/07/23 11:01 Resp 18 07/07/23 11:01 BP 108/57 07/07/23 11:01 Pulse Ox 94 L 07/07/23 11:01 FiO2 Intake & Output 07/06/23 07/07/23 07/07/23 18:59 06:59 18:59 Intake Total 110 177.246 Balance 110 177.246 Weight 73.1 kg Intake: Intake, IV Titration 177.246 Amount Heparin Sod,Pork in 0.45% 177.246 NaCl 25,000 unit In 0.45 % NaCl 1 250ml.bag @ 12 UNITS/KG/HR 8.818 mls/hr IV .Q24H [facility] Rx#: [id number] Oral 110 Other: Voiding Method Bedside Commode Bedside Commode Bedside Commode Urinal Urinal Urinal # Bowel Movements 1 - Labs CBC & Chem 7: 07/06/23 16:23 07/06/23 16:23 Labs: Abnormal Lab Results - Last 24 Hours (Table) 07/06/23 07/06/23 07/06/23 Range/Units 11:31 11:31 11:31 RBC 3.51 L (4.30-5.90) m/uL Hgb 11.2 L (13.0-17.5) gm/dL Hct 34.1 L (39.0-53.0) % RDW 17.6 H (11.5-15.5) % APTT 48.4 H (22.0-30.0) sec Sodium 136 L (137-145) mmol/L Potassium (3.5-5.1) mmol/L BUN 29 H (9-20) mg/dL Creatinine 1.70 H (0.66-1.25) mg/dL Glucose 109 H (74-99) mg/dL POC Glucose (mg/dL) (70-110) mg/dL 07/06/23 07/06/23 07/06/23 Range/Units 16:23 16:23 16:27 RBC 3.40 L (4.30-5.90) m/uL Hgb 10.7 L (13.0-17.5) gm/dL Hct 32.9 L (39.0-53.0) % RDW 17.6 H (11.5-15.5) % APTT (22.0-30.0) sec Sodium 136 L (137-145) mmol/L Potassium 3.3 L (3.5-5.1) mmol/L BUN 31 H (9-20) mg/dL Creatinine 1.69 H (0.66-1.25) mg/dL Glucose 148 H (74-99) mg/dL POC Glucose (mg/dL) 168 H (70-110) mg/dL 07/06/23 07/07/23 07/07/23 Range/Units 20:11 09:24 11:29 RBC (4.30-5.90) m/uL Hgb (13.0-17.5) gm/dL Hct (39.0-53.0) % RDW (11.5-15.5) % APTT 47.7 H (22.0-30.0) sec Sodium (137-145) mmol/L Potassium (3.5-5.1) mmol/L BUN (9-20) mg/dL Creatinine (0.66-1.25) mg/dL Glucose (74-99) mg/dL POC Glucose (mg/dL) 133 H 144 H (70-110) mg/dL
--- NOTE | 2023-07-07 12:58 | P.CNPUL ---
History of Present Illness Consult date: 07/07/23 Reason for consult: dyspnea History of present illness: I was asked to evaluate this patient regarding shortness of breath. The patient is known to have an extensive cardiac history with history of coronary artery disease, CHF and a reduced ejection fraction of 30 to 35% and he has chronic atrial fibrillation. The patient is also known to have peripheral vascular disease. The patient presented to the hospital because of worsening shortness of breath and this has been progressively getting worse over the past 4 to 5 days prior to him coming into the hospital. Initially, in the ED, the patient was found to be in A-fib and RVR and his heart rate was quite tachycardic. He was in CHF exacerbation and was started on diuretics. He was placed on oxygen 2 L/min nasal cannula. He denies having any chest pain. His troponins were abnormal and the levels were 0.190.23 and 0.2 respectively x 3. His EKG showed atrial fibrillation with a right bundle branch block pattern. Chest x-ray showed CHF with pulm vessel congestion and bilateral pleural effusion. His most recent echocardiogram from October 2021 revealed reduced left ventricular ejection fraction of 30 to 35% along with global LV hypokinesis, moderate MR, moderate TR and severe pulm hypertension. He has undergone also previous cardiac catheterization from November 2019 revealing a patent stent in the proximal LAD. The patient also had significant stenosis involving the proximal RCA and he underwent stenting of the proximal RCA by cardiology. The plan for now is to repeat his cardiac catheterization based on his abnormal troponins as the patient was diagnosed having an acute non-ST segment elevation myocardial infarction. Otherwise, he is doing well. He is BUN is a 31 with a creatinine of 1.69 and the patient is known to have chronic stage III kidney disease. He r emains on IV heparin at this point in time. No history of smoking. No history of COPD or asthma. Nevertheless, the patient has a nebulizer at home and he has also oxygen at home that he uses on and off. Review of Systems Constitutional: Reports as per HPI Eyes: denies as per HPI, denies blurred vision, denies bulging eye, denies d ecreased vision, denies diplopia, denies discharge, denies dry eye, denies irritation, denies itching, denies pain, denies photophobia, denies loss of peripheral vision, denies loss of vision, denies tunnel vision/blind spots Ears: deny: decreased hearing, ear discharge, earache, tinnitus Ears, nose, mouth and throat: Reports as per HPI Breasts: absent: as per HPI, gynecomastia Cardiovascular: Reports decreased exercise tolerance, Reports dyspnea on exertion, Reports irregular heart beat, Reports palpitations, Reports shortness of breath Respiratory: Reports dyspnea Gastrointestinal: Reports as per HPI Genitourinary: Reports as per HPI Musculoskeletal: Reports prior amputations Musculoskeletal: absent: ankle pain, ankle stiffness, ankle swelling Integumentary: Reports as per HPI Neurological: Reports as per HPI Psychiatric: Reports as per HPI Endocrine: Reports as per HPI Hematologic/Lymphatic: Reports as per HPI Allergic/Immunologic: Reports as per HPI Past Medical History Past Medical History: Atrial Fibrillation, Coronary Artery Disease (CAD), Chest Pain / Angina, Diabetes Mellitus, Deep Vein Thrombosis (DVT), GERD/Reflux, GI Bleed, Hypertension, Thyroid Disorder Additional Past Medical History / Comment(s): upper and lower GI bld in 2014, diverticulosis, upper dental bridge Last Myocardial Infarction Date:: 02/2018 History of Any Multi-Drug Resistant Organisms: None Reported Past Surgical History: Back Surgery, Cholecystectomy, Heart Catheterization With Stent, Orthopedic Surgery Additional Past Surgical History / Comment(s): rotator cuff repair & WRIST SURGERY Past Anesthesia/Blood Transfusion Reactions: No Reported Reaction Date of Last Stent Placement:: 03/09/18 Past Psychological History: Anxiety Smoking Status: Former smoker Past Alcohol Use History: None Reported Past Drug Use History: None Reported - Past Family History Father History Unknown: Yes Additional Family Medical History / Comment(s): FAMILY HISTORY UNKNOWN.pt was placed in foster care at [address] living in 11 different families. Medications and Allergies Home Medications Medication Instructions Recorded Confirmed Type Apixaban [Eliquis] 2.5 mg PO BID 07/05/23 07/05/23 History Aspirin 81 mg PO DAILY 07/05/23 07/05/23 History Atorvastatin [Lipitor] 80 mg PO DAILY 07/05/23 07/05/23 History Budesonide [Pulmicort] 0.5 mg INHALATION RT-BID 07/05/23 07/05/23 History Clopidogrel [Plavix] 75 mg PO DAILY 07/05/23 07/05/23 History Cyclobenzaprine [Flexeril] 5 mg PO BID PRN 07/05/23 07/05/23 History Digoxin [Digitek] 125 mcg PO Q2D 07/05/23 07/05/23 History Empagliflozin [Jardiance] 10 mg PO DAILY 07/05/23 07/05/23 History Escitalopram [Lexapro] 20 mg PO DAILY 07/05/23 07/05/23 History Folic Acid 1 mg PO DAILY 07/05/23 07/05/23 History Insulin Glargine,Hum.rec.anlog 26 units SQ DAILY 07/05/23 07/05/23 History [Toujeo Max Solostar] Ipratropium-Albuterol Nebulize 3 ml INHALATION RT-QID 07/05/23 07/05/23 History [Duoneb 0.5 mg-3 mg/3 ml Soln] Levothyroxine Sodium [Synthroid] 150 mcg PO DAILY 07/05/23 07/05/23 History Linagliptin [Tradjenta] 5 mg PO DAILY 07/05/23 07/05/23 History Metoprolol Tartrate [Lopressor] 25 mg PO BID 07/05/23 07/05/23 History Montelukast [Singulair] 10 mg PO HS 07/05/23 07/05/23 History Multivitamins, Thera [Multivitamin 1 tab PO DAILY 07/05/23 07/05/23 History (formulary)] Pantoprazole [Protonix] 40 mg PO DAILY 07/05/23 07/05/23 History Potassium Chloride [Klor-Con M20] 20 meq PO DAILY 07/05/23 07/05/23 History Tamsulosin HCl [Flomax] 0.4 mg PO DAILY 07/05/23 07/05/23 History Torsemide [Demadex] 20 mg PO DAILY 07/05/23 07/05/23 History calcitrioL [Rocaltrol] 0.5 mcg PO DAILY 07/05/23 07/05/23 History Allergies Allergy/AdvReac Type Severity Reaction Status Date / Time cortisone Allergy Swelling Verified 12/18/19 06:24 Physical Exam Vitals: Vital Signs Temp Pulse Pulse Resp BP Pulse Ox 07/07/23 09:04 78 18 98/58 98 07/07/23 07:55 97.5 F L 63 18 105/59 99 07/07/23 04:00 98 18 115/60 97 07/07/23 00:00 97.8 F 70 16 107/53 98 07/06/23 20:08 97.3 F L 60 14 93/53 96 07/06/23 19:55 70 07/06/23 19:49 68 07/06/23 16:36 97.4 F L 70 12 83/49 94 L 07/06/23 15:55 50 L 18 83/49 94 L 07/06/23 11:30 67 17 94/55 96 Intake and Output 07/06/23 07/07/23 07/07/23 22:59 06:59 14:59 Intake Total 177.246 Balance 177.246 Intake: Intake, IV Titration 177.246 Amount Heparin Sod,Pork in 0.45% 177.246 NaCl 25,000 unit In 0.45 % NaCl 1 250ml.bag @ 12 UNITS/KG/HR 8.818 mls/hr IV .Q24H [facility] Rx#: [id number] Other: Voiding Method Bedside Commode Bedside Commode Bedside Commode Urinal Urinal Urinal Weight 73.1 kg General appearance the patient is calm and comfortable and currently on 2 L of oxygen nasal cannula Head exam was generally normal. There was no scleral icterus or corneal arcus. Mucous membranes were moist. Neck was supple and with jugular venous distension, thyromegaly, or carotid bruits. Carotids were easily palpable bilaterally. There was no adenopathy. Lung sounds are diminished bilaterally and the patient has diminished breath sound lung bases and scattered rales. Heart sounds are irregular consistent with atrial fibrillation. Systolic ejection murmur grade 3/6 also heard over the precordium. Abdominal exam revealed normal bowel sounds. The abdomen was soft, non-tender, and without masses, organomegaly, or appreciable enlargement of the abdominal aorta. Extremities reveal diminished pulses bilaterally and trace edema lower extremities. No cyanosis or clubbing. 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 Cranial nerves are essentially intact. Results - Laboratory Findings CBC and BMP: 07/06/23 16:23 07/06/23 16:23 Abnormal lab findings: Abnormal Labs 07/04/23 07/04/23 07/04/23 19:31 19:31 19:31 RBC 3.60 L Hgb 11.2 L Hct 34.5 L RDW 17.7 H APTT Sodium 135 L Potassium BUN Creatinine 1.27 H Glucose 132 H POC Glucose (mg/dL) Hemoglobin A1c Troponin I 0.195 H* Albumin 3.1 L TSH Free T4 Urine Protein Urine Glucose (UA) Ur Leukocyte Esterase Urine Bacteria Urine Mucus 07/04/23 07/05/23 07/05/23 23:55 00:36 03:23 RBC Hgb Hct RDW APTT Sodium Potassium BUN Creatinine Glucose POC Glucose (mg/dL) Hemoglobin A1c Troponin I 0.239 H* 0.216 H* Albumin TSH Free T4 Urine Protein Trace H Urine Glucose (UA) 4+ H Ur Leukocyte Esterase Small H Urine Bacteria Rare H Urine Mucus Rare H 07/05/23 07/05/23 07/05/23 03:23 09:09 09:09 RBC Hgb Hct RDW APTT 69.9 H 42.6 H Sodium 135 L Potassium BUN Creatinine 1.30 H Glucose 104 H POC Glucose (mg/dL) Hemoglobin A1c Troponin I Albumin TSH 0.104 L Free T4 3.88 H Urine Protein Urine Glucose (UA) Ur Leukocyte Esterase Urine Bacteria Urine Mucus 07/05/23 07/05/23 07/05/23 09:09 09:09 15:52 RBC Hgb Hct RDW APTT 51.6 H Sodium Potassium BUN Creatinine Glucose POC Glucose (mg/dL) Hemoglobin A1c 6.7 H Troponin I 0.187 H* Albumin TSH Free T4 Urine Protein Urine Glucose (UA) Ur Leukocyte Esterase Urine Bacteria Urine Mucus 07/05/23 07/05/23 07/06/23 16:53 19:56 06:12 RBC Hgb Hct RDW APTT Sodium Potassium BUN Creatinine Glucose POC Glucose (mg/dL) 128 H 166 H 113 H Hemoglobin A1c Troponin I Albumin TSH Free T4 Urine Protein Urine Glucose (UA) Ur Leukocyte Esterase Urine Bacteria Urine Mucus 07/06/23 07/06/23 07/06/23 11:28 11:31 11:31 RBC 3.51 L Hgb 11.2 L Hct 34.1 L RDW 17.6 H APTT Sodium 136 L Potassium BUN 29 H Creatinine 1.70 H Glucose 109 H POC Glucose (mg/dL) 113 H Hemoglobin A1c Troponin I Albumin TSH Free T4 Urine Protein Urine Glucose (UA) Ur Leukocyte Esterase Urine Bacteria Urine Mucus 07/06/23 07/06/23 07/06/23 11:31 16:23 16:23 RBC 3.40 L Hgb 10.7 L Hct 32.9 L RDW 17.6 H APTT 48.4 H Sodium 136 L Potassium 3.3 L BUN 31 H Creatinine 1.69 H Glucose 148 H POC Glucose (mg/dL) Hemoglobin A1c Troponin I Albumin TSH Free T4 Urine Protein Urine Glucose (UA) Ur Leukocyte Esterase Urine Bacteria Urine Mucus 07/06/23 07/06/23 07/07/23 16:27 20:11 09:24 RBC Hgb Hct RDW APTT 47.7 H Sodium Potassium BUN Creatinine Glucose POC Glucose (mg/dL) 168 H 133 H Hemoglobin A1c Troponin I Albumin TSH Free T4 Urine Protein Urine Glucose (UA) Ur Leukocyte Esterase Urine Bacteria Urine Mucus - Diagnostic Findings Chest x-ray: image reviewed Assessment and Plan Plan: Acute hypoxic respiratory failure secondary decompensated CHF and the patient is currently on 2 L of O2 nasal cannula. Chest x-ray is consistent with CHF and bilateral pleural effusion and pulmonary edema. Acute non-ST segment elevation myocardial infarction, abnormal troponins, currently on IV heparin Coronary artery disease with previous coronary intervention and stenting. Last cardiac catheterization was done in 2019 with patent stent to the LAD and the patient underwent stenting of the RCA CHF with reduced ejection fraction of 30 to 35%. proBNP level was elevated at time of admission at 16,400. The patient has had global LV dysfunction, moderate MR, moderate TR and severe pulm hypertension based on previous echocardiograms. 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 twice a day Continue Cozaar 25 mg p.o. daily Patient was being with IV Lasix and this was placed on hold based on his underlying renal function Proceed with cardiac catheterization and this will be done in a.m. Will continue to follow
[2023-07-07 16:28] LABS: Glucose,Whole Blood 149 mg/dL (70-110)
[2023-07-07 20:18] LABS: Glucose,Whole Blood 166 mg/dL (70-110)
[2023-07-08] MEDS: ASPIRIN 325 MG TAB PO ONE (06:03)
[2023-07-08] MEDS: SODIUM CHLORIDE 0.9% 1,000 ML in EMPTY BAG 1 BAG IV SCH (06:04)
[2023-07-08] MEDS: ATORVASTATIN 80 MG TAB PO ONE (06:04)
[2023-07-08 06:10] LABS: Glucose,Whole Blood 109 mg/dL (70-110)
[2023-07-08] MEDS ORDERED: HEPARIN SODIUM,PORCINE 10,000 UNIT in SODIUM CHLORIDE 0.9% 1,000 ML IRRIGATION PRN (07:00)
[2023-07-08] MEDS ORDERED: HEPARIN SODIUM,PORCINE (1 ML) 2,500 UNIT in SODIUM CHLORIDE 0.9% 250 ML IRRIGATION PRN (07:00)
[2023-07-08 09:50] LABS: African American GFR (CKD) 49 (>60 ml/min/1.73 sqM); Anion Gap 4 mmol/L; Blood Urea Nitrogen 32 mg/dL (9-20); Calcium 9.6 mg/dL (8.4-10.2); Carbon Dioxide 27 mmol/L (22-30); Chloride 105 mmol/L (98-107); Glucose 111 mg/dL (74-99); Non-African American GFR(CKD) 42 (>60 ml/min/1.73 sqM); Potassium 4.2 mmol/L (3.5-5.1); Sodium 136 mmol/L (137-145)
[2023-07-08 11:38] LABS: Glucose,Whole Blood 105 mg/dL (70-110)
[2023-07-08] MEDS ORDERED: VERAPAMIL 2.5 MG/ML 2 ML AMP ONE ×2 (12:02→14:50)
[2023-07-08] MEDS ORDERED: LIDOCAINE 1% INJ 10MG/ML (20 ML MDV) ONE ×2 (12:02→14:50)
[2023-07-08] MEDS ORDERED: HEPARIN SODIUM 1,000 UN/ML (10ML VL) ONE ×2 (12:02→15:19)
[2023-07-08] MEDS ORDERED: fentaNYL (PF) 50 MCG/ML 2 ML AMP ONE (12:02)
[2023-07-08] MEDS: MIDAZOLAM 2 MG/2 ML VIAL IVP ONE (12:08)
[2023-07-08] MEDS: fentaNYL (PF) 50 MCG/ML 2 ML AMP IVP ONE (12:09)
[2023-07-08] MEDS: LIDOCAINE 1% INJ 10MG/ML (20 ML MDV) SQ ONE (12:09)
[2023-07-08] MEDS: VERAPAMIL SYRINGE (5 MG/10 ML) INTRAARTER ONE ×2 (12:13→15:19)
[2023-07-08] MEDS: HEPARIN SODIUM 1,000 UN/ML (10ML VL) IVP ONE ×2 (12:14→15:20)
[2023-07-08] MEDS: PHENYLEPHRINE-0.9% NACL SYG 1,000 MCG/10 ML SYRINGE IVP ONE ×2 (12:25→12:36)
[2023-07-08] MEDS: PHENYLEPHRINE 10 MG/ML VIAL IV ONE ×2 (12:25→12:36)
[2023-07-08] MEDS: IOPAMIDOL-370 100ML BTL INJ ONE ×3 (12:52→16:22)
[2023-07-08] MEDS: SODIUM CHLORIDE 0.9% 1,000 ML IV ONE ×2 (12:52→15:10)
--- NOTE | 2023-07-08 12:57 | CC ---
CARDIAC CATHETERIZATION REPORT INDICATIONS: Acute [id number] elevation LA in a patient with known CAD, status post prior angioplasty with stent placement of right coronary artery and left main coronary artery. PROCEDURE NOTE: After obtaining informed consent, left heart catheterization and coronary angiogram were performed via the right radial artery using standard Brenda catheters. The patient tolerated the procedure well without any obvious immediate complications. His blood pressures were marginal to start with and with sedation he developed hypotension with systolic blood pressures in the 90s. We will give him pressors if necessary. The patient's right radial artery access was obtained using Seldinger technique, 6- Spanish sheath was placed. Catheters and wires were floated into the ascending aorta under fluoroscopic guidance. The patient received verapamil and heparin per protocol. Total sedation time was 20 minutes. FINDINGS: 1. Hemodynamics: Left ventricular end-diastolic pressure is 18 mm. There is no significant gradient across the aortic valve. 2. Left ventriculogram: Left ventriculogram is not performed. 3. Angiographic Data: a.Right Coronary Artery: Right coronary artery is a large dominant vessel and is free of stenosis. The previously placed stent appears patent. b.Left main coronary artery is a normal-sized vessel. The previous stent appears patent. Divides into left anterior descending coronary artery and circumflex coronary artery. LAD shows a focal 95% stenosis involving mid LAD. Circumflex coronary artery is a nondominant vessel and is free of stenosis. CONCLUSIONS: 1. 95% focal mid LAD stenosis. 2. Patent stent within the left main and right coronary artery. PLAN: To have Dr. ROXANE Mondragon review the angiographic data and proceed with angioplasty of the LAD. The patient has renal insufficiency. We used only 15 mL of dye to do the diagnostic cath. MMODL / IJN: [id number] /
--- NOTE | 2023-07-08 13:22 | P.PN ---
Subjective Progress Note Date: 07/08/23 I was asked to evaluate this patient regarding shortness of breath. The patient is known to have an extensive cardiac history with history of coronary artery disease, CHF and a reduced ejection fraction of 30 to 35% and he has chronic atrial fibrillation. The patient is also known to have peripheral v ascular disease. The patient presented to the hospital because of worsening shortness of breath and this has been progressively getting worse over the past 4 to 5 days prior to him coming into the hospital. Initially, in the ED, the patient was found to be in A-fib and RVR and his heart rate was quite tachycardic. He was in CHF exacerbation and was started on diuretics. He was placed on oxygen 2 L/min nasal cannula. He denies having any chest pain. His troponins were abnormal and the levels were 0.190.23 and 0.2 respectively x 3. His EKG showed atrial fibrillation with a right bundle branch block pattern. Chest x-ray showed CHF with pulm vessel congestion and bilateral pleural effusi on. His most recent echocardiogram from October 2021 revealed reduced left ventricular ejection fraction of 30 to 35% along with global LV hypokinesis, moderate MR, moderate TR and severe pulm hypertension. He has undergone also previous cardiac catheterization from November 2019 revealing a patent stent in the proximal LAD. The patient also had significant stenosis involving the proximal RCA and he underwent stenting of the proximal RCA by cardiology. The plan for now is to repeat his cardiac catheterization based on his abnormal troponins as the patient was diagnosed having an acute non-ST segment elevation myocardial infarction. Otherwise, he is doing well. He is BUN is a 31 with a creatinine of 1.69 and the patient is known to have chronic stage III kidney disease. He remains on IV heparin at this point in time. No history of smoking. No history of COPD or asthma. Nevertheless, the patient has a nebulizer at home and he has also oxygen at home that he uses on and off. On 07/08/2023, the patient is being seen for a follow-up. I saw this patient yesterday in consultation for shortness of breath and the patient was in CHF exacerbation. The patient also has chronic A-fib. The patient had some limited troponin leak. Echocardiogram showed an ejection fraction of 30 to 35%. The patient also had a cardiac catheterization that was done yesterday that showed 95% focal stenosis in the mid LAD, patent stent to left main and RCA and circumflex was nondominant and was free of any disease. The patient left ventricular diastolic pressure was 18 mmHg. The right coronary artery was dominant and the previous stent was essentially patent. The patient has underlying renal insufficiency. The only 15 cc of dye was used during the diagnostic catheter and the patient is going to undergo a subsequent stenting of the LAD. On today's evaluation, the BUN is a 32 to creatinine 1.5. Sodium is 136 and potassium level is at 4.2 and a serum bicarb is at 27. He is currently on room air oxygen. Has no specific complaints for now. Remains on IV heparin. Objective - Vital Signs Vital signs: Vital Signs Temp 97.7 F 07/08/23 08:48 Pulse 77 07/08/23 09:24 Resp 18 07/08/23 08:49 BP 111/69 07/08/23 08:48 Pulse Ox 96 07/08/23 09:17 FiO2 Intake & Output 07/07/23 07/08/23 07/08/23 18:59 06:59 18:59 Intake Total 292.754 100 Output Total 100 Balance 292.754 0 Intake: Intake, IV Titration 72.754 Amount Heparin Sod,Pork in 0.45% 72.754 NaCl 25,000 unit In 0.45 % NaCl 1 250ml.bag @ 12 UNITS/KG/HR 8.818 mls/hr IV .Q24H [facility] Rx#: [id number] Oral 220 100 Output: Urine 100 Other: Voiding Method Bedside Commode Bedside Commode Bedside Commode Urinal Urinal Urinal - Exam General appearance the patient is calm and comfortable and currently on 2 L of oxygen nasal cannula Head exam was generally normal. There was no scleral icterus or corneal arcus. Mucous membranes were moist. Neck was supple and with jugular venous distension, thyromegaly, or carotid bruits. Carotids were easily palpable bilaterally. There was no adenopathy. Lung sounds are diminished bilaterally and the patient has diminished breath sound lung bases and scattered rales. Heart sounds are irregular consistent with atrial fibrillation. Systolic ejection murmur grade 3/6 also heard over the precordium. Abdominal exam revealed normal bowel sounds. The abdomen was soft, non-tender, and without masses, organomegaly, or appreciable enlargement of the abdominal aorta. Extremities reveal diminished pulses bilaterally and trace edema lower extremities. No cyanosis or clubbing. 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 Cranial nerves are essentially intact. - Labs CBC & Chem 7: 07/06/23 16:23 07/08/23 07:50 Labs: Abnormal Lab Results - Last 24 Hours (Table) 07/07/23 07/07/23 07/07/23 Range/Units 11:29 16:27 20:17 APTT (22.0-30.0) sec Sodium (137-145) mmol/L BUN (9-20) mg/dL Creatinine (0.66-1.25) mg/dL Glucose (74-99) mg/dL POC Glucose (mg/dL) 144 H 149 H 166 H (70-110) mg/dL 07/08/23 07/08/23 Range/Units 07:50 07:50 APTT 52.8 H (22.0-30.0) sec Sodium 136 L (137-145) mmol/L BUN 32 H (9-20) mg/dL Creatinine 1.52 H (0.66-1.25) mg/dL Glucose 111 H (74-99) mg/dL POC Glucose (mg/dL) (70-110) mg/dL Assessment and Plan Plan: Acute hypoxic respiratory failure secondary decompensated CHF and the patient is improved and the patient is currently on room air oxygen Acute non-ST segment elevation myocardial infarction, abnormal troponins, currently on IV heparin, cardiac catheterization was completed and further a ngioplasty is to follow.Based on the cardiac catheterization, the patient was found to have 95% focal mid LAD lesion and patent stent to left main and RCA. The patient will need further angioplasty and stenting of the LAD. Coronary artery disease with previous coronary intervention and stenting. Last cardiac catheterization was done in 2019 with patent stent to the LAD and the patient underwent stenting of the RCA CHF with reduced ejection fraction of 30 to 35%. proBNP level was elevated at time of admission at 16,400. The patient has had global LV dysfunction, moderate MR, moderate TR and severe pulm hypertension based on previous echocardiograms. 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 Continue IV heparin Monitor the renal function postcontrast administration Watch for any signs of contrast nephropathy Cardiac catheterization and angioplasty and stenting of the LAD at a later stage per cardiology. Continue aspirin and Plavix has been discontinued Continue metoprolol 25 mg p.o. twice a day Stop the Cozaar for now Discontinuing the diuretics Monitor renal function Gentle hydration Will continue to follow
[2023-07-08] MEDS: NITROGLYCERIN 1000MCG/10ML SYRINGE INTRACORON ONE (15:55)
[2023-07-08] MEDS ORDERED: CLOPIDOGREL 75 MG TAB ONE (16:25)
[2023-07-08] MEDS: CLOPIDOGREL 75 MG TAB PO ONE (16:38)
[2023-07-08 17:23] LABS: Glucose,Whole Blood 114 mg/dL (70-110)
[2023-07-08] MEDS: APIXABAN 5 MG TAB PO SCH (17:50)
[2023-07-08 21:21] LABS: Glucose,Whole Blood 151 mg/dL (70-110)
--- NOTE | 2023-07-08 22:11 | P.PN ---
Subjective This is a pleasant 83 years old male with past medical history of COPD, atrial fibrillation , chronic kidney disease stage III, diabetes mellitus, h ypertension, coronary artery disease, history of pulmonary embolism patient presents because of palpitation. Denies chest pain. Denies shortness of breath however patient was noticed little bit tachypneic and was breathing difficulties while he was talking. He denies abdominal pain vomiting or di arrhea. He has dry cough. He denies dysuria or urgency. No headaches or dizziness weakness or numbness. At baseline and he uses a walker He is not on home oxygen He denies smoking alcohol or illicit drugs He is hemodynamically stable. His tachycardic and tachypneic with heart rate 116, respiratory 24, currently he is 98% on 3 L oxygen via nasal cannula CBC is unremarkable except for mild anemia with hemoglobin 11.2. BMP is unremarkable with creatinine at baseline of 1.28. Baseline 1.2-1.5. LFTs unremarkable Urine analysis is unremarkable except for glucosuria. Troponin is elevated 0.1, 0.23, 0.21. ProBNP 29389 Influenza A and type B, RSV, SARS (coronavirus) are and detected EKG showing atrial flutter with a rate of 107 Chest x-ray showing evidence of CHF 07/06/2023 Today patient breathing is okay. He is on 2 L oxygen via nasal cannula which is his home dose. Patient states he has oxygen at home. No significant tachypnea or dyspnea or orthopnea while his line in bed. No leg edema or basilar crepitating Patient with no chest pain He remains on IV heparin and dual antiplatelet therapy of aspirin and Plavix. At home he was on liquids and DAPT with aspirin 81 mg and Plavix pt Is also on IV Lasix for which probably switch to oral dose today or tomorrow Her current complaint a 71, blood pressure was little the low side overnight while he was asleep with systolic around 90, currently improved systolic more than 100. Patient kept on metoprolol 25 mg which is increased from home twice daily to 3 times per day. Cartilage team were considering cardiac cath during this hospitalization 07/07/2023 Patient denies dyspnea. He is awake alert and states his back to his normal self. No chest pain no palpitation He remains on heparin drip and IV Lasix for his A. fib and acute CHF exacerbation His oxygen requirement actually back to baseline of 2 L/m with saturating 98%. No leg edema Remains on aspirin Plavix and heparin drip, he confirms to me at home he was taking aspirin Plavix and Eliquis for long time with prescription at home and he does not need anymore Patient is going for cardiac cath today 07/08/2023 Patients with acute CHF and hypoxia improved and currently room air with complication of A. fib and RVR with mildly elevated troponin secondary to above Patient underwent cardiac cath showing significant disease of the left anterior descending artery with plan for stent placement and later stage After the procedure Eliquis was resumed. IV Lasix was discontinued and patient was placed on normal saline at 25 mL/h Creatinine was 1.7 improved to 1.5 today which looks at baseline of chronic kidney disease stage III Patient currently on Plavix We'll defer to cardiology whether to resume aspirin 81 mg ago. Also patient was on torsemide 20 mg at home which is on hold for now Objective - Vital Signs Vital signs: Vital Signs Temp 97.9 F 07/08/23 18:11 Pulse 49 L 07/08/23 18:11 Resp 18 07/08/23 18:11 BP 111/65 07/08/23 18:11 Pulse Ox 100 07/08/23 18:11 FiO2 Intake & Output 07/07/23 07/08/23 07/08/23 18:59 06:59 18:59 Intake Total 292.754 100 884.845 Output Total 100 Balance 292.754 0 884.845 Intake: IV 700 Intake, IV Titration 72.754 184.845 Amount Heparin Sod,Pork in 0.45% 72.754 184.845 NaCl 25,000 unit In 0.45 % NaCl 1 250ml.bag @ 12 UNITS/KG/HR 8.818 mls/hr IV .Q24H [facility] Rx#: [id number] Oral 220 100 0 Output: Urine 100 Other: Voiding Method Bedside Commode Bedside Commode Bedside Commode Urinal Urinal Urinal - Exam GENERAL: The patient is alert and oriented x3, not in any acute distress. Well developed, well nourished. HEENT: Pupils are round and equally reacting to light. EOMI. No scleral icterus. No conjunctival pallor. Normocephalic, atraumatic. No pharyngeal erythema. No thyromegaly. CARDIOVASCULAR: S1 and S2 present. No murmurs, rubs, or gallops. PULMONARY: Chest is clear to auscultation, no wheezing , no crackles. ABDOMEN: Soft, nontender, nondistended, normoactive bowel sounds. No palpable organomegaly. MUSCULOSKELETAL: No joint swelling or deformity. EXTREMITIES: No cyanosis, clubbing, or pedal edema. NEUROLOGICAL: Gross neurological examination did not reveal any focal deficits. SKIN: No rashes. no petechiae. - Labs CBC & Chem 7: 07/06/23 16:23 07/08/23 07:50 Labs: Abnormal Lab Results - Last 24 Hours (Table) 07/07/23 07/08/23 07/08/23 Range/Units 20:17 07:50 07:50 APTT 52.8 H (22.0-30.0) sec Sodium 136 L (137-145) mmol/L BUN 32 H (9-20) mg/dL Creatinine 1.52 H (0.66-1.25) mg/dL Glucose 111 H (74-99) mg/dL POC Glucose (mg/dL) 166 H (70-110) mg/dL 07/08/23 Range/Units 17:21 APTT (22.0-30.0) sec Sodium (137-145) mmol/L BUN (9-20) mg/dL Creatinine (0.66-1.25) mg/dL Glucose (74-99) mg/dL POC Glucose (mg/dL) 114 H (70-110) mg/dL Assessment and Plan Assessment: A. fib and RVR Acute on chronic systolic CHF Elevated troponin most likely secondary to above, status post cardiac cath showing significant disease of the LAD planned for stent placement Acute hypoxic respiratory failure Chronic kidney disease stage III COPD no acute exacerbation Plan: IV Lasix 40 mg twice daily was discontinued and patient placed on normal saline 25 mL/h with close monitoring of creatinine Continue with Eliquis home dose of 2.5 mg while discontinue heparin drip Continue with aspirin 81 mg aspirin cartilage team. Also patient on home dose of Plavix Cardiology consult and pulmonary team consult Labs and medication were reviewed.. Continue same treatment. Continue with symptomatic treatment. Resume home medication. Monitor labs and vitals. DVT and GI prophylaxis. Further recommendations as per clinical course of the patient DVT prophylaxis: Subcutaneous heparin GI Prophylaxis: Pepcid PT/OT: Pending Prognosis is guarded
--- NOTE | 2023-07-08 23:10 | CC ---
CARDIAC CATHETERIZATION REPORT PROCEDURES: 1. PTCA and stenting of mid left anterior descending coronary artery with 2 drug- eluting stents. 2. PTCA of ostium of the left main with a 3.5 noncompliant balloon. 3. Intravascular ultrasound of the left main coronary artery. PERFORMED BY: Dr. Dina Mondragon. ANESTHESIA: Moderate conscious sedation time was 62 minutes. The patient was administered Versed. Oxygen saturation, hemodynamics and EKG were monitored closely. CLINICAL INFORMATION: The patient is an 83-year-old elderly gentleman with a chronic persistent atrial fibrillation, CAD with ischemic cardiomyopathy, ejection fraction of 35% to 40% range. He had stenting of left main in the setting of an acute anterior [place] performed in 2018 by me. Subsequently, 2 years later in 2019, I performed stenting of proximal RCA. Since then he has done well, but he came to the hospital with nondescript chest tightness, shortness of breath and also had troponin elevation and was in atrial fibrillation with rapid ventricular rate and mild congestive heart failure. After stabilizing heart failure Dr. Pat, his primary cigarette filter inspector, performed a cardiac cath from right radial approach which revealed that the left main and RCA were widely patent. Mid LAD had a 95% stenosis. This was a small caliber diffusely diseased vessel that ran all the way to the apex. He was advised intervention that was performed on the same day after waiting a couple of hours. PROCEDURE NOTE: The existing 6-Palestinian introducer in the right radial artery was used. I gave him additional verapamil and then proceeded to perform the procedure. A JL3.5 guide catheter was used to cannulate the left coronary artery. Cannulating it was somewhat difficult because of the stent in the ostium. A run-through wire was advanced and kept in the distal aspect of the LAD. I used a 2.0 caliber 15 mm long NC Trek balloon and pre-dilated the lesion. I had some difficulty advancing the balloon. I then tried to advance a 33 mm long Xience stent of 2.25 caliber, but I had a lot of difficulty. Guide support was inadequate. I then used the same guide catheter with a GuideLiner and I used a 15 mm long 2.25 caliber Xience stent and deployed this in the distal aspect of the lesion and then deployed another 18 mm long 2.25 caliber Xience stent telescoping into it proximally. Excellent angiographic result was achieved. I then performed PTCA of the ostium of the left main where there was a 3.25 caliber 12 mm long Xience stent placed in 2018. I used a 3.5 caliber 12 mm long NC Trek balloon and dilated the ostium. Excellent angiographic result was achieved. I also performed intravascular ultrasound and noted that the left main stent was fully expanded and well apposed. Excellent angiographic result was achieved. The patient received a total of 4500 units of heparin and his ACT was about 296. The sheath was taken out and TR band applied as per protocol. He received Plavix 600 mg orally and he will be on aspirin and Plavix for a short while and then he will be on Eliquis and Plavix combination uninterrupted for 1 year. Results were discussed with the in detail and he will be sent to the room in a stable condition. Excellent angiographic result without complication was achieved. MMODL / IJN: [id number] /
[2023-07-09 06:03] LABS: Glucose,Whole Blood 110 mg/dL (70-110)
[2023-07-09 08:29] VITALS: BMI 25.9
[2023-07-09 08:51] LABS: African American GFR (CKD) 48 (>60 ml/min/1.73 sqM); Anion Gap 7 mmol/L; Blood Urea Nitrogen 30 mg/dL (9-20); Calcium 9.9 mg/dL (8.4-10.2); Carbon Dioxide 23 mmol/L (22-30); Chloride 106 mmol/L (98-107); Glucose 135 mg/dL (74-99); Non-African American GFR(CKD) 41 (>60 ml/min/1.73 sqM); Potassium 4.1 mmol/L (3.5-5.1); Sodium 136 mmol/L (137-145)
[2023-07-09] MEDS: CLOPIDOGREL 75 MG TAB PO SCH (09:54)
[2023-07-09] MEDS: APIXABAN 2.5 MG TABLET PO SCH (09:54)
[2023-07-09 11:37] LABS: Glucose,Whole Blood 164 mg/dL (70-110)
--- NOTE | 2023-07-09 11:56 | P.PN ---
Subjective Progress Note Date: 07/09/23 I was asked to evaluate this patient regarding shortness of breath. The patient is known to have an extensive cardiac history with history of coronary artery disease, CHF and a reduced ejection fraction of 30 to 35% and he has chronic atrial fibrillation. The patient is also known to have peripheral v ascular disease. The patient presented to the hospital because of worsening shortness of breath and this has been progressively getting worse over the past 4 to 5 days prior to him coming into the hospital. Initially, in the ED, the patient was found to be in A-fib and RVR and his heart rate was quite tachycardic. He was in CHF exacerbation and was started on diuretics. He was placed on oxygen 2 L/min nasal cannula. He denies having any chest pain. His troponins were abnormal and the levels were 0.190.23 and 0.2 respectively x 3. His EKG showed atrial fibrillation with a right bundle branch block pattern. Chest x-ray showed CHF with pulm vessel congestion and bilateral pleural effusi on. His most recent echocardiogram from October 2021 revealed reduced left ventricular ejection fraction of 30 to 35% along with global LV hypokinesis, moderate MR, moderate TR and severe pulm hypertension. He has undergone also previous cardiac catheterization from November 2019 revealing a patent stent in the proximal LAD. The patient also had significant stenosis involving the proximal RCA and he underwent stenting of the proximal RCA by cardiology. The plan for now is to repeat his cardiac catheterization based on his abnormal troponins as the patient was diagnosed having an acute non-ST segment elevation myocardial infarction. Otherwise, he is doing well. He is BUN is a 31 with a creatinine of 1.69 and the patient is known to have chronic stage III kidney disease. He remains on IV heparin at this point in time. No history of smoking. No history of COPD or asthma. Nevertheless, the patient has a nebulizer at home and he has also oxygen at home that he uses on and off. On 07/08/2023, the patient is being seen for a follow-up. I saw this patient yesterday in consultation for shortness of breath and the patient was in CHF exacerbation. The patient also has chronic A-fib. The patient had some limited troponin leak. Echocardiogram showed an ejection fraction of 30 to 35%. The patient also had a cardiac catheterization that was done yesterday that showed 95% focal stenosis in the mid LAD, patent stent to left main and RCA and circumflex was nondominant and was free of any disease. The patient left ventricular diastolic pressure was 18 mmHg. The right coronary artery was dominant and the previous stent was essentially patent. The patient has underlying renal insufficiency. The only 15 cc of dye was used during the diagnostic catheter and the patient is going to undergo a subsequent stenting of the LAD. On today's evaluation, the BUN is a 32 to creatinine 1.5. Sodium is 136 and potassium level is at 4.2 and a serum bicarb is at 27. He is currently on room air oxygen. Has no specific complaints for now. Remains on IV heparin. On today's evaluation of 05/08/2024, I am seeing the patient for a follow-up. The patient is doing well. The patient has no specific complaints. The patient underwent a cardiac catheterization yesterday afternoon and the patient underwent PTCA and stenting of the mid LAD with 2 drug-eluting stents. PTCA of the ostium of the left main was also done. The patient is doing well. Clinically stable. Hemodynamically stable. Renal function continues to be stable with a creatinine of 1.5 with a BUN of 30 and a sodium levels at 136. The patient otherwise doing well. He remains on a combination of aspirin and Plavix. He remains on metoprolol 25 mg p.o. twice a day. At the same time, the patient remains bronchospastic and wheezy. He remains on DuoNeb updrafts. He remains on Perforomist and Pulmicort updrafts Objective - Vital Signs Vital signs: Vital Signs Temp 98.0 F 07/08/23 20:48 Pulse 86 07/09/23 09:29 Resp 16 07/09/23 04:42 BP 108/58 07/09/23 04:42 Pulse Ox 97 07/09/23 09:30 FiO2 Intake & Output 07/08/23 07/09/23 07/09/23 18:59 06:59 18:59 Intake Total 884.845 20 360 Output Total 300 Balance 884.845 -280 360 Weight 73.1 kg Intake: IV 700 20 Invasive Line 2 20 Intake, IV Titration 184.845 Amount Heparin Sod,Pork in 0.45% 184.845 NaCl 25,000 unit In 0.45 % NaCl 1 250ml.bag @ 12 UNITS/KG/HR 8.818 mls/hr IV .Q24H [facility] Rx#: [id number] Oral 0 360 Output: Urine 300 Other: Voiding Method Bedside Commode Bedside Commode Urinal Urinal - Exam General appearance the patient is calm and comfortable and currently on 2 L of oxygen nasal cannula Head exam was generally normal. There was no scleral icterus or corneal arcus. Mucous membranes were moist. Neck was supple and with jugular venous distension, thyromegaly, or carotid bruits. Carotids were easily palpable bilaterally. There was no adenopathy. Lung sounds are diminished bilaterally and the patient has diminished breath sound lung bases and scattered rales. Heart sounds are irregular consistent with atrial fibrillation. Systolic ejection murmur grade 3/6 also heard over the precordium. Abdominal exam revealed normal bowel sounds. The abdomen was soft, non-tender, and without masses, organomegaly, or appreciable enlargement of the abdominal aorta. Extremities reveal diminished pulses bilaterally and trace edema lower extremities. No cyanosis or clubbing. 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 Cranial nerves are essentially intact. - Labs CBC & Chem 7: 07/06/23 16:23 07/09/23 07:36 Labs: Abnormal Lab Results - Last 24 Hours (Table) 07/08/23 07/08/23 07/08/23 Range/Units 07:50 07:50 17:21 APTT 52.8 H (22.0-30.0) sec Sodium 136 L (137-145) mmol/L BUN 32 H (9-20) mg/dL Creatinine 1.52 H (0.66-1.25) mg/dL Glucose 111 H (74-99) mg/dL POC Glucose (mg/dL) 114 H (70-110) mg/dL 07/08/23 07/09/23 Range/Units 21:09 07:36 APTT (22.0-30.0) sec Sodium 136 L (137-145) mmol/L BUN 30 H (9-20) mg/dL Creatinine 1.54 H (0.66-1.25) mg/dL Glucose 135 H (74-99) mg/dL POC Glucose (mg/dL) 151 H (70-110) mg/dL Assessment and Plan Plan: Acute hypoxic respiratory failure secondary decompensated CHF and the patient is improved and the patient is currently on 2 L of oxygen by nasal cannula Acute non-ST segment elevation myocardial infarction, abnormal troponins, currently on IV heparin, cardiac catheterization was completed and further angioplasty is to follow.Based on the cardiac catheterization, the patient was found to have 95% focal mid LAD lesion and patent stent to left main and RCA. The patient underwent angioplasty and stenting of the LAD with insertion of 2 drug-eluting stent. The procedure was successful without any complications. Renal function remained stable with a creatinine of 1.5. Coronary artery disease with previous coronary intervention and stenting. Last cardiac catheterization was done in 2019 with patent stent to the LAD and the patient underwent stenting of the RCA CHF with reduced ejection fraction of 30 to 35%. proBNP level was elevated at time of admission at 16,400. The patient has had global LV dysfunction, moderate MR, moderate TR and severe pulm hypertension based on previous ec hocardiograms. 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 twice a day Stop the Cozaar for now Continue bronchodilators Gentle hydration Will continue to follow
--- NOTE | 2023-07-09 12:24 | P.PN ---
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 Patient follows in the office with Dr. Pat. We have been asked to see the patient in consultation for CHF, elevated troponins, and atrial fibrillation. Patient examined at the bedside in the emergency room. Patient states he presented to the hospital with a chief complaint of palpitations and shortness of breath. He states he has been present for the past 4 to 5 days. The patient was found to be in A-fib with RVR upon arrival to the hospital. He remains in atrial fibrillation with a heart rate around 120 at the time of examination. The patient was also started on IV Lasix secondary to CHF exacerbation. The patient is on 2 L nasal cannula maintaining oxygen saturations greater than 92%. The patient denies any chest pain or pressure. He reports improvement in his shortness of breath. He reports increased swelling to his left lower extremity and pain which he states has been present since his back surgery many years ago. The patient also reports he was hospitalized at the beginning of this year at [facility] due to congestive heart failure. DIAGNOSTICS: - EKG reveals atrial fibrillation with right bundle branch block. Heart rate 107. - Chest xray cardiomegaly, pulmonary vascular congestion and bilateral pleural effusions suggestive of moderate CHF - Laboratory data: WBC 8.2. Hemoglobin 11.2. Platelet count 182. Sodium 135. Potassium 3.9. BUN 18. Creatinine 1.27. Lactic acid 1.0. proBNP 16,400. Troponin 0.195. 0.239. 0.216. - Current home cardiac medications: None - Most recent echocardiogram obtained in October 2021 revealing ejection fraction 30 to 35%, global LV hypokinesis, moderate MR, moderate TR, severe pulmonary hypertension - Patient underwent Lexiscan stress test in July 2022 revealing partially reversible inferior wall defect with fixed apical perfusion defect - Cardiac catheterization history: November 2019 revealing patent stent within the left main that extends into the proximal LAD. Significant stenosis involving the proximal right coronary artery. The patient underwent stenting of the proximal RCA with a drug-eluting stent by Dr. Mondragon. 07/06/2023 Patient examined this morning at the bedside. He denies chest pain or pressure. He continues to report shortness of breath although improved from yesterday. He remains on IV Lasix. Labs from this morning are currently pending. He also remains on IV heparin. 2D echo is currently pending. Telemetry reveals atrial fibrillation with controlled ventricular rate. 07/07/2023 Patient examined this morning at the bedside. Patient denies any chest pain or pressure. He denies any shortness of breath. Patient was receiving IV Lasix. However this was discontinued secondary to worsening kidney function. Patient was initially scheduled for cardiac catheterization today. However due to scheduling issues, this will be rescheduled for tomorrow. 07/09/2023 Patient is status postcardiac catheterization with Dr. Pat. He is also status post stenting of mid LAD with 2 drug-eluting stents and PTCA of the ostium of the left main. Right radial site with pulse present. No hematoma. Patient examined this morning at the bedside. Patient denies chest pain or pressure. He denies shortness of breath. Vital signs are stable. PHYSICAL EXAM: VITAL SIGNS: Reviewed. GENERAL: Well-developed in no acute distress. HEENT: Head is normocephalic. Pupils are equal, round. Sclerae anicteric. Mucous membranes of the mouth are moist. Neck supple. No JVD LUNGS: Respirations even and unlabored. Lungs diminished bilaterally HEART: Irregular rate and rhythm. S1 and S2 heard. Systolic murmur noted. ABDOMEN: Soft. Nondistended. Nontender. EXTREMITIES: Normal range of motion. No clubbing or cyanosis. Peripheral pulses intact. Left lower extremity edema noted. NEUROLOGIC: Awake and alert. ASSESSMENT: Generalized weakness Acute on chronic heart failure with reduced EF 30 to 35%,, proBNP 16,400 NSTEMI, s/p cardiac catheterization with stenting of mid LAD with 2 drug-eluting stents and PTCA of the ostium of the left main Permanent atrial fibrillation with RVR Ischemic cardiomyopathy, ejection fraction 30 to 35% Coronary artery disease with previous stenting Hypertension Hyperlipidemia Peripheral arterial disease with previous amputation of toes on the right foot Valvular heart disease including moderate MR and TR Severe pulmonary hypertension PLAN: IV Lasix discontinued 07/07 secondary to worsening kidney function. May resume oral Demadex at discharge. Continue Eliquis and Plavix. Continue aspirin for today. Discontinue aspirin upon discharge per Dr. Mondragon Continue additional cardiac medications Continue to monitor patient for an additional 24 hours. Anticipate discharge home tomorrow Patient to follow-up postdischarge with Dr. Pat Nurse practitioner note has been reviewed by physician. Signing provider agrees with the documented findings, assessment, and plan of care documented by [employer] as a scribe. Objective - Vital Signs Vital signs: Vital Signs Temp 97.7 F 07/09/23 09:50 Pulse 74 07/09/23 09:50 Resp 16 07/09/23 09:50 BP 105/61 07/09/23 09:50 Pulse Ox 93 L 07/09/23 09:50 FiO2 Intake & Output 07/08/23 07/09/23 07/09/23 18:59 06:59 18:59 Intake Total 884.845 20 360 Output Total 300 Balance 884.845 -280 360 Weight 73.1 kg Intake: IV 700 20 Invasive Line 2 20 Intake, IV Titration 184.845 Amount Heparin Sod,Pork in 0.45% 184.845 NaCl 25,000 unit In 0.45 % NaCl 1 250ml.bag @ 12 UNITS/KG/HR 8.818 mls/hr IV .Q24H [facility] Rx#: [id number] Oral 0 360 Output: Urine 300 Other: Voiding Method Bedside Commode Bedside Commode Bedside Commode Urinal Urinal Urinal - Labs CBC & Chem 7: 07/06/23 16:23 07/09/23 07:36 Labs: Abnormal Lab Results - Last 24 Hours (Table) 07/08/23 07/08/23 07/09/23 Range/Units 17:21 21:09 07:36 Sodium 136 L (137-145) mmol/L BUN 30 H (9-20) mg/dL Creatinine 1.54 H (0.66-1.25) mg/dL Glucose 135 H (74-99) mg/dL POC Glucose (mg/dL) 114 H 151 H (70-110) mg/dL 07/09/23 Range/Units 11:36 Sodium (137-145) mmol/L BUN (9-20) mg/dL Creatinine (0.66-1.25) mg/dL Glucose (74-99) mg/dL POC Glucose (mg/dL) 164 H (70-110) mg/dL
[2023-07-09 16:14] LABS: Glucose,Whole Blood 147 mg/dL (70-110)
--- NOTE | 2023-07-09 17:39 | P.PN ---
Subjective This is a pleasant 83 years old male with past medical history of COPD, atrial fibrillation , chronic kidney disease stage III, diabetes mellitus, h ypertension, coronary artery disease, history of pulmonary embolism patient presents because of palpitation. Denies chest pain. Denies shortness of breath however patient was noticed little bit tachypneic and was breathing difficulties while he was talking. He denies abdominal pain vomiting or di arrhea. He has dry cough. He denies dysuria or urgency. No headaches or dizziness weakness or numbness. At baseline and he uses a walker He is not on home oxygen He denies smoking alcohol or illicit drugs He is hemodynamically stable. His tachycardic and tachypneic with heart rate 116, respiratory 24, currently he is 98% on 3 L oxygen via nasal cannula CBC is unremarkable except for mild anemia with hemoglobin 11.2. BMP is unremarkable with creatinine at baseline of 1.28. Baseline 1.2-1.5. LFTs unremarkable Urine analysis is unremarkable except for glucosuria. Troponin is elevated 0.1, 0.23, 0.21. ProBNP 86709 Influenza A and type B, RSV, SARS (coronavirus) are and detected EKG showing atrial flutter with a rate of 107 Chest x-ray showing evidence of CHF 07/06/2023 Today patient breathing is okay. He is on 2 L oxygen via nasal cannula which is his home dose. Patient states he has oxygen at home. No significant tachypnea or dyspnea or orthopnea while his line in bed. No leg edema or basilar crepitating Patient with no chest pain He remains on IV heparin and dual antiplatelet therapy of aspirin and Plavix. At home he was on liquids and DAPT with aspirin 81 mg and Plavix pt Is also on IV Lasix for which probably switch to oral dose today or tomorrow Her current complaint a 71, blood pressure was little the low side overnight while he was asleep with systolic around 90, currently improved systolic more than 100. Patient kept on metoprolol 25 mg which is increased from home twice daily to 3 times per day. Cartilage team were considering cardiac cath during this hospitalization 07/07/2023 Patient denies dyspnea. He is awake alert and states his back to his normal self. No chest pain no palpitation He remains on heparin drip and IV Lasix for his A. fib and acute CHF exacerbation His oxygen requirement actually back to baseline of 2 L/m with saturating 98%. No leg edema Remains on aspirin Plavix and heparin drip, he confirms to me at home he was taking aspirin Plavix and Eliquis for long time with prescription at home and he does not need anymore Patient is going for cardiac cath today 07/08/2023 Patients with acute CHF and hypoxia improved and currently room air with complication of A. fib and RVR with mildly elevated troponin secondary to above Patient underwent cardiac cath showing significant disease of the left anterior descending artery with plan for stent placement and later stage After the procedure Eliquis was resumed. IV Lasix was discontinued and patient was placed on normal saline at 25 mL/h Creatinine was 1.7 improved to 1.5 today which looks at baseline of chronic kidney disease stage III Patient currently on Plavix We'll defer to cardiology whether to resume aspirin 81 mg ago. Also patient was on torsemide 20 mg at home which is on hold for now 07/09/2023 pt is sitting at bed edge, awake and alert at baseline denies chest pain or dyspnea he is asking to home today pt is s/p cardiac cath yesterday and resumed his eliqis and DAPT keep monitoring for 24 hours pt refused rehab and wants to go home with [facility] , already ordered Objective - Vital Signs Vital signs: Vital Signs Temp 97 F L 07/09/23 12:50 Pulse 81 07/09/23 12:50 Resp 16 07/09/23 12:50 BP 104/51 07/09/23 12:50 Pulse Ox 94 L 07/09/23 12:50 FiO2 Intake & Output 07/08/23 07/09/23 07/09/23 18:59 06:59 18:59 Intake Total 884.845 20 480 Output Total 300 200 Balance 884.845 -280 280 Weight 73.1 kg Intake: IV 700 20 Invasive Line 2 20 Intake, IV Titration 184.845 Amount Heparin Sod,Pork in 0.45% 184.845 NaCl 25,000 unit In 0.45 % NaCl 1 250ml.bag @ 12 UNITS/KG/HR 8.818 mls/hr IV .Q24H [facility] Rx#: [id number] Oral 0 480 Output: Urine 300 200 Other: Voiding Method Bedside Commode Bedside Commode Bedside Commode Urinal Urinal Urinal # Voids 1 - Exam GENERAL: The patient is alert and oriented x3, not in any acute distress. Well developed, well nourished. HEENT: Pupils are round and equally reacting to light. EOMI. No scleral icterus. No conjunctival pallor. Normocephalic, atraumatic. No pharyngeal erythema. No thyromegaly. CARDIOVASCULAR: S1 and S2 present. No murmurs, rubs, or gallops. PULMONARY: Chest is clear to auscultation, no wheezing , no crackles. ABDOMEN: Soft, nontender, nondistended, normoactive bowel sounds. No palpable organomegaly. MUSCULOSKELETAL: No joint swelling or deformity. EXTREMITIES: No cyanosis, clubbing, or pedal edema. NEUROLOGICAL: Gross neurological examination did not reveal any focal deficits. SKIN: No rashes. no petechiae. - Labs CBC & Chem 7: 07/06/23 16:23 07/09/23 07:36 Labs: Abnormal Lab Results - Last 24 Hours (Table) 07/08/23 07/09/23 07/09/23 Range/Units 21:09 07:36 11:36 Sodium 136 L (137-145) mmol/L BUN 30 H (9-20) mg/dL Creatinine 1.54 H (0.66-1.25) mg/dL Glucose 135 H (74-99) mg/dL POC Glucose (mg/dL) 151 H 164 H (70-110) mg/dL 07/09/23 Range/Units 16:09 Sodium (137-145) mmol/L BUN (9-20) mg/dL Creatinine (0.66-1.25) mg/dL Glucose (74-99) mg/dL POC Glucose (mg/dL) 147 H (70-110) mg/dL Assessment and Plan Assessment: A. fib and RVR Acute on chronic systolic CHF Elevated troponin most likely secondary to above, status post cardiac cath showing significant disease of the LAD planned for stent placement Acute hypoxic respiratory failure Chronic kidney disease stage III COPD no acute exacerbation Plan: IV Lasix 40 mg twice daily was discontinued and patient placed on normal saline 25 mL/h with close monitoring of creatinine Continue with Eliquis home dose of 2.5 mg while discontinue heparin drip Continue with aspirin 81 mg aspirin cartilage team. Also patient on home dose of Plavix Cardiology consult and pulmonary team consult Labs and medication were reviewed.. Continue same treatment. Continue with symptomatic treatment. Resume home medication. Monitor labs and vitals. DVT and GI prophylaxis. Further recommendations as per clinical course of the patient DVT prophylaxis: Subcutaneous heparin GI Prophylaxis: Pepcid PT/OT: Pending Prognosis is guarded
[2023-07-09] MEDS: LOSARTAN 25 MG TAB PO SCH (20:08)
[2023-07-09 20:18] LABS: Glucose,Whole Blood 188 mg/dL (70-110)
[2023-07-10 06:30] LABS: Glucose,Whole Blood 154 mg/dL (70-110)
[2023-07-10 09:03] LABS: African American GFR (CKD) 55 (>60 ml/min/1.73 sqM); Anion Gap 2 mmol/L; Blood Urea Nitrogen 30 mg/dL (9-20); Calcium 10.5 mg/dL (8.4-10.2); Carbon Dioxide 28 mmol/L (22-30); Chloride 107 mmol/L (98-107); Glucose 155 mg/dL (74-99); Magnesium 1.8 mg/dL (1.6-2.3); Non-African American GFR(CKD) 47 (>60 ml/min/1.73 sqM); Potassium 4.4 mmol/L (3.5-5.1); Sodium 137 mmol/L (137-145)
--- NOTE | 2023-07-10 11:26 | P.PN ---
Subjective Progress Note Date: 07/10/23 I was asked to evaluate this patient regarding shortness of breath. The patient is known to have an extensive cardiac history with history of coronary artery disease, CHF and a reduced ejection fraction of 30 to 35% and he has chronic atrial fibrillation. The patient is also known to have peripheral v ascular disease. The patient presented to the hospital because of worsening shortness of breath and this has been progressively getting worse over the past 4 to 5 days prior to him coming into the hospital. Initially, in the ED, the patient was found to be in A-fib and RVR and his heart rate was quite tachycardic. He was in CHF exacerbation and was started on diuretics. He was placed on oxygen 2 L/min nasal cannula. He denies having any chest pain. His troponins were abnormal and the levels were 0.190.23 and 0.2 respectively x 3. His EKG showed atrial fibrillation with a right bundle branch block pattern. Chest x-ray showed CHF with pulm vessel congestion and bilateral pleural effusi on. His most recent echocardiogram from October 2021 revealed reduced left ventricular ejection fraction of 30 to 35% along with global LV hypokinesis, moderate MR, moderate TR and severe pulm hypertension. He has undergone also previous cardiac catheterization from November 2019 revealing a patent stent in the proximal LAD. The patient also had significant stenosis involving the proximal RCA and he underwent stenting of the proximal RCA by cardiology. The plan for now is to repeat his cardiac catheterization based on his abnormal troponins as the patient was diagnosed having an acute non-ST segment elevation myocardial infarction. Otherwise, he is doing well. He is BUN is a 31 with a creatinine of 1.69 and the patient is known to have chronic stage III kidney disease. He remains on IV heparin at this point in time. No history of smoking. No history of COPD or asthma. Nevertheless, the patient has a nebulizer at home and he has also oxygen at home that he uses on and off. On 07/08/2023, the patient is being seen for a follow-up. I saw this patient yesterday in consultation for shortness of breath and the patient was in CHF exacerbation. The patient also has chronic A-fib. The patient had some limited troponin leak. Echocardiogram showed an ejection fraction of 30 to 35%. The patient also had a cardiac catheterization that was done yesterday that showed 95% focal stenosis in the mid LAD, patent stent to left main and RCA and circumflex was nondominant and was free of any disease. The patient left ventricular diastolic pressure was 18 mmHg. The right coronary artery was dominant and the previous stent was essentially patent. The patient has underlying renal insufficiency. The only 15 cc of dye was used during the diagnostic catheter and the patient is going to undergo a subsequent stenting of the LAD. On today's evaluation, the BUN is a 32 to creatinine 1.5. Sodium is 136 and potassium level is at 4.2 and a serum bicarb is at 27. He is currently on room air oxygen. Has no specific complaints for now. Remains on IV heparin. On today's evaluation of 05/08/2024, I am seeing the patient for a follow-up. The patient is doing well. The patient has no specific complaints. The patient underwent a cardiac catheterization yesterday afternoon and the patient underwent PTCA and stenting of the mid LAD with 2 drug-eluting stents. PTCA of the ostium of the left main was also done. The patient is doing well. Clinically stable. Hemodynamically stable. Renal function continues to be stable with a creatinine of 1.5 with a BUN of 30 and a sodium levels at 136. The patient otherwise doing well. He remains on a combination of aspirin and Plavix. He remains on metoprolol 25 mg p.o. twice a day. At the same time, the patient remains bronchospastic and wheezy. He remains on DuoNeb updrafts. He remains on Perforomist and Pulmicort updrafts On today's evaluation of 07/10/2023, I am seeing the patient for a follow-up. Patient is doing well on 2 L of oxygen by nasal cannula. Still slightly bronchospastic and wheezy. No cough or sputum production. No chest pain. Patient is postcardiac catheterization and stenting of the LAD with 2 drug- eluting stents. Cardiac medications remain unchanged. Note that it was noted that the patient had rounds of wide-complex tachycardia. Based on my review of this was observed, these are A-fib with aberrancy. I asked the nursing staff to those findings with the cold roll inspector and consider anticoagulation. The patient remains on aspirin and Plavix at this point in time. Objective - Vital Signs Vital signs: Vital Signs Temp 97.5 F L 07/10/23 08:32 Pulse 80 07/10/23 08:32 Resp 18 02/10/24 08:32 BP 114/65 07/10/23 08:32 Pulse Ox 97 07/10/23 08:32 FiO2 Intake & Output 07/09/23 07/10/23 07/10/23 18:59 06:59 18:59 Intake Total 480 120 Output Total 200 550 Balance 280 -550 120 Weight 73.1 kg 73 kg Intake: Oral 480 120 Output: Urine 200 550 Other: Voiding Method Bedside Commode Bedside Commode Urinal Urinal # Voids 1 1 1 # Bowel Movements 1 1 - Exam General appearance the patient is calm and comfortable and currently on 2 L of oxygen nasal cannula Head exam was generally normal. There was no scleral icterus or corneal arcus. Mucous membranes were moist. Neck was supple and with jugular venous distension, thyromegaly, or carotid bruits. Carotids were easily palpable bilaterally. There was no adenopathy. Lung sounds are diminished bilaterally and the patient has diminished breath sound lung bases and scattered rales. Heart sounds are irregular consistent with atrial fibrillation. Systolic ej ection murmur grade 3/6 also heard over the precordium. Abdominal exam revealed normal bowel sounds. The abdomen was soft, non-tender, and without masses, organomegaly, or appreciable enlargement of the abdominal aorta. Extremities reveal diminished pulses bilaterally and trace edema lower extremiti es. No cyanosis or clubbing. 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 Cranial nerves are essentially intact. - Labs CBC & Chem 7: 07/06/23 16:23 07/10/23 08:31 Labs: Abnormal Lab Results - Last 24 Hours (Table) 07/09/23 07/09/23 07/09/23 Range/Units 07:36 11:36 16:09 Sodium 136 L (137-145) mmol/L BUN 30 H (9-20) mg/dL Creatinine 1.54 H (0.66-1.25) mg/dL Glucose 135 H (74-99) mg/dL POC Glucose (mg/dL) 164 H 147 H (70-110) mg/dL 07/09/23 07/10/23 Range/Units 20:16 06:29 Sodium (137-145) mmol/L BUN (9-20) mg/dL Creatinine (0.66-1.25) mg/dL Glucose (74-99) mg/dL POC Glucose (mg/dL) 188 H 154 H (70-110) mg/dL Assessment and Plan Plan: Acute hypoxic respiratory failure secondary decompensated CHF and the patient is improved and the patient is currently on 2 L of oxygen by nasal cannula Acute non-ST segment elevation myocardial infarction, abnormal troponins, currently on IV heparin, cardiac catheterization was completed and further angioplasty is to follow.Based on the cardiac catheterization, the patient was found to have 95% focal mid LAD lesion and patent stent to left main and RCA. The patient underwent angioplasty and stenting of the LAD with insertion of 2 drug-eluting stent. The procedure was successful without any complications. Renal function is improving and the creatinine is down to 1.3 Short runs of A-fib with aberrancy Coronary artery disease with previous coronary intervention and stenting. Last cardiac catheterization was done in 2019 with patent stent to the LAD and the patient underwent stenting of the RCA CHF with reduced ejection fraction of 30 to 35%. proBNP level was elevated at time of admission at 16,400. The patient has had global LV dysfunction, moderate MR, moderate TR and severe pulm hypertension based on previous echocardiograms. Chronic atrial fibrillation with RVR at time of admission, heart rate is under better control at this point in time Peripheral vascular disease with previous amputation of the toes of the right foot Valvular heart disease with moderate MR and TR and severe pulmonary hypertension Hypertension Hyperlipidemia Chronic stage III kidney disease Diverticulosis Previous history of GI bleed Hypothyroidism Acid reflux Previous history of DVT Plan Titrate oxygen flow to maintain saturation above 90%, currently the patient is is on 2 L of oxygen by nasal cannula, the patient has home O2 Creatinine is improving and the creatinine is down to 1.37 Patient is having short runs of A-fib with aberrancy and the patient will be started on anticoagulation Renal function is improving the creatinine is down to 1.37 Continue aspirin and Plavix has been discontinued Continue metoprolol 25 mg p.o. twice a day Continue bronchodilators Gentle hydration Will continue to follow
[2023-07-10 11:30] LABS: Glucose,Whole Blood 190 mg/dL (70-110)
--- NOTE | 2023-07-10 14:44 | P.PN ---
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 Patient follows in the office with Dr. Pat. We have been asked to see the patient in consultation for CHF, elevated troponins, and atrial fibrillation. Patient examined at the bedside in the emergency room. Patient states he presented to the hospital with a chief complaint of palpitations and shortness of breath. He states he has been present for the past 4 to 5 days. The patient was found to be in A-fib with RVR upon arrival to the hospital. He remains in atrial fibrillation with a heart rate around 120 at the time of examination. The patient was also started on IV Lasix secondary to CHF exacerbation. The patient is on 2 L nasal cannula maintaining oxygen saturations greater than 92%. The patient denies any chest pain or pressure. He reports improvement in his shortness of breath. He reports increased swelling to his left lower extremity and pain which he states has been present since his back surgery many years ago. The patient also reports he was hospitalized at the beginning of this year at [facility] due to congestive heart failure. DIAGNOSTICS: - EKG reveals atrial fibrillation with right bundle branch block. Heart rate 107. - Chest xray cardiomegaly, pulmonary vascular congestion and bilateral pleural effusions suggestive of moderate CHF - Laboratory data: WBC 8.2. Hemoglobin 11.2. Platelet count 182. Sodium 135. Potassium 3.9. BUN 18. Creatinine 1.27. Lactic acid 1.0. proBNP 16,400. Troponin 0.195. 0.239. 0.216. - Current home cardiac medications: None - Most recent echocardiogram obtained in October 2021 revealing ejection fraction 30 to 35%, global LV hypokinesis, moderate MR, moderate TR, severe pulmonary hypertension - Patient underwent Lexiscan stress test in July 2022 revealing partially reversible inferior wall defect with fixed apical perfusion defect - Cardiac catheterization history: November 2019 revealing patent stent within the left main that extends into the proximal LAD. Significant stenosis involving the proximal right coronary artery. The patient underwent stenting of the proximal RCA with a drug-eluting stent by Dr. Mondragon. 07/06/2023 Patient examined this morning at the bedside. He denies chest pain or pressure. He continues to report shortness of breath although improved from yesterday. He remains on IV Lasix. Labs from this morning are currently pending. He also remains on IV heparin. 2D echo is currently pending. Telemetry reveals atrial fibrillation with controlled ventricular rate. 07/07/2023 Patient examined this morning at the bedside. Patient denies any chest pain or pressure. He denies any shortness of breath. Patient was receiving IV Lasix. However this was discontinued secondary to worsening kidney function. Patient was initially scheduled for cardiac catheterization today. However due to scheduling issues, this will be rescheduled for tomorrow. 07/09/2023 Patient is status postcardiac catheterization with Dr. Pat. He is also status post stenting of mid LAD with 2 drug-eluting stents and PTCA of the ostium of the left main. Right radial site with pulse present. No hematoma. Patient examined this morning at the bedside. Patient denies chest pain or pressure. He denies shortness of breath. Vital signs are stable. 07/10/2023 Pt seen and examined sitting up in bed in no acute distress. He denies chest pain/pressure, shortness of breath, dizziness or palpitations. Blood pressure 134/72 heart rate 68 afebrile maintaining oxygen saturation on nasal cannula. Laboratory data reviewed, sodium 137, potassium 4.4, creatinine 1.37 magnesium 1.8. PHYSICAL EXAM: VITAL SIGNS: Reviewed. GENERAL: Well-developed in no acute distress. HEENT: Head is normocephalic. Pupils are equal, round. Sclerae anicteric. Mucous membranes of the mouth are moist. Neck supple. No JVD LUNGS: Respirations even and unlabored. Lungs diminished bilaterally HEART: Irregular rate and rhythm. S1 and S2 heard. Systolic murmur noted. ABDOMEN: Soft. Nondistended. Nontender. EXTREMITIES: Normal range of motion. No clubbing or cyanosis. Peripheral pulses intact. Left lower extremity edema noted. NEUROLOGIC: Awake and alert. ASSESSMENT: Generalized weakness Acute on chronic heart failure with reduced EF 30 to 35%,, proBNP 16,400 NSTEMI, s/p cardiac catheterization with stenting of mid LAD with 2 drug-eluting stents and PTCA of the ostium of the left main Permanent atrial fibrillation with RVR Ischemic cardiomyopathy, ejection fraction 30 to 35% Coronary artery disease with previous stenting Hypertension Hyperlipidemia Peripheral arterial disease with previous amputation of toes on the right foot Valvular heart disease including moderate MR and TR Severe pulmonary hypertension PLAN: Stable for discharge from a cardiac perspective. Continue aspirin for one week and then he may discontinue and continue only a liquid and Plavix. Patient to follow-up postdischarge with Dr. Pat Nurse practitioner note has been reviewed by physician. Signing provider agrees with the documented findings, assessment, and plan of care documented by COOPERATIVE MANAGER as a scribe. Objective - Vital Signs Vital signs: Vital Signs Temp 97.5 F L 07/10/23 08:32 Pulse 80 07/10/23 08:34 Resp 18 07/10/23 08:34 BP 114/65 07/10/23 08:32 Pulse Ox 97 07/10/23 08:32 FiO2 Intake & Output 07/09/23 07/10/23 07/10/23 18:59 06:59 18:59 Intake Total 480 120 Output Total 200 550 Balance 280 -550 120 Weight 73.1 kg 73 kg Intake: Oral 480 120 Output: Urine 200 550 Other: Voiding Method Bedside Commode Bedside Commode Bedside Commode Urinal Urinal Urinal # Voids 1 1 1 # Bowel Movements 1 1 - Labs CBC & Chem 7: 07/06/23 16:23 07/10/23 08:31 Labs: Abnormal Lab Results - Last 24 Hours (Table) 07/09/23 07/09/23 07/09/23 Range/Units 11:36 16:09 20:16 BUN (9-20) mg/dL Creatinine (0.66-1.25) mg/dL Glucose (74-99) mg/dL POC Glucose (mg/dL) 164 H 147 H 188 H (70-110) mg/dL Calcium (8.4-10.2) mg/dL 07/10/23 07/10/23 Range/Units 06:29 08:31 BUN 30 H (9-20) mg/dL Creatinine 1.37 H (0.66-1.25) mg/dL Glucose 155 H (74-99) mg/dL POC Glucose (mg/dL) 154 H (70-110) mg/dL Calcium 10.5 H (8.4-10.2) mg/dL
[2023-07-10 16:23] LABS: Glucose,Whole Blood 171 mg/dL (70-110)
--- NOTE | 2023-07-10 17:43 | P.DS ---
Providers Date of admission: 07/04/23 23:10 Attending physician: Danny Sanchez MD Consults: 07/04/23 23:07 Consult Physician Urgent Consulting Provider: Ramón Mondragon Consult Reason/Comments: Rapid atrial fibrillation, CHF, NSTEMI with elevated troponin Do you want consulting provider notified?: Yes 07/07/23 09:21 Consult Physician Routine Consulting Provider: José Manuel Shaw Consult Reason/Comments: COPD Do you want consulting provider notified?: Yes Primary care physician: [facility] Hospital Course: Diagnoses: A. fib and RVR Acute on chronic systolic CHF Elevated troponin most likely secondary to above, status post cardiac cath showing significant disease of the LAD planned for stent placement Acute hypoxic respiratory failure Chronic kidney disease stage III COPD no acute exacerbation Hospital course: This is a pleasant 83 years old male with past medical history of COPD, atrial fibrillation , chronic kidney disease stage III, diabetes mellitus, hypertension, coronary artery disease, history of pulmonary embolism patient presents because of palpitation. Denies chest pain. Denies shortness of breath however patient was noticed little bit tachypneic and was breathing d ifficulties while he was talking. He was diagnosed with acute systolic CHF with decreased ejection fraction at 30-35%, he underwent cardiac cath with PCI to LAD. After the procedure patient's resumed his Eliquis at home dose of 2.5 mg as well as aspirin and Plavix. He was taking these 3 medication for a while with no problems however ornamental iron worker apprentice wants him to continue taking aspirin 1 week and then stop aspirin and continue with Plavix and Eliquis, I talked to the patient about these recommendations and he verbalized understanding and acceptance and he said it back to me. Patient has all his prescription and he does not need anymore. He denies chest pain or dyspnea upon discharge His creatinine improved down to 1.3 from 1.5-1.7 on admission. He has chronic kidney disease with baseline creatinine 1.2-1.5 Patient denies any other symptoms and he is eager to go home today (he has hard time getting hold of his for transportation and he might need to stay until tomorrow for transportation) Patient was cleared for discharge by ornamental iron worker apprentice Problems and management plan were discussed with the patient and he verbalized understanding and acceptance Patient was found stable and can be discharged home in guarded prognosis however he needs follow-up as an outpatient. Patient was instructed to follow up with PCP Dr. samano within one week and patient agrees Patient was instructed to follow up with Dr. Pat and one week after discharge and perinatal director Dr. Shaw in 3-4 weeks after discharge Physical exam Gen: patient is a AAOx3, no distress CVS: S1-S2, RRR, no murmur Lungs: B/L CTA, no wheezing Abdomen: soft, no distention, no tenderness, positive bowel sounds Extremity: no leg edema or induration Time spent more than 35 minutes Patient Condition at Discharge: Fair Plan - Discharge Summary Discharge Rx Participant: No New Discharge Prescriptions: New Nitroglycerin Sl Tabs [Nitrostat] 0.4 mg SUBLINGUAL Q5M PRN #100 tab PRN Reason: Chest Pain Aspirin 81 mg PO DAILY 7 Days #7 tab Losartan [Cozaar] 25 mg PO HS #90 tab Continue Multivitamins, Thera [Multivitamin (formulary)] 1 tab PO DAILY Linagliptin [Tradjenta] 5 mg PO DAILY Potassium Chloride [Klor-Con M20] 20 meq PO DAILY Pantoprazole [Protonix] 40 mg PO DAILY Montelukast [Singulair] 10 mg PO HS Metoprolol Tartrate [Lopressor] 25 mg PO BID Tamsulosin HCl [Flomax] 0.4 mg PO DAILY Folic Acid 1 mg PO DAILY Cyclobenzaprine [Flexeril] 5 mg PO BID PRN PRN Reason: Muscle Spasm Clopidogrel [Plavix] 75 mg PO DAILY calcitrioL [Rocaltrol] 0.5 mcg PO DAILY Budesonide [Pulmicort] 0.5 mg INHALATION RT-BID Atorvastatin [Lipitor] 80 mg PO DAILY Torsemide [Demadex] 20 mg PO DAILY Levothyroxine Sodium [Synthroid] 150 mcg PO DAILY Insulin Glargine,Hum.rec.anlog [Toujeo Max Solostar] 26 units SQ DAILY Ipratropium-Albuterol Nebulize [Duoneb 0.5 mg-3 mg/3 ml Soln] 3 ml INHALATION RT-QID Escitalopram [Lexapro] 20 mg PO DAILY Apixaban [Eliquis] 2.5 mg PO BID Empagliflozin [Jardiance] 10 mg PO DAILY Discontinued Aspirin 81 mg PO DAILY Digoxin [Digitek] 125 mcg PO Q2D Discharge Medication List Apixaban [Eliquis] 2.5 mg PO BID 07/05/23 [History] Atorvastatin [Lipitor] 80 mg PO DAILY 07/05/23 [History] Budesonide [Pulmicort] 0.5 mg INHALATION RT-BID 07/05/23 [History] Clopidogrel [Plavix] 75 mg PO DAILY 07/05/23 [History] Cyclobenzaprine [Flexeril] 5 mg PO BID PRN 07/05/23 [History] Empagliflozin [Jardiance] 10 mg PO DAILY 07/05/23 [History] Escitalopram [Lexapro] 20 mg PO DAILY 07/05/23 [History] Folic Acid 1 mg PO DAILY 07/05/23 [History] Insulin Glargine,Hum.rec.anlog [Toujeo Max Solostar] 26 units SQ DAILY 07/05/23 [History] Ipratropium-Albuterol Nebulize [Duoneb 0.5 mg-3 mg/3 ml Soln] 3 ml INHALATION RT-QID 07/05/23 [History] Levothyroxine Sodium [Synthroid] 150 mcg PO DAILY 07/05/23 [History] Linagliptin [Tradjenta] 5 mg PO DAILY 07/05/23 [History] Metoprolol Tartrate [Lopressor] 25 mg PO BID 07/05/23 [History] Montelukast [Singulair] 10 mg PO HS 07/05/23 [History] Multivitamins, Thera [Multivitamin (formulary)] 1 tab PO DAILY 07/05/23 [History] Pantoprazole [Protonix] 40 mg PO DAILY 07/05/23 [History] Potassium Chloride [Klor-Con M20] 20 meq PO DAILY 07/05/23 [History] Tamsulosin HCl [Flomax] 0.4 mg PO DAILY 07/05/23 [History] Torsemide [Demadex] 20 mg PO DAILY 07/05/23 [History] calcitrioL [Rocaltrol] 0.5 mcg PO DAILY 07/05/23 [History] Losartan [Cozaar] 25 mg PO HS #90 tab 07/09/23 [Rx] Nitroglycerin Sl Tabs [Nitrostat] 0.4 mg SUBLINGUAL Q5M PRN #100 tab 02/09/24 [Rx] Aspirin 81 mg PO DAILY 7 Days #7 tab 07/10/23 [Rx] Follow up Appointment(s)/Referral(s): Ronnie Sharma MD [Primary Care Provider] - 1-2 days Rainer Pat MD [STAFF PHYSICIAN] - 1 Week Activity/Diet/Wound Care/Special Instructions: heat healthy diet activity is restricted till you see your doctor we recommend to continue with your aspirin for 1 week only , after the end of the week stop aspirin continue with eliquis and plavix all the time please Discharge Disposition: HOME WITH HOME HEALTH SERVICES
[2023-07-10 20:17] LABS: Glucose,Whole Blood 162 mg/dL (70-110)
[2023-07-11 06:19] LABS: Glucose,Whole Blood 133 mg/dL (70-110)
[2023-07-11 11:34] LABS: Glucose,Whole Blood 147 mg/dL (70-110)
[2023-07-11 13:39] VITALS: BP 101/66; PULSE 74; RESP 17; TEMP 97.5
--- NOTE | 2023-07-11 13:39 | P.PN ---
Subjective Progress Note Date: 07/11/23 I was asked to evaluate this patient regarding shortness of breath. The patient is known to have an extensive cardiac history with history of coronary artery disease, CHF and a reduced ejection fraction of 30 to 35% and he has chronic atrial fibrillation. The patient is also known to have peripheral v ascular disease. The patient presented to the hospital because of worsening shortness of breath and this has been progressively getting worse over the past 4 to 5 days prior to him coming into the hospital. Initially, in the ED, the patient was found to be in A-fib and RVR and his heart rate was quite tachycardic. He was in CHF exacerbation and was started on diuretics. He was placed on oxygen 2 L/min nasal cannula. He denies having any chest pain. His troponins were abnormal and the levels were 0.190.23 and 0.2 respectively x 3. His EKG showed atrial fibrillation with a right bundle branch block pattern. Chest x-ray showed CHF with pulm vessel congestion and bilateral pleural effusi on. His most recent echocardiogram from October 2021 revealed reduced left ventricular ejection fraction of 30 to 35% along with global LV hypokinesis, moderate MR, moderate TR and severe pulm hypertension. He has undergone also previous cardiac catheterization from November 2019 revealing a patent stent in the proximal LAD. The patient also had significant stenosis involving the proximal RCA and he underwent stenting of the proximal RCA by cardiology. The plan for now is to repeat his cardiac catheterization based on his abnormal troponins as the patient was diagnosed having an acute non-ST segment elevation myocardial infarction. Otherwise, he is doing well. He is BUN is a 31 with a creatinine of 1.69 and the patient is known to have chronic stage III kidney disease. He remains on IV heparin at this point in time. No history of smoking. No history of COPD or asthma. Nevertheless, the patient has a nebulizer at home and he has also oxygen at home that he uses on and off. On 07/08/2023, the patient is being seen for a follow-up. I saw this patient yesterday in consultation for shortness of breath and the patient was in CHF exacerbation. The patient also has chronic A-fib. The patient had some limited troponin leak. Echocardiogram showed an ejection fraction of 30 to 35%. The patient also had a cardiac catheterization that was done yesterday that showed 95% focal stenosis in the mid LAD, patent stent to left main and RCA and circumflex was nondominant and was free of any disease. The patient left ventricular diastolic pressure was 18 mmHg. The right coronary artery was dominant and the previous stent was essentially patent. The patient has underlying renal insufficiency. The only 15 cc of dye was used during the diagnostic catheter and the patient is going to undergo a subsequent stenting of the LAD. On today's evaluation, the BUN is a 32 to creatinine 1.5. Sodium is 136 and potassium level is at 4.2 and a serum bicarb is at 27. He is currently on room air oxygen. Has no specific complaints for now. Remains on IV heparin. On today's evaluation of 05/08/2024, I am seeing the patient for a follow-up. The patient is doing well. The patient has no specific complaints. The patient underwent a cardiac catheterization yesterday afternoon and the patient underwent PTCA and stenting of the mid LAD with 2 drug-eluting stents. PTCA of the ostium of the left main was also done. The patient is doing well. Clinically stable. Hemodynamically stable. Renal function continues to be stable with a creatinine of 1.5 with a BUN of 30 and a sodium levels at 136. The patient otherwise doing well. He remains on a combination of aspirin and Plavix. He remains on metoprolol 25 mg p.o. twice a day. At the same time, the patient remains bronchospastic and wheezy. He remains on DuoNeb updrafts. He remains on Perforomist and Pulmicort updrafts On today's evaluation of 07/10/2023, I am seeing the patient for a follow-up. Patient is doing well on 2 L of oxygen by nasal cannula. Still slightly bronchospastic and wheezy. No cough or sputum production. No chest pain. Patient is postcardiac catheterization and stenting of the LAD with 2 drug- eluting stents. Cardiac medications remain unchanged. Note that it was noted that the patient had rounds of wide-complex tachycardia. Based on my review of this was observed, these are A-fib with aberrancy. I asked the nursing staff to those findings with the vault worker and consider anticoagulation. The patient remains on aspirin and Plavix at this point in time. 07/11/2023, the patient is resting comfortably in bed. No specific complaints. Remains on 2 L of oxygen by nasal cannula. The patient is also on a combination of aspirin and Plavix and anticoagulation with Eliquis. The patient has no new complaints and the patient is resting comfortably in bed. As mentioned earlier, the patient had an acute non-ST segment elevation myocardial infarction and the patient underwent stenting of the mid LAD with 2 drug-eluting stents and the patient also underwent a PTCA of the ostium of the left main. Left ventricular ejection fraction is reduced at 30 to 35%. No overt signs of heart failure at this point in time. The patient free of any chest pain. The patient has Had no new labs for today. Most recent creatinine from yesterday was at 1.37. The patient otherwise remains on metoprolol 25 mg twice a day. The patient is also on Cozaar. Objective - Vital Signs Vital signs: Vital Signs Temp 98.1 F 07/11/23 07:48 Pulse 88 07/11/23 08:50 Resp 19 07/11/23 07:48 BP 128/76 07/11/23 07:48 Pulse Ox 96 07/11/23 08:40 FiO2 Intake & Output 07/10/23 07/11/23 07/11/23 18:59 06:59 18:59 Intake Total 360 Output Total 350 Balance 360 -350 Weight 73 kg Intake: Oral 360 Output: Urine 350 Other: Voiding Method Bedside Commode Bedside Commode Urinal Urinal # Voids 1 # Bowel Movements 1 - Exam General appearance the patient is calm and comfortable and currently on 2 L of oxygen nasal cannula Head exam was generally normal. There was no scleral icterus or corneal arcus. Mucous membranes were moist. Neck was supple and with jugular venous distension, thyromegaly, or carotid bru its. Carotids were easily palpable bilaterally. There was no adenopathy. Lung sounds are diminished bilaterally and the patient has diminished breath sound lung bases and scattered rales. Heart sounds are irregular consistent with atrial fibrillation. Systolic ejection murmur grade 3/6 also heard over the precordium. Abdominal exam revealed normal bowel sounds. The abdomen was soft, non-tender, a nd without masses, organomegaly, or appreciable enlargement of the abdominal aorta. Extremities reveal diminished pulses bilaterally and trace edema lower extremities. No cyanosis or clubbing. 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 Cranial nerves are essentially intact. - Labs CBC & Chem 7: 07/06/23 16:23 07/10/23 08:31 Labs: Abnormal Lab Results - Last 24 Hours (Table) 07/10/23 07/10/23 07/10/23 Range/Units 11:29 16:21 20:16 POC Glucose (mg/dL) 190 H 171 H 162 H (70-110) mg/dL 07/11/23 Range/Units 06:17 POC Glucose (mg/dL) 133 H (70-110) mg/dL Assessment and Plan Plan: Acute hypoxic respiratory failure secondary decompensated CHF and the patient is improved and the patient is currently on 2 L of oxygen by nasal cannula Acute non-ST segment elevation myocardial infarction, abnormal troponins, curren tly on IV heparin, cardiac catheterization was completed and further angioplasty is to follow.Based on the cardiac catheterization, the patient was found to have 95% focal mid LAD lesion and patent stent to left main and RCA. The patient underwent angioplasty and stenting of the LAD with insertion of 2 drug-eluting stent. The procedure was successful without any complications. Renal function is improving and the creatinine is down to 1.3 Short runs of A-fib with aberrancy Coronary artery disease with previous coronary intervention and stenting. Last cardiac catheterization was done in 2019 with patent stent to the LAD and the patient underwent stenting of the RCA CHF with reduced ejection fraction of 30 to 35%. proBNP level was elevated at time of admission at 16,400. The patient has had global LV dysfunction, moderate MR, moderate TR and severe pulm hypertension based on previous echocardiograms. Chronic atrial fibrillation with RVR at time of admission, heart rate is under better control at this point in time Peripheral vascular disease with previous amputation of the toes of the right foot Valvular heart disease with moderate MR and TR and severe pulmonary hypertension Hypertension Hyperlipidemia Chronic stage III kidney disease Diverticulosis Previous history of GI bleed Hypothyroidism Acid reflux Previous history of DVT Plan Overall pulmonary status remained stable and the patient has no significant respiratory difficulties. No overt signs of heart failure Titrate oxygen flow to maintain saturation above 90%, currently the patient is is on 2 L of oxygen by nasal cannula, the patient has home O2 Creatinine is improving and the creatinine is down to 1.37, this is from yesterday Patient is having short runs of A-fib with aberrancy and the patient will be started on anticoagulation Renal function is improving the creatinine is down to 1.37 Continue aspirin and Plavix has been discontinued Continue metoprolol 25 mg p.o. twice a day Cozaar 25 mg at bedtime Continue bronchodilators Gentle hydration Will continue to follow
--- NOTE | 2023-07-11 14:01 | P.DS ---
Providers Date of admission: 07/04/23 23:10 Attending physician: Danny Sanchez MD Consults: 07/04/23 23:07 Consult Physician Urgent Consulting Provider: Ramón Mondragon Consult Reason/Comments: Rapid atrial fibrillation, CHF, NSTEMI with elevated troponin Do you want consulting provider notified?: Yes 07/07/23 09:21 Consult Physician Routine Consulting Provider: José Manuel Shaw Consult Reason/Comments: COPD Do you want consulting provider notified?: Yes Primary care physician: [facility] Course: Diagnoses: A. fib and RVR Acute on chronic systolic CHF Elevated troponin most likely secondary to above, status post cardiac cath showing significant disease of the LAD planned for stent placement Acute hypoxic respiratory failure Chronic kidney disease stage III COPD no acute exacerbation Hospital course: This is a pleasant 83 years old male with past medical history of COPD, atrial fibrillation , chronic kidney disease stage III, diabetes mellitus, hypertension, coronary artery disease, history of pulmonary embolism patient presents because of palpitation. Denies chest pain. Denies shortness of breath however patient was noticed little bit tachypneic and was breathing difficulties while he was talking. He was diagnosed with acute systolic CHF with decreased ejection fraction at 30-35%, he underwent cardiac cath with PCI to LAD. After the procedure patient's resumed his Eliquis at home dose of 2.5 mg as well as aspirin and Plavix. He was taking these 3 medication for a while with no problems however electrical automation engineer wants him to continue taking aspirin 1 week and then stop aspirin and continue with Plavix and Eliquis, I talked to the patient about these recommendations and he verbalized understanding and acceptance and he said it back to me. Patient has all his prescription and he does not need anymore. He denies chest pain or dyspnea upon discharge His creatinine improved down to 1.3 from 1.5-1.7 on admission. He has chronic kidney disease with baseline creatinine 1.2-1.5 Patient denies any other symptoms and he is eager to go home today (he has hard time getting hold of his for transportation and he might need to stay until tomorrow for transportation) Patient was cleared for discharge by electrical automation engineer Problems and management plan were discussed with the patient and he verbalized understanding and acceptance Patient was found stable and can be discharged home in guarded prognosis however he needs follow-up as an outpatient. Patient was instructed to follow up with PCP Dr. samano within one week and patient agrees Patient was instructed to follow up with Dr. Pat and one week after discharge and environmental advisor Dr. Shaw in 3-4 weeks after discharge Physical exam Gen: patient is a AAOx3, no distress CVS: S1-S2, RRR, no murmur Lungs: B/L CTA, no wheezing Abdomen: soft, no distention, no tenderness, positive bowel sounds Extremity: no leg edema or induration Time spent more than 35 minutes Patient Condition at Discharge: Fair Plan - Discharge Summary Discharge Rx Participant: No New Discharge Prescriptions: New Nitroglycerin Sl Tabs [Nitrostat] 0.4 mg SUBLINGUAL Q5M PRN #100 tab PRN Reason: Chest Pain Aspirin 81 mg PO DAILY 7 Days #7 tab Albuterol Inhaler [Ventolin Hfa Inhaler] 2 puff INHALATION QID #8 gm Losartan [Cozaar] 25 mg PO HS #90 tab Continue Multivitamins, Thera [Multivitamin (formulary)] 1 tab PO DAILY Linagliptin [Tradjenta] 5 mg PO DAILY Potassium Chloride [Klor-Con M20] 20 meq PO DAILY Pantoprazole [Protonix] 40 mg PO DAILY Montelukast [Singulair] 10 mg PO HS Metoprolol Tartrate [Lopressor] 25 mg PO BID Tamsulosin HCl [Flomax] 0.4 mg PO DAILY Folic Acid 1 mg PO DAILY Cyclobenzaprine [Flexeril] 5 mg PO BID PRN PRN Reason: Muscle Spasm Clopidogrel [Plavix] 75 mg PO DAILY calcitrioL [Rocaltrol] 0.5 mcg PO DAILY Budesonide [Pulmicort] 0.5 mg INHALATION RT-BID Atorvastatin [Lipitor] 80 mg PO DAILY Torsemide [Demadex] 20 mg PO DAILY Levothyroxine Sodium [Synthroid] 150 mcg PO DAILY Insulin Glargine,Hum.rec.anlog [Toujeo Max Solostar] 26 units SQ DAILY Ipratropium-Albuterol Nebulize [Duoneb 0.5 mg-3 mg/3 ml Soln] 3 ml INHALATION RT-QID Escitalopram [Lexapro] 20 mg PO DAILY Apixaban [Eliquis] 2.5 mg PO BID Empagliflozin [Jardiance] 10 mg PO DAILY Discontinued Aspirin 81 mg PO DAILY Digoxin [Digitek] 125 mcg PO Q2D Discharge Medication List Apixaban [Eliquis] 2.5 mg PO BID 07/05/23 [History] Atorvastatin [Lipitor] 80 mg PO DAILY 07/05/23 [History] Budesonide [Pulmicort] 0.5 mg INHALATION RT-BID 07/05/23 [History] Clopidogrel [Plavix] 75 mg PO DAILY 07/05/23 [History] Cyclobenzaprine [Flexeril] 5 mg PO BID PRN 07/05/23 [History] Empagliflozin [Jardiance] 10 mg PO DAILY 07/05/23 [History] Escitalopram [Lexapro] 20 mg PO DAILY 07/05/23 [History] Folic Acid 1 mg PO DAILY 07/05/23 [History] Insulin Glargine,Hum.rec.anlog [Toujeo Max Solostar] 26 units SQ DAILY 07/05/23 [History] Ipratropium-Albuterol Nebulize [Duoneb 0.5 mg-3 mg/3 ml Soln] 3 ml INHALATION RT-QID 07/05/23 [History] Levothyroxine Sodium [Synthroid] 150 mcg PO DAILY 07/05/23 [History] Linagliptin [Tradjenta] 5 mg PO DAILY 07/05/23 [History] Metoprolol Tartrate [Lopressor] 25 mg PO BID 07/05/23 [History] Montelukast [Singulair] 10 mg PO HS 07/05/23 [History] Multivitamins, Thera [Multivitamin (formulary)] 1 tab PO DAILY 07/05/23 [History] Pantoprazole [Protonix] 40 mg PO DAILY 07/05/23 [History] Potassium Chloride [Klor-Con M20] 20 meq PO DAILY 07/05/23 [History] Tamsulosin HCl [Flomax] 0.4 mg PO DAILY 07/05/23 [History] Torsemide [Demadex] 20 mg PO DAILY 07/05/23 [History] calcitrioL [Rocaltrol] 0.5 mcg PO DAILY 07/05/23 [History] Losartan [Cozaar] 25 mg PO HS #90 tab 07/09/23 [Rx] Nitroglycerin Sl Tabs [Nitrostat] 0.4 mg SUBLINGUAL Q5M PRN #100 tab 07/09/23 [Rx] Aspirin 81 mg PO DAILY 7 Days #7 tab 07/10/23 [Rx] Albuterol Inhaler [Ventolin Hfa Inhaler] 2 puff INHALATION QID #8 gm 07/11/23 [Rx] Follow up Appointment(s)/Referral(s): Ronnie Sharma MD [Primary Care Provider] - 1-2 days (Office is closed at time of discharge. Please call for follow-up appointment.) Rainer Pat MD [STAFF PHYSICIAN] - 1 Week (Office is closed at time of discharge. Please call for follow-up appointment.) José Manuel Shaw MD [STAFF PHYSICIAN] - 3 Weeks (Office is closed at time of discharge. Please call for follow-up appointment.) Patient Instructions/Handouts: A-fib (Atrial Fibrillation) (DC) Activity/Diet/Wound Care/Special Instructions: heat healthy diet activity is restricted till you see your doctor we recommend to continue with your aspirin for 1 week only , after the end of the week stop aspirin continue with eliquis and plavix all the time please Discharge Disposition: HOME WITH HOME HEALTH SERVICES
== END 2023-07-11 14:41 | disposition home health service (06) | DRG 321 ==
LOC: EC 18:50 → 3SCARD 23:10 → 4SSUR 07-10 22:09
PROVIDERS: ADMIT Internal Medicine; ATTEND Internal Medicine
PROC: 027034Z Dilation of Coronary Artery, One Artery with Drug-eluting Intraluminal Device, Percutaneous Approach (ICD-10-PCS; principal; 2023-07-04)
PROC: 02703ZZ Dilation of Coronary Artery, One Artery, Percutaneous Approach (ICD-10-PCS; 2023-07-04)
PROC: B240ZZ3 Ultrasonography of Single Coronary Artery, Intravascular (ICD-10-PCS; 2023-07-04)
PROC: 4A023N7 Measurement of Cardiac Sampling and Pressure, Left Heart, Percutaneous Approach (ICD-10-PCS; 2023-07-08)
PROC: B2111ZZ Fluoroscopy of Multiple Coronary Arteries using Low Osmolar Contrast (ICD-10-PCS; 2023-07-08)
DX: I21.4 Non-ST elevation (NSTEMI) myocardial infarction (principal); I50.23 Acute on chronic systolic (congestive) heart failure; J96.01 Acute respiratory failure with hypoxia; I13.0 Hypertensive heart and chronic kidney disease with heart failure and stage 1 through stage 4 chronic kidney disease, or unspecified chronic kidney disease; I48.21 Permanent atrial fibrillation; I48.92 Unspecified atrial flutter; J44.9 Chronic obstructive pulmonary disease, unspecified; I25.10 Atherosclerotic heart disease of native coronary artery without angina pectoris; N18.30 Chronic kidney disease, stage 3 unspecified; I25.5 Ischemic cardiomyopathy; F41.9 Anxiety disorder, unspecified; I25.2 Old myocardial infarction; D64.9 Anemia, unspecified; E11.22 Type 2 diabetes mellitus with diabetic chronic kidney disease; E11.51 Type 2 diabetes mellitus with diabetic peripheral angiopathy without gangrene; E78.5 Hyperlipidemia, unspecified; I27.20 Pulmonary hypertension, unspecified; I08.1 Rheumatic disorders of both mitral and tricuspid valves; Z95.5 Presence of coronary angioplasty implant and graft; I45.10 Unspecified right bundle-branch block; Z79.01 Long term (current) use of anticoagulants; Z79.02 Long term (current) use of antithrombotics/antiplatelets; Z79.82 Long term (current) use of aspirin; Z79.84 Long term (current) use of oral hypoglycemic drugs; Z79.890 Hormone replacement therapy; Z79.899 Other long term (current) drug therapy; Z86.711 Personal history of pulmonary embolism; Z89.429 Acquired absence of other toe(s), unspecified side
CPT/HCPCS: 36415; 71046; 80048; 80053; 80061; 81001; 83036; 83605; 83735; 83880; 84145; 84439; 84443; 84484; 85025; 85730; 87636; 92921; 92978; 93005; 93306; 93458; 94640; 94760; 96365; 96366; 96375; 96376; 99285

== ENCOUNTER 2023-07-14 12:50 | Observation (INO) | payer MEDICARE ==
--- NOTE | 2023-07-14 13:00 | ED ---
General Adult HPI - General Chief complaint: Weakness Stated complaint: Weakness Time Seen by Provider: 07/14/23 12:51 Source: patient, EMS, RN notes reviewed Mode of arrival: EMS Limitations: no limitations - History of Present Illness Initial comments: Patient is a pleasant 83-year-old male presenting to the emergency department weakness. Patient was just recently discharged from the hospital 3 days ago. Patient does have some difficulty in breathing. Patient has fallen a few times without injury. No isolated area of weakness or confusion. Occasional cough. - Related Data Home Medications Medication Instructions Recorded Confirmed Apixaban [Eliquis] 2.5 mg PO BID 07/05/23 07/05/23 Atorvastatin [Lipitor] 80 mg PO DAILY 07/05/23 07/05/23 Budesonide [Pulmicort] 0.5 mg INHALATION RT-BID 07/05/23 07/05/23 Clopidogrel [Plavix] 75 mg PO DAILY 07/05/23 07/05/23 Cyclobenzaprine [Flexeril] 5 mg PO BID PRN 07/05/23 07/05/23 Empagliflozin [Jardiance] 10 mg PO DAILY 07/05/23 07/05/23 Escitalopram [Lexapro] 20 mg PO DAILY 07/05/23 07/05/23 Folic Acid 1 mg PO DAILY 07/05/23 07/05/23 Insulin Glargine,Hum.rec.anlog 26 units SQ DAILY 07/05/23 07/05/23 [Toujeo Max Solostar] Ipratropium-Albuterol Nebulize 3 ml INHALATION RT-QID 07/05/23 07/05/23 [Duoneb 0.5 mg-3 mg/3 ml Soln] Levothyroxine Sodium [Synthroid] 150 mcg PO DAILY 07/05/23 07/05/23 Linagliptin [Tradjenta] 5 mg PO DAILY 07/05/23 07/05/23 Metoprolol Tartrate [Lopressor] 25 mg PO BID 07/05/23 07/05/23 Montelukast [Singulair] 10 mg PO HS 07/05/23 07/05/23 Multivitamins, Thera [Multivitamin 1 tab PO DAILY 07/05/23 07/05/23 (formulary)] Pantoprazole [Protonix] 40 mg PO DAILY 07/05/23 07/05/23 Potassium Chloride [Klor-Con M20] 20 meq PO DAILY 07/05/23 07/05/23 Tamsulosin HCl [Flomax] 0.4 mg PO DAILY 07/05/23 07/05/23 Torsemide [Demadex] 20 mg PO DAILY 07/05/23 07/05/23 calcitrioL [Rocaltrol] 0.5 mcg PO DAILY 07/05/23 07/05/23 Previous Rx's Medication Instructions Recorded Losartan [Cozaar] 25 mg PO HS #90 tab 07/09/23 Nitroglycerin Sl Tabs [Nitrostat] 0.4 mg SUBLINGUAL Q5M PRN #100 tab 07/09/23 Aspirin 81 mg PO DAILY 7 Days #7 tab 07/10/23 Albuterol Inhaler [Ventolin Hfa 2 puff INHALATION QID #8 gm 07/11/23 Inhaler] Allergies Allergy/AdvReac Type Severity Reaction Status Date / Time cortisone Allergy Swelling Verified 12/18/19 06:24 Review of Systems ROS Statement: Those systems with pertinent positive or pertinent negative responses have been documented in the HPI. ROS Other: All systems not noted in ROS Statement are negative. Constitutional: Denies: fever Eyes: Denies: eye pain ENT: Denies: ear pain Respiratory: Reports: as per HPI Cardiovascular: Denies: chest pain Endocrine: Reports: fatigue Musculoskeletal: Denies: back pain Neurological: Reports: as per HPI, weakness Past Medical History Past Medical History: Atrial Fibrillation, Coronary Artery Disease (CAD), Chest Pain / Angina, Diabetes Mellitus, Deep Vein Thrombosis (DVT), GERD/Reflux, GI Bleed, Hypertension, Thyroid Disorder Additional Past Medical History / Comment(s): upper and lower GI bld in 2014, diverticulosis, upper dental bridge Last Myocardial Infarction Date:: 02/2018 History of Any Multi-Drug Resistant Organisms: None Reported Past Surgical History: Back Surgery, Cholecystectomy, Heart Catheterization With Stent, Orthopedic Surgery Additional Past Surgical History / Comment(s): rotator cuff repair & WRIST SURGERY Past Anesthesia/Blood Transfusion Reactions: No Reported Reaction Date of Last Stent Placement:: 03/09/18 Past Psychological History: Anxiety Smoking Status: Former smoker Past Alcohol Use History: None Reported Past Drug Use History: None Reported - Past Family History Father History Unknown: Yes Additional Family Medical History / Comment(s): FAMILY HISTORY UNKNOWN.pt was placed in foster care at 6-ended up living in 11 different families. General Exam Limitations: no limitations General appearance: alert, in no apparent distress Head exam: Present: atraumatic, normocephalic Eye exam: Present: normal appearance, PERRL, EOMI ENT exam: Present: normal oropharynx Neck exam: Present: normal inspection. Absent: tenderness Respiratory exam: Present: rales Cardiovascular Exam: Present: irregular rhythm GI/Abdominal exam: Present: soft. Absent: tenderness Extremities exam: Present: normal inspection, full ROM. Absent: tenderness Neurological exam: Present: alert, CN II-XII intact. Absent: motor sensory deficit Expanded Speech: Present: fluid speech Cranial nerves: EOM's Intact: Normal Motor strength exam: RUE: 5, LUE: 5, RLE: 5, LLE: 5 Eye Response: (4) open spontaneously Motor Response: (6) obeys commands Verbal Response: (5) oriented Psychiatric exam: Present: normal affect, normal mood Skin exam: Present: normal color Course Vital Signs 07/14/23 12:56 Temperature 97.6 F Pulse Rate 63 Respiratory 20 Rate Blood Pressure 131/73 O2 Sat by Pulse 98 Oximetry EKG Findings - EKG Results: EKG: interpreted by ERMD (Left axis. Septal Q waves. Nonspecific ST-T. Nonspecific intraventricular conduction delay. Previous EKGs reviewed.) EKG shows: atrial fibrillation Medical Decision Making - Medical Decision Making Was pt. sent in by a medical professional or institution (, PA, NURSING INFORMATICS SPECIALIST, urgent care, hospital, or halfway...) When possible be specific @ -No Did you speak to anyone other than the patient for history (EMS, parent, family, police, friend...)? What history was obtained from this source @ -No Did you review nursing and triage notes (agree or disagree)? Why? @ -I reviewed and agree with nursing and triage notes Were old charts reviewed (outside hosp., previous admission, EMS record, old EKG, old radiological studies, urgent care reports/EKG's, halfway records)? Report findings @ -Previous admission and x-ray reviewed Differential Diagnosis (chest pain, altered mental status, abdominal pain women, abdominal pain men, vaginal bleeding, weakness, fever, dyspnea, syncope, headache, dizziness, GI bleed, back pain, seizure, CVA, palpatations, mental health, musculoskeletal)? @ -Differential Weakness: Hypoglycemia, shock, sepsis, hyponatremia, anemia, infection, OH, ETOH, adverse medicine reaction, overdose, stroke, this is not meant to be an all-inclusive list. EKG interpreted by me (3pts min.). @ -As above X-rays interpreted by me (1pt min.). @ -Chest x-ray shows cardiomegaly and CHF CT interpreted by me (1pt min.). @ -None done U/S interpreted by me (1pt. min.). @ -None done What testing was considered but not performed or refused? (CT, X-rays, U/S, l abs)? Why? @ -None What meds were considered but not given or refused? Why? @ -None Did you discuss the management of the patient with other professionals (professionals i.e. , PA, NURSING INFORMATICS SPECIALIST, lab, RT, psych nurse, social work faculty member, shipping services sales representative, teacher, civil preparedness officer, community case manager)? Give summary @ -Case was discussed with Dr. Joel who will admit his patient Was smoking cessation discussed for >3mins.? @ -No Was critical care preformed (if so, how long)? @ -No Were there social determinants of health that impacted care today? How? (Homelessness, low income, unemployed, alcoholism, drug addiction, tr ansportation, low edu. Level, literacy, decrease access to med. care, skilled nursing, rehab)? @ -No Was there de-escalation of care discussed even if they declined (Discuss DNR or withdrawal of care, Hospice)? DNR status @ -No What co-morbidities impacted this encounter? (DM, HTN, Smoking, COPD, CAD, Cancer, CVA, ARF, Chemo, Hep., AIDS, mental health diagnosis, sleep apnea, morbid obesity)? @ -None Was patient admitted / discharged? Hospital course, mention meds given and route, prescriptions, significant lab abnormalities, going to OR and other pertinent info. @ -Patient reevaluated. Patient updated. Admission orders written. Patient will be admitted with cardiac consult. Social work will also be consulted for possible placement Undiagnosed new problem with uncertain prognosis? @ -No Drug Therapy requiring intensive monitoring for toxicity (Heparin, Nitro, Insulin, Cardizem)? @ -No Were any procedures done? @ -No Diagnosis/symptom? @ -Weakness, CHF Acute, or Chronic, or Acute on Chronic? @ -Acute, acute on chronic Uncomplicated (without systemic symptoms) or Complicated (systemic symptoms)? @ -Default Side effects of treatment? @ -No Exacerbation, Progression, or Severe Exacerbation? @ -No Poses a threat to life or bodily function? How? (Chest pain, USA, OH, pneumonia, PE, COPD, DKA, ARF, appy, cholecystitis, CVA, Diverticulitis, Homicidal, Suicidal, threat to staff... and all critical care pts) @ -Potential for cardiac decompensation - Lab Data Result diagrams: 07/14/23 13:02 07/14/23 13:02 Lab Results 07/14/23 07/14/23 07/14/23 Range/Units 13:02 13:02 13:02 WBC 6.8 (3.8-10.6) k/uL RBC 3.48 L (4.30-5.90) m/uL Hgb 10.8 L (13.0-17.5) gm/dL Hct 34.0 L (39.0-53.0) % MCV 97.9 (80.0-100.0) fL MCH 31.0 (25.0-35.0) pg MCHC 31.6 (31.0-37.0) g/dL RDW 17.4 H (11.5-15.5) % Plt Count 218 (150-450) k/uL MPV 8.5 Neutrophils % 56 % Lymphocytes % 27 % Monocytes % 9 % Eosinophils % 5 % Basophils % 1 % Neutrophils # 3.8 (1.3-7.7) k/uL Lymphocytes # 1.8 (1.0-4.8) k/uL Monocytes # 0.6 (0-1.0) k/uL Eosinophils # 0.4 (0-0.7) k/uL Basophils # 0.0 (0-0.2) k/uL Hypochromasia Moderate Anisocytosis Slight Macrocytosis Slight PT 11.9 (10.0-12.5) sec INR 1.1 (<1.2) APTT 22.4 (22.0-30.0) sec Sodium 138 (137-145) mmol/L Potassium 4.1 (3.5-5.1) mmol/L Chloride 103 (98-107) mmol/L Carbon Dioxide 29 (22-30) mmol/L Anion Gap 6 mmol/L BUN 23 H (9-20) mg/dL Creatinine 1.39 H (0.66-1.25) mg/dL Est GFR (CKD-EPI)AfAm 54 (>60 ml/min/1.73 sqM) Est GFR (CKD-EPI)NonAf 47 (>60 ml/min/1.73 sqM) Glucose 121 H (74-99) mg/dL Plasma Lactic Acid Jason (0.7-2.0) mmol/L Calcium 10.9 H (8.4-10.2) mg/dL Magnesium 1.7 (1.6-2.3) mg/dL Total Bilirubin 0.5 (0.2-1.3) mg/dL AST 27 (17-59) U/L ALT 16 (4-49) U/L Alkaline Phosphatase 82 (38-126) U/L Troponin I (0.000-0.034) ng/mL NT-Pro-B Natriuret Pep 26200 pg/mL Total Protein 6.1 L (6.3-8.2) g/dL Albumin 3.0 L (3.5-5.0) g/dL TSH 0.483 (0.465-4.680) mIU/L Influenza Type A (PCR) (Not Detectd) Influenza Type B (PCR) (Not Detectd) RSV (PCR) (Not Detectd) SARS-CoV-2 (PCR) (Not Detectd) 07/14/23 07/14/23 07/14/23 Range/Units 13:02 13:02 13:02 WBC (3.8-10.6) k/uL RBC (4.30-5.90) m/uL Hgb (13.0-17.5) gm/dL Hct (39.0-53.0) % MCV (80.0-100.0) fL MCH (25.0-35.0) pg MCHC (31.0-37.0) g/dL RDW (11.5-15.5) % Plt Count (150-450) k/uL MPV Neutrophils % % Lymphocytes % % Monocytes % % Eosinophils % % Basophils % % Neutrophils # (1.3-7.7) k/uL Lymphocytes # (1.0-4.8) k/uL Monocytes # (0-1.0) k/uL Eosinophils # (0-0.7) k/uL Basophils # (0-0.2) k/uL Hypochromasia Anisocytosis Macrocytosis PT (10.0-12.5) sec INR (<1.2) APTT (22.0-30.0) sec Sodium (137-145) mmol/L Potassium (3.5-5.1) mmol/L Chloride (98-107) mmol/L Carbon Dioxide (22-30) mmol/L Anion Gap mmol/L BUN (9-20) mg/dL Creatinine (0.66-1.25) mg/dL Est GFR (CKD-EPI)AfAm (>60 ml/min/1.73 sqM) Est GFR (CKD-EPI)NonAf (>60 ml/min/1.73 sqM) Glucose (74-99) mg/dL Plasma Lactic Acid Jason 1.4 (0.7-2.0) mmol/L Calcium (8.4-10.2) mg/dL Magnesium (1.6-2.3) mg/dL Total Bilirubin (0.2-1.3) mg/dL AST (17-59) U/L ALT (4-49) U/L Alkaline Phosphatase (38-126) U/L Troponin I 0.040 H* (0.000-0.034) ng/mL NT-Pro-B Natriuret Pep pg/mL Total Protein (6.3-8.2) g/dL Albumin (3.5-5.0) g/dL TSH (0.465-4.680) mIU/L Influenza Type A (PCR) Not Detected (Not Detectd) Influenza Type B (PCR) Not Detected (Not Detectd) RSV (PCR) Not Detected (Not Detectd) SARS-CoV-2 (PCR) Not Detected (Not Detectd) Disposition Clinical Impression: CHF (congestive heart failure), Weakness Disposition: ADMITTED IP TO THIS HOSP Is patient prescribed a controlled substance at d/c from ED?: No Referrals: Ronnie Sharma MD [Primary Care Provider] - 1-2 days Time of Disposition: 14:32
[2023-07-14 13:19] LABS: Anisocytosis Slight; Basophils % (A) 1 %; Eosinophils # (A) 0.4 k/uL (0-0.7); Eosinophils % (A) 5 %; HGB 10.8 gm/dL (13.0-17.5); Hypochromasia Moderate; Lymphocytes # (A) 1.8 k/uL (1.0-4.8); Lymphocytes % (A) 27 %; MCHC 31.6 g/dL (31.0-37.0); MCV 97.9 fL (80.0-100.0); Macrocytosis Slight; Mean Platelet Volume 8.5; Monocytes # (A) 0.6 k/uL (0-1.0); Monocytes % (A) 9 %; Neutrophils # (A) 3.8 k/uL (1.3-7.7); Neutrophils % (A) 56 %; Platelet Count 218 k/uL (150-450); RBC 3.48 m/uL (4.30-5.90); RDW 17.4 % (11.5-15.5); WBC 6.8 k/uL (3.8-10.6)
[2023-07-14 13:30] LABS: INR 1.1 (<1.2); Partial Thromboplastin Time 22.4 sec (22.0-30.0); Prothrombin Time 11.9 sec (10.0-12.5)
[2023-07-14 13:39] LABS: ALT 16 U/L (4-49); AST 27 U/L (17-59); African American GFR (CKD) 54 (>60 ml/min/1.73 sqM); Alkaline Phosphatase 82 U/L (38-126); Anion Gap 6 mmol/L; Blood Urea Nitrogen 23 mg/dL (9-20); Calcium 10.9 mg/dL (8.4-10.2); Carbon Dioxide 29 mmol/L (22-30); Chloride 103 mmol/L (98-107); Glucose 121 mg/dL (74-99); Magnesium 1.7 mg/dL (1.6-2.3); Non-African American GFR(CKD) 47 (>60 ml/min/1.73 sqM); Potassium 4.1 mmol/L (3.5-5.1); Sodium 138 mmol/L (137-145); Total Bilirubin 0.5 mg/dL (0.2-1.3); Total Protein 6.1 g/dL (6.3-8.2)
[2023-07-14 13:46] LABS: NT-Pro-B-Type Natriuretic Pept 11700 pg/mL
--- NOTE | 2023-07-14 13:46 | CT ---
EXAMINATION TYPE: CT brain wo con DATE OF EXAM: 07/14/2023 COMPARISON: None available. HISTORY: General weakness. CT DLP: 1171.4 mGycm Automated exposure control for dose reduction was used. FINDINGS: There is no acute intracranial hemorrhage, mass, mass effect, midline shift, extra-axial fluid collec tions or hydrocephalus. There is hypoattenuation within the periventricular, subcortical and deep white matter which is kendra tible with chronic ischemic small vessel change. There is no acute major vessel infarct. Age-related atrophy is otherwise noted. The visualized paranasal sinuses and mastoid air cells are clear. IMPRESSION: Chronic changes with no acute intracranial process.
--- NOTE | 2023-07-14 13:47 | XR ---
EXAMINATION TYPE: XR chest 2V DATE OF EXAM: 07/14/2023 COMPARISON: 07/04/2023. HISTORY: Shortness of breath. TECHNIQUE: Frontal and lateral views of the chest are obtained. FINDINGS: The cardiac silhouette is moderately enlarged with mild diffuse interstitial edema and mod erate bilateral pleural effusions. IMPRESSION: Cardiomegaly with mild edema and moderate bilateral pleural effusions. This is likely sl ightly progressed since the previous examination.
[2023-07-14] MEDS: FUROSEMIDE 10 MG/ML 4 ML VIAL IV SCH (15:15)
[2023-07-14] MEDS: ASPIRIN 325 MG TAB PO STA (15:15)
[2023-07-14 15:39] LABS: Appearance,Urine Clear (Clear); Bilirubin,Urine Negative (Negative); Blood,Urine Negative (Negative); Color,Urine Colorless; Glucose,Urine (UA) 2+ (Negative); Ketones,Urine Negative (Negative); Leukocyte Esterase,Urine Negative (Negative); Nitrite,Urine Negative (Negative); PH, Urine 5.5 (5.0-8.0); Protein,Urine Negative (Negative); Specific Gravity,Urine 1.007 (1.001-1.035); Urobilinogen,Urine <2.0 mg/dL (<2.0)
[2023-07-14] MEDS ORDERED: NITROGLYCERIN SL TABS 0.4 MG TAB SUBLINGUAL PRN (16:13)
[2023-07-14] MEDS ORDERED: ALBUTEROL NEBULIZED 2.5 MG/3 ML INHALATION PRN (16:13)
[2023-07-14] MEDS ORDERED: CYCLOBENZAPRINE 5 MG TAB PO PRN (16:13)
[2023-07-14] MEDS: ASPIRIN 81 MG PO SCH (16:22)
[2023-07-14] MEDS: MIDODRINE 5 MG TAB PO SCH (17:14)
[2023-07-14] MEDS: IPRATROPIUM-ALBUTEROL 3 ML NEB INHALATION SCH (20:00)
[2023-07-14] MEDS: BUDESONIDE 0.5 MG/2 ML NEBU INHALATION SCH (20:00)
[2023-07-14] MEDS: METOPROLOL TARTRATE 25 MG TAB PO SCH (22:16)
[2023-07-14] MEDS: LOSARTAN 25 MG TAB PO SCH (22:17)
[2023-07-14] MEDS: APIXABAN 2.5 MG TABLET PO SCH (22:17)
[2023-07-14] MEDS: MONTELUKAST 10 MG TAB PO SCH (22:18)
[2023-07-15] MEDS: LEVOTHYROXINE 75 MCG TAB PO SCH (06:05)
[2023-07-15] MEDS: INSULIN DETEMIR (LEVEMIR) 100 UNIT/ML SYR SQ SCH (08:39)
[2023-07-15] MEDS: ESCITALOPRAM 20 MG TAB PO SCH (08:41)
[2023-07-15] MEDS: ASPIRIN 81 MG PO SCH (08:41)
[2023-07-15] MEDS: DAPAGLIFLOZIN PROPANEDIOL 5 MG TABLET PO SCH (08:41)
[2023-07-15] MEDS: POTASSIUM CHLORIDE ER 20 MEQ TAB.ER PO SCH (08:42)
[2023-07-15] MEDS: FOLIC ACID 1 MG TAB PO SCH (08:42)
[2023-07-15] MEDS: CLOPIDOGREL 75 MG TAB PO SCH (08:42)
[2023-07-15] MEDS: PANTOPRAZOLE 40 MG TABLET PO SCH (08:42)
[2023-07-15] MEDS: TAMSULOSIN 0.4 MG CAP.ER.24H PO SCH (08:42)
[2023-07-15] MEDS: ATORVASTATIN 80 MG TAB PO SCH (08:42)
[2023-07-15] MEDS: MULTIVITAMINS, THERA 1 EACH TAB PO SCH (08:42)
[2023-07-15] MEDS ORDERED: ASPIRIN 325 MG TAB PO SCH (09:00)
[2023-07-15 09:01] LABS: Anisocytosis Slight; HCT 32.4 % (39.0-53.0); HGB 10.4 gm/dL (13.0-17.5); Hypochromasia Moderate; MCH 31.2 pg (25.0-35.0); MCV 97.5 fL (80.0-100.0); Macrocytosis Slight; Platelet Count 209 k/uL (150-450); RBC 3.32 m/uL (4.30-5.90); RDW 17.3 % (11.5-15.5); WBC 8.2 k/uL (3.8-10.6)
[2023-07-15 09:27] LABS: ALT 16 U/L (4-49); AST 31 U/L (17-59); African American GFR (CKD) 55 (>60 ml/min/1.73 sqM); Albumin 2.8 g/dL (3.5-5.0); Alkaline Phosphatase 80 U/L (38-126); Anion Gap 5 mmol/L; Blood Urea Nitrogen 23 mg/dL (9-20); Calcium 10.5 mg/dL (8.4-10.2); Carbon Dioxide 30 mmol/L (22-30); Chloride 103 mmol/L (98-107); Glucose 84 mg/dL (74-99); Non-African American GFR(CKD) 47 (>60 ml/min/1.73 sqM); Potassium 3.9 mmol/L (3.5-5.1); Sodium 138 mmol/L (137-145); Total Bilirubin 0.8 mg/dL (0.2-1.3); Total Protein 5.8 g/dL (6.3-8.2)
--- NOTE | 2023-07-15 09:33 | P.CRDCN ---
History of Present Illness Consult date: 07/15/23 Consult reason: congestive heart failure History of present illness: History of present illness: This is an 83-year-old male patient of Dr. Rhonda Pat with past medical history of coronary artery disease status post prior angioplasty, cardiomyopathy, severe pulmonary hypertension, dyslipidemia, permanent atrial fibrillation on Eliquis, peripheral artery disease status post amputation of toes on the right foot. We have been asked to evaluate the patient for CHF. Patient was recently hospitalized July 04 through July 11 at which time he was seen by cardiology for type II [place], acute on chronic systolic heart failure. Patient states that he had a nurse coming to his home but did not like the way he looked. Patient has significant weakness and difficulty breathing and falls. Patient denies having any chest pain. No palpitations. Patient is seen today in the emergency center waiting for a bed on the cardiac stepdown unit. EKG atrial fibrillation with ventricular rate of 59 bpm. Chest x-ray: Cardiomegaly with mild edema and moderate bilateral pleural effusions. CAT scan of the brain reveals chronic changes with no acute intracranial process. WBC 8.2, hemoglobin 10.4, platelet count 209. Electrolytes within normal limits. BUN 23 creatinine 1.39. Blood sugar 121, magnesium 1.7. Troponin 0.04. proBNP 11,700. TSH 0.483. Urinalysis negative for infection. Influenza A, influenza B, COVID-19, RSV not detected. Home cardiac medications: Eliquis 2.5 mg twice daily, atorvastatin 80 mg daily, Plavix 75 mg daily, Lasix 40 mg daily, metoprolol tartrate 25 mg twice daily, midodrine 10 mg 3 times daily, Nitrostat as needed, potassium chloride 20 mill colons daily, torsemide 20 mg daily, patient also prescribed aspirin 81 mg daily, losartan 25 mg daily as of 07/14. Patient is also on levothyroxine 150 mcg daily. Cardiac catheterization 07/[address] Rhonda Pat revealed left main was patent although difficult to selectively engage the left main because of ostial stent. No significant disease in the left system. Minor diffuse irregularities were noted. RCA proximally had a 70 to 80% eccentric lesion best seen in the cranial projection. Subsequently patient underwent PTCA and stenting of the mid left anterior descending and ostium of the left main with Dr. ROXANE Mondragon. Echocardiogram performed on 07/05/2023 revealed severely impaired left ventricular systolic function with segmental wall motion abnormality, EF 30 to 35%, moderate mitral, aortic, tricuspid regurgitation. Mild pulmonary hypertension. Review Of Systems: At the time of my exam: CONSTITUTIONAL: Denies fever or chills. HEENT: Denies blurred vision, vision changes, or eye pain. Denies hemoptysis CARDIOVASCULAR: Denies chest pain. Denies orthopnea. Denies PND. Denies palpitations RESPIRATORY: Denies shortness of breath. GASTROINTESTINAL: Denies abdominal pain. Denies nausea or vomiting. HEMATOLOGIC: Denies bleeding disorders. GENITOURINARY: Denies any blood in urine. SKIN: Denies pruitis. Denies rash. Physical examination: Gen: This is a 83-year-old male in no acute distress. VS: reviewed blood pressure 118/57, heart rate 73, pulse ox 97% on 2 L nasal cannula. HEENT: Head is atraumatic, normocephalic. Pupils equal, round. Sclerae is anicteric. NECK: Supple. No JVD. LUNGS: Clear to auscultation. No wheezes or rhonchi. No intercostal retractions. HEART: Regular rate and rhythm. Systolic ejection murmur at the right p arasternal border and systolic murmur at the apex. ABDOMEN: Soft No tenderness. EXTREMITIES: No pedal edema. No calf tenderness. NEUROLOGICAL: Patient is awake, alert and oriented x3. Assessment: Generalized weakness and falls Acute on chronic systolic heart failure Moderate bilateral pleural effusions Known history of coronary artery disease with prior stenting Ischemic cardiomyopathy Severe pulm hypertension Dyslipidemia Permanent atrial fibrillation on Eliquis Peripheral artery disease with 3 amputation of toes of the right foot Plan: Continue patient's home cardiac medications Start patient on IV Lasix 40 mg every 8 hours and transition to oral tomorrow Monitor ADDY, daily weights, electrolytes and renal function No need to repeat echocardiogram as this was done earlier this month Further recommendations to follow based upon clinical course Thank you kindly for this consultation. Nurse practitioner note has been reviewed, I agree with documented findings and plan of care. Patient was seen and examined. Past Medical History Past Medical History: Atrial Fibrillation, Coronary Artery Disease (CAD), Chest Pain / Angina, Diabetes Mellitus, Deep Vein Thrombosis (DVT), GERD/Reflux, GI Bleed, Hypertension, Thyroid Disorder Additional Past Medical History / Comment(s): upper and lower GI bld in 2015, diverticulosis, upper dental bridge Last Myocardial Infarction Date:: 02/2018 History of Any Multi-Drug Resistant Organisms: None Reported Past Surgical History: Back Surgery, Cholecystectomy, Heart Catheterization With Stent, Orthopedic Surgery Additional Past Surgical History / Comment(s): rotator cuff repair & WRIST SURGERY Past Anesthesia/Blood Transfusion Reactions: No Reported Reaction Date of Last Stent Placement:: 03/09/18 Past Psychological History: Anxiety Smoking Status: Former smoker Past Alcohol Use History: None Reported Past Drug Use History: None Reported - Past Family History Father History Unknown: Yes Additional Family Medical History / Comment(s): FAMILY HISTORY UNKNOWN.pt was placed in foster care at [address] living in 11 different families. Medications and Allergies Home Medications Medication Instructions Recorded Confirmed Type Apixaban [Eliquis] 2.5 mg PO BID 07/05/23 07/14/23 History Atorvastatin [Lipitor] 80 mg PO DAILY 07/05/23 07/14/23 History Budesonide [Pulmicort] 0.5 mg INHALATION RT-BID 07/05/23 07/14/23 History Clopidogrel [Plavix] 75 mg PO DAILY 07/05/23 07/14/23 History Cyclobenzaprine [Flexeril] 5 mg PO BID PRN 07/05/23 07/14/23 History Empagliflozin [Jardiance] 10 mg PO DAILY 07/05/23 07/14/23 History Escitalopram [Lexapro] 20 mg PO DAILY 07/05/23 07/14/23 History Folic Acid 1 mg PO DAILY 07/05/23 07/14/23 History Insulin Glargine,Hum.rec.anlog 26 units SQ DAILY 07/05/23 07/14/23 History [Toujeo Max Solostar] Ipratropium-Albuterol Nebulize 3 ml INHALATION RT-QID 07/05/23 07/14/23 History [Duoneb 0.5 mg-3 mg/3 ml Soln] Levothyroxine Sodium [Synthroid] 150 mcg PO DAILY 07/05/23 07/14/23 History Linagliptin [Tradjenta] 5 mg PO DAILY 07/05/23 07/14/23 History Metoprolol Tartrate [Lopressor] 25 mg PO BID 07/05/23 07/14/23 History Montelukast [Singulair] 10 mg PO HS 07/05/23 07/14/23 History Multivitamins, Thera [Multivitamin 1 tab PO DAILY 07/05/23 07/14/23 History (formulary)] Pantoprazole [Protonix] 40 mg PO DAILY 07/05/23 07/14/23 History Potassium Chloride [Klor-Con M20] 20 meq PO DAILY 07/05/23 07/14/23 History Tamsulosin HCl [Flomax] 0.4 mg PO DAILY 07/05/23 07/14/23 History Torsemide [Demadex] 20 mg PO DAILY 07/05/23 07/14/23 History calcitrioL [Rocaltrol] 0.5 mcg PO DAILY 07/05/23 07/14/23 History Nitroglycerin Sl Tabs [Nitrostat] 0.4 mg SUBLINGUAL Q5M PRN #100 tab 07/09/23 07/14/23 Rx Albuterol Inhaler [Ventolin Hfa 2 puff INHALATION RT-QID PRN 07/14/23 07/14/23 History Inhaler] Aspirin 81 mg PO DIRECTED 07/14/23 07/14/23 History Furosemide [Lasix] 40 mg PO DAILY 07/14/23 07/14/23 History Losartan [Cozaar] 25 mg PO DIRECTED 07/14/23 07/14/23 History Midodrine HCl [ProAmatine] 10 mg PO TID 07/14/23 07/14/23 History Allergies Allergy/AdvReac Type Severity Reaction Status Date / Time cortisone Allergy Swelling Verified 07/14/23 16:01 Physical Exam Vitals: Vital Signs Temp Pulse Resp BP Pulse Ox 07/15/23 06:07 69 21 117/54 95 07/15/23 05:00 82 15 120/52 95 07/15/23 03:30 98.0 F 74 17 119/61 99 07/15/23 00:22 54 L 18 114/54 96 07/14/23 22:30 62 18 96/44 95 07/14/23 20:14 82 07/14/23 20:12 67 18 126/67 97 07/14/23 20:00 80 07/14/23 18:00 72 18 125/63 99 07/14/23 17:00 63 21 108/60 98 07/14/23 16:49 99 07/14/23 16:00 62 17 123/66 98 07/14/23 15:00 75 19 120/73 98 07/14/23 14:00 77 19 98 07/14/23 13:00 66 19 131/73 98 07/14/23 12:56 97.6 F 63 20 131/73 98 07/14/23 12:53 21 131/73 90 L Results 07/15/23 08:22 07/14/23 13:02 Cardiac Enzymes 07/14/23 07/14/23 Range/Units 13:02 13:02 AST 27 (17-59) U/L Troponin I 0.040 H* (0.000-0.034) ng/mL Coagulation 07/14/23 Range/Units 13:02 PT 11.9 (10.0-12.5) sec APTT 22.4 (22.0-30.0) sec CBC 07/14/23 Range/Units 13:02 WBC 6.8 (3.8-10.6) k/uL RBC 3.48 L (4.30-5.90) m/uL Hgb 10.8 L (13.0-17.5) gm/dL Hct 34.0 L (39.0-53.0) % Plt Count 218 (150-450) k/uL Comprehensive Metabolic Panel 07/14/23 Range/Units 13:02 Sodium 138 (137-145) mmol/L Potassium 4.1 (3.5-5.1) mmol/L Chloride 103 (98-107) mmol/L Carbon Dioxide 29 (22-30) mmol/L BUN 23 H (9-20) mg/dL Creatinine 1.39 H (0.66-1.25) mg/dL Glucose 121 H (74-99) mg/dL Calcium 10.9 H (8.4-10.2) mg/dL AST 27 (17-59) U/L ALT 16 (4-49) U/L Alkaline Phosphatase 82 (38-126) U/L Total Protein 6.1 L (6.3-8.2) g/dL Albumin 3.0 L (3.5-5.0) g/dL Current Medications Generic Name Dose Route Start Last Admin Trade Name Freq PRN Reason Stop Dose Admin Albuterol Sulfate 2.5 mg 07/14/23 16:13 Albuterol Nebulized 2.5 Mg/3 Ml INHALATION RT-QID PRN Shortness Of Breath Albuterol/Ipratropium 3 ml 07/14/23 20:00 07/14/23 20:00 Ipratropium-Albuterol 3 Ml Neb INHALATION 3 ml RT-QID [facility] Administration Apixaban 2.5 mg 07/14/23 21:00 07/14/23 22:17 Apixaban 2.5 Mg Tablet PO 2.5 mg BID [facility] Administration Protocol Aspirin 81 mg 07/15/23 09:00 Aspirin 81 Mg PO DAILY [facility] Atorvastatin Calcium 80 mg 07/15/23 09:00 Atorvastatin 80 Mg Tab PO DAILY [facility] Budesonide 0.5 mg 07/14/23 20:00 07/14/23 20:00 Budesonide 0.5 Mg/2 Ml Nebu INHALATION 0.5 mg RT-BID [facility] Administration Calcitriol 0.5 mcg 07/15/23 09:00 Calcitriol 0.25 Mcg Cap PO DAILY [facility] Clopidogrel Bisulfate 75 mg 07/15/23 09:00 Clopidogrel 75 Mg Tab PO DAILY [facility] Cyclobenzaprine HCl 5 mg 07/14/23 16:13 Cyclobenzaprine 5 Mg Tab PO BID PRN Muscle Spasm Dapagliflozin 5 mg 07/15/23 09:00 Dapagliflozin Propanediol 5 Mg Tablet PO DAILY [facility] Escitalopram Oxalate 20 mg 07/15/23 09:00 Escitalopram 20 Mg Tab PO DAILY [facility] Folic Acid 1 mg 07/15/23 09:00 Folic Acid 1 Mg Tab PO DAILY [facility] Furosemide 40 mg 07/14/23 15:30 07/15/23 00:22 Furosemide 10 Mg/Ml 4 Ml Vial IV Not Given Q8HR [facility] Insulin Detemir 26 unit 07/15/23 07:00 Insulin Detemir (Levemir) 100 Unit/Ml Syr SQ DAILY@0700 [facility] Levothyroxine Sodium 150 mcg 07/15/23 06:30 07/15/23 06:05 Levothyroxine 75 Mcg Tab PO 150 mcg DAILY@0630 [facility] Administration Losartan Potassium 25 mg 07/14/23 21:00 07/14/23 22:17 Losartan 25 Mg Tab PO 25 mg HS [facility] Administration Metoprolol Tartrate 25 mg 07/14/23 21:00 07/14/23 22:16 Metoprolol Tartrate 25 Mg Tab PO 25 mg BID [facility] Administration Midodrine 10 mg 07/14/23 17:30 07/14/23 17:14 Midodrine 5 Mg Tab PO 10 mg AC-TID [facility] Administration Montelukast Sodium 10 mg 07/14/23 21:00 07/14/23 22:18 Montelukast 10 Mg Tab PO 10 mg HS [facility] Administration Multivitamins 1 each 07/15/23 09:00 Multivitamins, Thera 1 Each Tab PO DAILY [facility] Nitroglycerin 0.4 mg 07/14/23 16:13 Nitroglycerin Sl Tabs 0.4 Mg Tab SUBLINGUAL Q5M PRN Chest Pain Pantoprazole Sodium 40 mg 07/15/23 07:30 Pantoprazole 40 Mg Tablet PO AC-BRKFST [facility] Potassium Chloride 20 meq 07/15/23 09:00 Potassium Chloride Er 20 Meq Tab.Er PO DAILY [facility] Tamsulosin HCl 0.4 mg 07/15/23 09:00 Tamsulosin 0.4 Mg Cap.Er.24h PO DAILY [facility] 07/14/23 13:02 07/14/23 13:02
--- NOTE | 2023-07-15 10:04 | P.HPIM ---
History of Present Illness H&P Date: 07/14/23 Chief Complaint: Acute systolic dysfunction congestive heart failure exacerb ation, worsening 83-year-old male one of My office patient who has been seen for the last 3 years with known history of COPD, atrial fibrillation, chronic kidney disease, atherosclerotic heart disease, history of pulmonary embolism, anasarca and chronic edema, history of hypertension and hyperlipidemia who is also known to have chronic palpitation and arrhythmia with worsening cellulitis and nonhealing ulcer in the lower extremity along with previous history of UTI, patient was hospitalized recently on July 04. July 11, 2023 for elevated troponin with non-ST [place] and atrial fibrillation with rapid ventricular response was stabilized and sent home on day 11 in stable condition during his hospitalization as last time found to have ejection fraction of 30 to 35% patient also is undergoing for heart catheter and ended up going for PCI and stent placement of the LAD successfully was placed on dual antiplatelet agent beside his Eliquis and remain on aspirin. Medication were adjusted he felt slightly bit better and ended up being discharged home. Please return to the emergency department today with significant dyspnea and shortness of breath he has fallen a few times since he left the hospital 3 days ago and become weak and worsening confusion at the time. Was seen and evaluated found to have still elevated troponin but proBNP of 11,700 UA was negative influenza AMB were negative slightly with worsening kidney function with creatinine 1.29 GFR at 47 also has mild anemia with hemoglobin of 10.8. Chest x-ray revealed cardiomegaly with mild edema and moderate bilateral pleural effusion much worsening than few days ago. CAT scan of the brain showed chronic changes with no acute intracranial process mostly small vessel disease. EKG shows atrial fibrillation with slow ventricular response. He was started on IV furosemide 40 mg IV every 8 hours despite diuresis well will be admitted to the hospital with the above problem. REVIEW OF SYSTEMS: CONSTITUTIONAL: Elderly laying in bed in mild respiratory distress. EYES: No icterus sclerae, no conjunctivitis. EARS, NOSE, MOUTH, THROAT, and FACE: No sore throat, lymphadenopathy, carotid bruits or deformity. RESPIRATORY: Positive dyspnea shortness of breath cough wheezes. CARDIOVASCULAR: No chest pain or angina positive palpitation with PND and orthopnea. GASTROINTESTINAL: No Abd pain, Nausea or vomiting, no Diarrhea or constipation, No GI Bleed, no distention or masses. GENITOURINARY: No kidney stone or UTI at this point slight decrease in urine output. INTEGUMENT/BREAST: significant edema and anasarca. HEMATOLOGIC/LYMPHATIC: Negative for bleed or purpura. MUSCULOSKELTAL: Negative for Myalgia or arthralgia. NEURLOGICAL: No LOC, Sz or syncope, blurred vision dizziness or abnormality.. Severe debility with multiple falls. BEHAVIORAL/PSYCH: Negative. ENDOCRINE: Negative. Physical examination: General Appearance: Alert, cooperative, looks older than his age and has been having mild distress. Neck HEENT: Supple, no lymphadenopathy, no thyroid enlargement, no carotid bruits. Lungs: Decreased breath sound bilaterally especially the right side with fine rhonchi positive mild crackles in the bases positive expiratory wheezes. Chest Wall: Decreased expansion with deep inspiration no tenderness and no deformity was found on exam, no costochondral pain or discomfort. Heart: Irregular. Rate S1-S2 +3 positive systolic murmur with JVD. Back: Symmetric, no curvature, ROM normal, no CVA tenderness. Abdomen: Soft positive bowel sounds slight distention with no sign of ascites. Extremities: Extremities normal, atraumatic, no cyanosis, 1+ edema Pulses: 2+ and symmetric. Skin: Skin color, texture, tugor normal, no rashes or lesions. Neurologic: Alert oriented x3 cranial nerves II through XII intact, no motor deficit, no abnormal balance or gait. Assessment and plan: 1 acute systolic congestive heart failure exacerbation: With recent history of [place] postangioplasty and stent placement: Significantly elevated proBNP at this point consistent with heart failure medication will be adjusted Will be on furosemide 40 mg IV Q8 also will consider to add spironolactone 25 mg a day patient in the meanwhile remain on Jardiance still on metoprolol and losartan to maintain the blood pressure above 100 systolic midodrine will be continued at this point. 2 recent history of [place] with non-ST elevation: Postangioplasty and stent placement of the LAD continue secondary prevention being on dual antiplatelet agent. Also continue aspirin. 3 atrial fibrillation with rapid ventricular sponsor: Pulse rate is under control currently with pulse running in the 60s and 70s remain on metoprolol titrate 25 mg twice a day still on anticoagulation with Eliquis. 4 hypertension remain on losartan and metoprolol with blood pressure sometimes fluctuating down compared to before requiring midodrine. 5 COPD: Continue DuoNeb nebulizer along with oxygen still on budesonide 0.5 mg twice a day. 6 hyperlipidemia: Remain on atorvastatin 80 mg daily. 7 Type 2 diabetes: Has been on Farxiga 5 mg a day. Still on Toujeo 26 units daily with short-acting insulin as well. Continue Accu-Cheks sliding scale coverage. 8 hypothyroidism: Continue levothyroxine 150 mcg daily. 9 acute kidney injury with chronic kidney disease: Keep watching for any significant drop in blood pressure supportive care if needed not a lot worsening since last time. 10 BPH: Remain on Flomax watch for any urinary retention. 11 GI prophylaxis: Continue pantoprazole. CODE STATUS: Full code. Admit patient to the inpatient service for more than 2 night stay. Past Medical History Past Medical History: Atrial Fibrillation, Coronary Artery Disease (CAD), Chest Pain / Angina, Diabetes Mellitus, Deep Vein Thrombosis (DVT), GERD/Reflux, GI Bleed, Hypertension, Thyroid Disorder Additional Past Medical History / Comment(s): upper and lower GI bld in 2014, diverticulosis, upper dental bridge Last Myocardial Infarction Date:: 02/2018 History of Any Multi-Drug Resistant Organisms: None Reported Past Surgical History: Back Surgery, Cholecystectomy, Heart Catheterization With Stent, Orthopedic Surgery Additional Past Surgical History / Comment(s): rotator cuff repair & WRIST SURGERY Past Anesthesia/Blood Transfusion Reactions: No Reported Reaction Date of Last Stent Placement:: 03/09/18 Past Psychological History: Anxiety Smoking Status: Former smoker Past Alcohol Use History: None Reported Past Drug Use History: None Reported - Past Family History Father History Unknown: Yes Additional Family Medical History / Comment(s): FAMILY HISTORY UNKNOWN.pt was placed in foster care at [address] living in 11 different families. Medications and Allergies Home Medications Medication Instructions Recorded Confirmed Type Apixaban [Eliquis] 2.5 mg PO BID 07/05/23 07/14/23 History Atorvastatin [Lipitor] 80 mg PO DAILY 07/05/23 07/14/23 History Budesonide [Pulmicort] 0.5 mg INHALATION RT-BID 07/05/23 07/14/23 History Clopidogrel [Plavix] 75 mg PO DAILY 07/05/23 07/14/23 History Cyclobenzaprine [Flexeril] 5 mg PO BID PRN 07/05/23 07/14/23 History Empagliflozin [Jardiance] 10 mg PO DAILY 07/05/23 07/14/23 History Escitalopram [Lexapro] 20 mg PO DAILY 07/05/23 07/14/23 History Folic Acid 1 mg PO DAILY 07/05/23 07/14/23 History Insulin Glargine,Hum.rec.anlog 26 units SQ DAILY 07/05/23 07/14/23 History [Toujeo Max Solostar] Ipratropium-Albuterol Nebulize 3 ml INHALATION RT-QID 07/05/23 07/14/23 History [Duoneb 0.5 mg-3 mg/3 ml Soln] Levothyroxine Sodium [Synthroid] 150 mcg PO DAILY 07/05/23 07/14/23 History Linagliptin [Tradjenta] 5 mg PO DAILY 07/05/23 07/14/23 History Metoprolol Tartrate [Lopressor] 25 mg PO BID 07/05/23 07/14/23 History Montelukast [Singulair] 10 mg PO HS 07/05/23 07/14/23 History Multivitamins, Thera [Multivitamin 1 tab PO DAILY 07/05/23 07/14/23 History (formulary)] Pantoprazole [Protonix] 40 mg PO DAILY 07/05/23 07/14/23 History Potassium Chloride [Klor-Con M20] 20 meq PO DAILY 07/05/23 07/14/23 History Tamsulosin HCl [Flomax] 0.4 mg PO DAILY 07/05/23 07/14/23 History Torsemide [Demadex] 20 mg PO DAILY 07/05/23 07/14/23 History calcitrioL [Rocaltrol] 0.5 mcg PO DAILY 07/05/23 07/14/23 History Nitroglycerin Sl Tabs [Nitrostat] 0.4 mg SUBLINGUAL Q5M PRN #100 tab 07/09/23 0 07/14/23 Rx Albuterol Inhaler [Ventolin Hfa 2 puff INHALATION RT-QID PRN 07/14/23 07/14/23 History Inhaler] Aspirin 81 mg PO DIRECTED 07/14/23 07/14/23 History Furosemide [Lasix] 40 mg PO DAILY 07/14/23 07/14/23 History Losartan [Cozaar] 25 mg PO DIRECTED 07/14/23 07/14/23 History Midodrine HCl [ProAmatine] 10 mg PO TID 07/14/23 07/14/23 History Allergies Allergy/AdvReac Type Severity Reaction Status Date / Time cortisone Allergy Swelling Verified 07/14/23 16:01 Physical Exam Vitals: Vital Signs Temp Pulse Resp BP Pulse Ox 07/14/23 16:00 62 17 123/66 98 07/14/23 15:00 75 19 120/73 98 07/14/23 14:00 77 19 98 07/14/23 13:00 66 19 131/73 98 07/14/23 12:56 97.6 F 63 20 131/73 98 07/14/23 12:53 21 131/73 90 L Intake and Output 07/14/23 07/14/23 07/14/23 06:59 14:59 22:59 Other: Weight 76.612 kg Results CBC & Chem 7: 07/14/23 13:02 07/14/23 13:02 Labs: Abnormal Lab Results - Last 24 Hours (Table) 07/14/23 07/14/23 07/14/23 Range/Units 13:02 13:02 13:02 RBC 3.48 L (4.30-5.90) m/uL Hgb 10.8 L (13.0-17.5) gm/dL Hct 34.0 L (39.0-53.0) % RDW 17.4 H (11.5-15.5) % BUN 23 H (9-20) mg/dL Creatinine 1.39 H (0.66-1.25) mg/dL Glucose 121 H (74-99) mg/dL Calcium 10.9 H (8.4-10.2) mg/dL Troponin I (0.000-0.034) ng/mL Total Protein 6.1 L (6.3-8.2) g/dL Albumin 3.0 L (3.5-5.0) g/dL Urine Glucose (UA) 2+ H (Negative) 07/14/23 Range/Units 13:02 RBC (4.30-5.90) m/uL Hgb (13.0-17.5) gm/dL Hct (39.0-53.0) % RDW (11.5-15.5) % BUN (9-20) mg/dL Creatinine (0.66-1.25) mg/dL Glucose (74-99) mg/dL Calcium (8.4-10.2) mg/dL Troponin I 0.040 H* (0.000-0.034) ng/mL Total Protein (6.3-8.2) g/dL Albumin (3.5-5.0) g/dL Urine Glucose (UA) (Negative)
[2023-07-15 20:25] LABS: Glucose,Whole Blood 141 mg/dL (70-110)
--- NOTE | 2023-07-15 20:51 | P.PN ---
Subjective Progress Note Date: 07/15/23 Chief Complaint: Acute systolic dysfunction congestive heart failure exacerbation, worsening 83-year-old male one of My office patient who has been seen for the last 3 years with known history of COPD, atrial fibrillation, chronic kidney disease, atherosclerotic heart disease, history of pulmonary embolism, anasarca and chronic edema, history of hypertension and hyperlipidemia who is also known to have chronic palpitation and arrhythmia with worsening cellulitis and nonhealing ulcer in the lower extremity along with previous history of UTI, patient was hospitalized recently on July 04. July 11, 2023 for elevated troponin with non-ST OR and atrial fibrillation with rapid ventricular response was stabilized and sent home on day 11 in stable condition during his hospitalization as last time found to have ejection fraction of 30 to 35% patient also is undergoing for heart catheter and ended up going for PCI and stent placement of the LAD successfully was placed on dual antiplatelet agent beside his Eliquis and remain on aspirin. Medication were adjusted he felt slightly bit better and ended up being discharged home. Please return to the emergency department today with significant dyspnea and shortness of breath he has fallen a few times since he left the hospital 3 days ago and become weak and worsening confusion at the time. Was seen and evaluated found to have still elevated troponin but proBNP of 11,700 UA was negative influenza AMB were negative slightly with worsening kidney function with creatinine 1.29 GFR at 47 also has mild anemia with hemoglobin of 10.8. Chest x-ray revealed cardiomegaly with mild edema and moderate bilateral pleural effusion much worsening than few days ago. CAT scan of the brain showed chronic changes with no acute intracranial process mostly small vessel disease. EKG shows atrial fibrillation with slow ventricular response. He was started on IV furosemide 40 mg IV every 8 hours despite diuresis well will be admitted to the hospital with the above problem. 07-15-2023: Patient was seen by cardiology today and apparently review testing from her his last admission agree this is acute on chronic systolic heart failure and to continue IV diuretics every 8 hours for now will adjust diuretics when patient is more subtle in the meanwhile his major problem is his debility not been able to ambulate and walk and has been much worsening since he had his gangrenous and amputated toes has been doing slightly bit worse with mobility has been in and out SNF at least twice last few weeks. Beside treating CHF will add PT OT and probably expect patient to require some help with nursing or rehab. REVIEW OF SYSTEMS: CONSTITUTIONAL: Elderly laying in bed in mild respiratory distress. EYES: No icterus sclerae, no conjunctivitis. EARS, NOSE, MOUTH, THROAT, and FACE: No sore throat, lymphadenopathy, carotid bruits or deformity. RESPIRATORY: Positive dyspnea shortness of breath cough wheezes. CARDIOVASCULAR: No chest pain or angina positive palpitation with PND and orthopnea. GASTROINTESTINAL: No Abd pain, Nausea or vomiting, no Diarrhea or constipation, No GI Bleed, no distention or masses. GENITOURINARY: No kidney stone or UTI at this point slight decrease in urine output. INTEGUMENT/BREAST: significant edema and anasarca. HEMATOLOGIC/LYMPHATIC: Negative for bleed or purpura. MUSCULOSKELTAL: Negative for Myalgia or arthralgia. NEURLOGICAL: No LOC, Sz or syncope, blurred vision dizziness or abnormality.. Severe debility with multiple falls. BEHAVIORAL/PSYCH: Negative. ENDOCRINE: Negative. Physical examination: General Appearance: Alert, cooperative, looks older than his age and has been having mild distress. Neck HEENT: Supple, no lymphadenopathy, no thyroid enlargement, no carotid bruits. Lungs: Decreased breath sound bilaterally especially the right side with fine rhonchi positive mild crackles in the bases positive expiratory wheezes. Chest Wall: Decreased expansion with deep inspiration no tenderness and no de formity was found on exam, no costochondral pain or discomfort. Heart: Irregular. Rate S1-S2 +3 positive systolic murmur with JVD. Back: Symmetric, no curvature, ROM normal, no CVA tenderness. Abdomen: Soft positive bowel sounds slight distention with no sign of ascites. Extremities: Extremities normal, atraumatic, no cyanosis, 1+ edema Pulses: 2+ and symmetric. Skin: Skin color, texture, tugor normal, no rashes or lesions. Neurologic: Alert oriented x3 cranial nerves II through XII intact, no motor deficit, no abnormal balance or gait. Assessment and plan: 1 acute systolic congestive heart failure exacerbation: With recent history of OR postangioplasty and stent placement: Significantly elevated proBNP at this point consistent with heart failure medication will be adjusted Will be on furosemide 40 mg IV Q8 also will consider to add spironolactone 25 mg a day patient in the meanwhile remain on Jardiance still on metoprolol and losartan to maintain the blood pressure above 100 systolic midodrine will be continued at this point. 2 recent history of OR with non-ST elevation: Postangioplasty and stent placement of the LAD continue secondary prevention being on dual antiplatelet agent. Also continue aspirin. 3 atrial fibrillation with rapid ventricular sponsor: Pulse rate is under control currently with pulse running in the 60s and 70s remain on metoprolol titrate 25 mg twice a day still on anticoagulation with Eliquis. 4 bilateral pleural effusion: Most likely secondary to CHF will be treated with diuretics for now if no improvement might require thoracentesis. 5 COPD: Continue DuoNeb nebulizer along with oxygen still on budesonide 0.5 mg twice a day. 6 severe generalized weakness and debility: Most likely affected by his current medical condition including his heart failure, recent OR with angioplasty, severe PAD, amputated 3 toes in such, patient will require little bit more help will add physical therapy and Occupational Therapy and prepare probably for SNF services for few weeks. 7 Type 2 diabetes: Has been on Farxiga 5 mg a day. Still on Toujeo 26 units daily with short-acting insulin as well. Continue Accu-Cheks sliding scale coverage. 8 hypothyroidism: Continue levothyroxine 150 mcg daily. 9 acute kidney injury with chronic kidney disease: Keep watching for any significant drop in blood pressure supportive care if needed not a lot worsening since last time. 10 severe PAD: Post 3 toes amputation and infected foot did not heal that well for a long time, has been doing slightly better continue current management.. 11 hypertension remain on losartan and metoprolol with blood pressure sometimes fluctuating down compared to before requiring midodrine. 12 hyperlipidemia: Remain on atorvastatin 80 mg daily. Objective - Vital Signs Vital signs: Vital Signs Temp 98.0 F 07/15/23 03:30 Pulse 74 07/15/23 03:30 Resp 17 07/15/23 03:30 BP 119/61 07/15/23 03:30 Pulse Ox 99 07/15/23 03:30 FiO2 Intake & Output 07/14/23 07/14/23 07/15/23 06:59 18:59 06:59 Weight 76.612 kg - Labs CBC & Chem 7: 07/15/23 08:22 07/15/23 08:22 Labs: Abnormal Lab Results - Last 24 Hours (Table) 07/14/23 07/14/23 07/14/23 Range/Units 13:02 13:02 13:02 RBC 3.48 L (4.30-5.90) m/uL Hgb 10.8 L (13.0-17.5) gm/dL Hct 34.0 L (39.0-53.0) % RDW 17.4 H (11.5-15.5) % BUN 23 H (9-20) mg/dL Creatinine 1.39 H (0.66-1.25) mg/dL Glucose 121 H (74-99) mg/dL Calcium 10.9 H (8.4-10.2) mg/dL Troponin I (0.000-0.034) ng/mL Total Protein 6.1 L (6.3-8.2) g/dL Albumin 3.0 L (3.5-5.0) g/dL Urine Glucose (UA) 2+ H (Negative) 07/14/23 Range/Units 13:02 RBC (4.30-5.90) m/uL Hgb (13.0-17.5) gm/dL Hct (39.0-53.0) % RDW (11.5-15.5) % BUN (9-20) mg/dL Creatinine (0.66-1.25) mg/dL Glucose (74-99) mg/dL Calcium (8.4-10.2) mg/dL Troponin I 0.040 H* (0.000-0.034) ng/mL Total Protein (6.3-8.2) g/dL Albumin (3.5-5.0) g/dL Urine Glucose (UA) (Negative)
[2023-07-16 05:50] LABS: Glucose,Whole Blood 83 mg/dL (70-110)
--- NOTE | 2023-07-16 06:10 | P.PN ---
Subjective Progress Note Date: 07/16/23 Chief Complaint: Acute systolic dysfunction congestive heart failure exacerbation, worsening 83-year-old male one of My office patient who has been seen for the last 3 years with known history of COPD, atrial fibrillation, chronic kidney disease, atherosclerotic heart disease, history of pulmonary embolism, anasarca and chronic edema, history of hypertension and hyperlipidemia who is also known to have chronic palpitation and arrhythmia with worsening cellulitis and nonhealing ulcer in the lower extremity along with previous history of UTI, patient was hospitalized recently on July 04. July 11, 2023 for elevated troponin with non-ST NC and atrial fibrillation with rapid ventricular response was stabilized and sent home on day 11 in stable condition during his hospitalization as last time found to have ejection fraction of 30 to 35% patient also is undergoing for heart catheter and ended up going for PCI and stent placement of the LAD successfully was placed on dual antiplatelet agent beside his Eliquis and remain on aspirin. Medication were adjusted he felt slightly bit better and ended up being discharged home. Please return to the emergency department today with significant dyspnea and shortness of breath he has fallen a few times since he left the hospital 3 days ago and become weak and worsening confusion at the time. Was seen and evaluated found to have still elevated troponin but proBNP of 11,700 UA was negative influenza AMB were negative slightly with worsening kidney function with creatinine 1.29 GFR at 47 also has mild anemia with hemoglobin of 10.8. Chest x-ray revealed cardiomegaly with mild edema and moderate bilateral pleural effusion much worsening than few days ago. CAT scan of the brain showed chronic changes with no acute intracranial process mostly small vessel disease. EKG shows atrial fibrillation with slow ventricular response. He was started on IV furosemide 40 mg IV every 8 hours despite diuresis well will be admitted to the hospital with the above problem. 07-15-2023: Patient was seen by cardiology today and apparently review testing from her his last admission agree this is acute on chronic systolic heart failure and to continue IV diuretics every 8 hours for now will adjust diuretics when patient is more subtle in the meanwhile his major problem is his debility not been able to ambulate and walk and has been much worsening since he had his gangrenous and amputated toes has been doing slightly bit worse with mobility has been in and out SNF at least twice last few weeks. Beside treating CHF will add PT OT and probably expect patient to require some help with nursing or rehab. 2-16-2024: He is doing much better seen and evaluated and evaluated by cardiology, patient congestive heart failure medication was adjusted, patient was seen by school social worker and evaluated by physical and Occupational Therapy. The plan is possible for school social worker to arrange for patient to go to [facility] to get his strength stabilized and will be more before going home. This is anticipated to happen as advanced today. REVIEW OF SYSTEMS: CONSTITUTIONAL: Elderly laying in bed in mild respiratory distress. EYES: No icterus sclerae, no conjunctivitis. EARS, NOSE, MOUTH, THROAT, and FACE: No sore throat, lymphadenopathy, carotid bruits or deformity. RESPIRATORY: Positive dyspnea shortness of breath cough wheezes. CARDIOVASCULAR: No chest pain or angina positive palpitation with PND and orthopnea. GASTROINTESTINAL: No Abd pain, Nausea or vomiting, no Diarrhea or constipation, No GI Bleed, no distention or masses. GENITOURINARY: No kidney stone or UTI at this point slight decrease in urine output. INTEGUMENT/BREAST: significant edema and anasarca. HEMATOLOGIC/LYMPHATIC: Negative for bleed or purpura. MUSCULOSKELTAL: Negative for Myalgia or arthralgia. NEURLOGICAL: No LOC, Sz or syncope, blurred vision dizziness or abnormality.. Severe debility with multiple falls. BEHAVIORAL/PSYCH: Negative. ENDOCRINE: Negative. Physical examination: General Appearance: Alert, cooperative, looks older than his age and has been having mild distress. Neck HEENT: Supple, no lymphadenopathy, no thyroid enlargement, no carotid bruits. Lungs: Decreased breath sound bilaterally especially the right side with fine rhonchi positive mild crackles in the bases positive expiratory wheezes. Chest Wall: Decreased expansion with deep inspiration no tenderness and no deformity was found on exam, no costochondral pain or discomfort. Heart: Irregular. Rate S1-S2 +3 positive systolic murmur with JVD. Back: Symmetric, no curvature, ROM normal, no CVA tenderness. Abdomen: Soft positive bowel sounds slight distention with no sign of ascites. Extremities: Extremities normal, atraumatic, no cyanosis, 1+ edema Pulses: 2+ and symmetric. Skin: Skin color, texture, tugor normal, no rashes or lesions. Neurologic: Alert oriented x3 cranial nerves II through XII intact, no motor deficit, no abnormal balance or gait. Assessment and plan: 1 acute systolic congestive heart failure exacerbation: Will change his medication to furosemide 40 mg orally twice a day combined with spironolactone 25 mg daily and will continue with secondary management for heart failure including his Jardiance along with losartan and keep using midodrine to keep his systolic blood pressure above 100 at this point. 2 recent history of NC with non-ST elevation: Postangioplasty and stent placement of the LAD continue secondary prevention being on dual antiplatelet agent. Also continue aspirin. Doing well no chest pain or angina mild elevated troponin that settled down the patient is not having any symptoms. 3 atrial fibrillation with rapid ventricular sponsor: Pulse rate is under control currently with pulse running in the 60s and 70s remain on metoprolol titrate 25 mg twice a day still on anticoagulation with Eliquis. 4 bilateral pleural effusion: Most likely secondary to CHF will be treated with diuretics no need for thoracentesis. 5 COPD: Continue DuoNeb nebulizer along with oxygen still on budesonide 0.5 mg twice a day. And still on oxygen. 6 severe generalized weakness and debility: Most likely affected by his current medical condition including his heart failure, recent NC with angioplasty, severe PAD, amputated 3 toes in such, patient will require little bit more help will add physical therapy and Occupational Therapy and prepare probably for SNF services for few weeks. 7 Type 2 diabetes: Has been on Farxiga 5 mg a day. Still on Toujeo 26 units daily with short-acting insulin as well. Continue Accu-Cheks sliding scale coverage. 8 hypothyroidism: Continue levothyroxine 150 mcg daily. 9 acute kidney injury with chronic kidney disease: Keep watching for any significant drop in blood pressure supportive care if needed not a lot worsening since last time. 10 severe PAD: Post 3 toes amputation and infected foot did not heal that well for a long time, has been doing slightly better continue current management.. 11 hypertension remain on losartan and metoprolol with blood pressure sometimes fluctuating down compared to before requiring midodrine. 12 hyperlipidemia: Remain on atorvastatin 80 mg daily. Hospital course: Has been doing very well continue PT OT with the help of physical therapy hopefully patient be able to go to nursing or rehab as able as today. Objective - Vital Signs Vital signs: Vital Signs Temp 97.6 F 07/16/23 01:24 Pulse 59 L 07/16/23 01:24 Resp 18 07/16/23 01:24 BP 109/47 07/16/23 01:24 Pulse Ox 97 07/16/23 01:24 FiO2 Intake & Output 07/15/23 07/15/23 07/16/23 06:59 18:59 06:59 Intake Total 480 Output Total 1600 800 Balance -1120 -800 Weight 68 kg Intake: Oral 480 Output: Urine 800 800 Post Void Residual 800 Other: Voiding Method Toilet Urinal # Voids 2 - Labs CBC & Chem 7: 07/15/23 08:22 07/15/23 08:22 Labs: Abnormal Lab Results - Last 24 Hours (Table) 07/15/23 07/15/23 07/15/23 Range/Units 08:22 08:22 20:24 RBC 3.32 L (4.30-5.90) m/uL Hgb 10.4 L (13.0-17.5) gm/dL Hct 32.4 L (39.0-53.0) % RDW 17.3 H (11.5-15.5) % BUN 23 H (9-20) mg/dL Creatinine 1.37 H (0.66-1.25) mg/dL POC Glucose (mg/dL) 141 H (70-110) mg/dL Calcium 10.5 H (8.4-10.2) mg/dL Total Protein 5.8 L (6.3-8.2) g/dL Albumin 2.8 L (3.5-5.0) g/dL
--- NOTE | 2023-07-16 06:30 | P.DS ---
Providers Date of admission: 07/14/23 14:34 Attending physician: Ronnie Sharma Consults: 07/14/23 14:32 Consult Physician Routine Consulting Provider: Rajat Maria Consult Reason/Comments: chf Do you want consulting provider notified?: Yes 07/14/23 16:17 Consult Physician Routine Consulting Provider: Rainer Pat Consult Reason/Comments: CHF Do you want consulting provider notified?: Yes Primary care physician: [facility] Hospital Course: Chief Complaint: Acute systolic dysfunction congestive heart failure exacerbation, worsening 83-year-old male one of My office patient who has been seen for the last 3 years with known history of COPD, atrial fibrillation, chronic kidney disease, atherosclerotic heart disease, history of pulmonary embolism, anasarca and chr onic edema, history of hypertension and hyperlipidemia who is also known to have chronic palpitation and arrhythmia with worsening cellulitis and nonhealing ulcer in the lower extremity along with previous history of UTI, patient was hospitalized recently on July 04. July 11, 2023 for elevated troponin with non-ST IL and atrial fibrillation with rapid ventricular response was sta bilized and sent home on day 11 in stable condition during his hospitalization as last time found to have ejection fraction of 30 to 35% patient also is undergoing for heart catheter and ended up going for PCI and stent placement of the LAD successfully was placed on dual antiplatelet agent beside his Eliquis and remain on aspirin. Medication were adjusted he felt slightly bit better and ended up being discharged home. Please return to the emergency department today with significant dyspnea and shortness of breath he has fallen a few times since he left the hospital 3 days ago and become weak and worsening confusion at the time. Was seen and evaluated found to have still elevated troponin but proBNP of 11,700 UA was negative influenza AMB were negative slightly with worsening kidney function with creatinine 1.29 GFR at 47 also has mild anemia with hemoglobin of 10.8. Chest x-ray revealed cardiomegaly with mild edema and moderate bilateral pleural effusion much worsening than few days ago. CAT scan of the brain showed chronic changes with no acute intracranial process mostly small vessel disease. EKG shows atrial fibrillation with slow ventricular response. He was started on IV furosemide 40 mg IV every 8 hours despite diuresis well will be admitted to the hospital with the above problem. 07-15-2023: Patient was seen by cardiology today and apparently review testing from her his last admission agree this is acute on chronic systolic heart failure and to continue IV diuretics every 8 hours for now will adjust diuretics when patient is more subtle in the meanwhile his major problem is his debility not been able to ambulate and walk and has been much worsening since he had his gangrenous and amputated toes has been doing slightly bit worse with mobility ford s been in and out SNF at least twice last few weeks. Beside treating CHF will add PT OT and probably expect patient to require some help with nursing or rehab. 07-16-2023: He is doing much better seen and evaluated and evaluated by cardiology, patient congestive heart failure medication was adjusted, patient was seen by high school social science teacher and evaluated by physical and Occupational Therapy. The plan is possible for high school social science teacher to arrange for patient to go to detention rehab to get his strength stabilized and will be more before going home. This is anticipated to happen as advanced today. REVIEW OF SYSTEMS: CONSTITUTIONAL: Elderly laying in bed in mild respiratory distress. EYES: No icterus sclerae, no conjunctivitis. EARS, NOSE, MOUTH, THROAT, and FACE: No sore throat, lymphadenopathy, carotid bruits or deformity. RESPIRATORY: Positive dyspnea shortness of breath cough wheezes. CARDIOVASCULAR: No chest pain or angina positive palpitation with PND and orthopnea. GASTROINTESTINAL: No Abd pain, Nausea or vomiting, no Diarrhea or constipation, No GI Bleed, no distention or masses. GENITOURINARY: No kidney stone or UTI at this point slight decrease in urine o utput. INTEGUMENT/BREAST: significant edema and anasarca. HEMATOLOGIC/LYMPHATIC: Negative for bleed or purpura. MUSCULOSKELTAL: Negative for Myalgia or arthralgia. NEURLOGICAL: No LOC, Sz or syncope, blurred vision dizziness or abnormality.. Severe debility with multiple falls. BEHAVIORAL/PSYCH: Negative. ENDOCRINE: Negative. Physical examination: General Appearance: Alert, cooperative, looks older than his age and has been having mild distress. Neck HEENT: Supple, no lymphadenopathy, no thyroid enlargement, no carotid bruits. Lungs: Decreased breath sound bilaterally especially the right side with fine rhonchi positive mild crackles in the bases positive expiratory wheezes. Chest Wall: Decreased expansion with deep inspiration no tenderness and no deformity was found on exam, no costochondral pain or discomfort. Heart: Irregular. Rate S1-S2 +3 positive systolic murmur with JVD. Back: Symmetric, no curvature, ROM normal, no CVA tenderness. Abdomen: Soft positive bowel sounds slight distention with no sign of ascites. Extremities: Extremities normal, atraumatic, no cyanosis, 1+ edema Pulses: 2+ and symmetric. Skin: Skin color, texture, tugor normal, no rashes or lesions. Neurologic: Alert oriented x3 cranial nerves II through XII intact, no motor deficit, no abnormal balance or gait. Assessment and plan: 1 acute systolic congestive heart failure exacerbation: Will change his medication to furosemide 40 mg orally twice a day combined with spironolactone 25 mg daily and will continue with secondary management for heart failure including his Jardiance along with losartan and keep using midodrine to keep his systolic blood pressure above 100 at this point. 2 recent history of IL with non-ST elevation: Postangioplasty and stent placement of the LAD continue secondary prevention being on dual antiplatelet agent. Also continue aspirin. Doing well no chest pain or angina mild elevated troponin that settled down the patient is not having any symptoms. 3 atrial fibrillation with rapid ventricular sponsor: Pulse rate is under control currently with pulse running in the 60s and 70s remain on metoprolol titrate 25 mg twice a day still on anticoagulation with Eliquis. 4 bilateral pleural effusion: Most likely secondary to CHF will be treated with diuretics no need for thoracentesis. 5 COPD: Continue DuoNeb nebulizer along with oxygen still on budesonide 0.5 mg twice a day. And still on oxygen. 6 severe generalized weakness and debility: Most likely affected by his current medical condition including his heart failure, recent IL with angioplasty, severe PAD, amputated 3 toes in such, patient will require little bit more help will add physical therapy and Occupational Therapy and prepare probably for SNF services for few weeks. 7 Type 2 diabetes: Has been on Farxiga 5 mg a day. Still on Toujeo 26 units daily with short-acting insulin as well. Continue Accu-Cheks sliding scale coverage. 8 hypothyroidism: Continue levothyroxine 150 mcg daily. 9 acute kidney injury with chronic kidney disease: Keep watching for any significant drop in blood pressure supportive care if needed not a lot worsening since last time. 10 severe PAD: Post 3 toes amputation and infected foot did not heal that well for a long time, has been doing slightly better continue current management.. 11 hypertension remain on losartan and metoprolol with blood pressure sometimes fluctuating down compared to before requiring midodrine. 12 hyperlipidemia: Remain on atorvastatin 80 mg daily. Hospital course: Patient was hospitalized for congestive heart failure exacerbation was treated with IV diuretics, seen cardiology medications were adjusted. Patient had severe debility since his last procedure has not been doing well PT OT had seen patient and work with him and he would benefit from short course of rehab. Sadly patient was not qualified for detention rehab and making arrangement with high school social science teacher to have home PT and home care. Also with adjustment of his diuretics at this point hopefully will be ordered. The patient to be seen in the office sometimes early next week to make sure his weight log and echo are with fluid retention the combination of his spironolactone 25 mg a day along with Lasix 40 mg twice a day hopefully will keep the weight stable and anasarca and edema in the well-controlled. If agreed by the feel he will be safe will be discharged home today. Time spent of helping to discharge patient today was over 35 minutes. Plan - Discharge Summary Discharge Rx Participant: No New Discharge Prescriptions: New Spironolactone 12.5 mg PO DAILY #30 tablet Continue Multivitamins, Thera [Multivitamin (formulary)] 1 tab PO DAILY Potassium Chloride [Klor-Con M20] 20 meq PO DAILY Pantoprazole [Protonix] 40 mg PO DAILY Montelukast [Singulair] 10 mg PO HS Metoprolol Tartrate [Lopressor] 25 mg PO BID Tamsulosin HCl [Flomax] 0.4 mg PO DAILY Folic Acid 1 mg PO DAILY Cyclobenzaprine [Flexeril] 5 mg PO BID PRN PRN Reason: Muscle Spasm Clopidogrel [Plavix] 75 mg PO DAILY calcitrioL [Rocaltrol] 0.5 mcg PO DAILY Budesonide [Pulmicort] 0.5 mg INHALATION RT-BID Atorvastatin [Lipitor] 80 mg PO DAILY Nitroglycerin Sl Tabs [Nitrostat] 0.4 mg SUBLINGUAL Q5M PRN #100 tab PRN Reason: Chest Pain Aspirin 81 mg PO DIRECTED Albuterol Inhaler [Ventolin Hfa Inhaler] 2 puff INHALATION RT-QID PRN PRN Reason: Shortness Of Breath Levothyroxine Sodium [Synthroid] 150 mcg PO DAILY Insulin Glargine,Hum.rec.anlog [Toujeo Max Solostar] 26 units SQ DAILY Ipratropium-Albuterol Nebulize [Duoneb 0.5 mg-3 mg/3 ml Soln] 3 ml INHALATION RT-QID Escitalopram [Lexapro] 20 mg PO DAILY Apixaban [Eliquis] 2.5 mg PO BID Empagliflozin [Jardiance] 10 mg PO DAILY Losartan [Cozaar] 25 mg PO DIRECTED Midodrine HCl [ProAmatine] 10 mg PO TID Changed Furosemide [Lasix] 40 mg PO BID #0 Discontinued Linagliptin [Tradjenta] 5 mg PO DAILY Torsemide [Demadex] 20 mg PO DAILY Discharge Medication List Apixaban [Eliquis] 2.5 mg PO BID 07/05/23 [History] Atorvastatin [Lipitor] 80 mg PO DAILY 07/05/23 [History] Budesonide [Pulmicort] 0.5 mg INHALATION RT-BID 07/05/23 [History] Clopidogrel [Plavix] 75 mg PO DAILY 07/05/23 [History] Cyclobenzaprine [Flexeril] 5 mg PO BID PRN 07/05/23 [History] Empagliflozin [Jardiance] 10 mg PO DAILY 07/05/23 [History] Escitalopram [Lexapro] 20 mg PO DAILY 07/05/23 [History] Folic Acid 1 mg PO DAILY 07/05/23 [History] Insulin Glargine,Hum.rec.anlog [Toujeo Max Solostar] 26 units SQ DAILY 07/05/23 [History] Ipratropium-Albuterol Nebulize [Duoneb 0.5 mg-3 mg/3 ml Soln] 3 ml INHALATION RT-QID 07/05/23 [History] Levothyroxine Sodium [Synthroid] 150 mcg PO DAILY 07/05/23 [History] Metoprolol Tartrate [Lopressor] 25 mg PO BID 07/05/23 [History] Montelukast [Singulair] 10 mg PO HS 07/05/23 [History] Multivitamins, Thera [Multivitamin (formulary)] 1 tab PO DAILY 07/05/23 [History] Pantoprazole [Protonix] 40 mg PO DAILY 07/05/23 [History] Potassium Chloride [Klor-Con M20] 20 meq PO DAILY 07/05/23 [History] Tamsulosin HCl [Flomax] 0.4 mg PO DAILY 07/05/23 [History] calcitrioL [Rocaltrol] 0.5 mcg PO DAILY 07/05/23 [History] Nitroglycerin Sl Tabs [Nitrostat] 0.4 mg SUBLINGUAL Q5M PRN #100 tab 07/09/23 [Rx] Albuterol Inhaler [Ventolin Hfa Inhaler] 2 puff INHALATION RT-QID PRN 07/14/23 [History] Aspirin 81 mg PO DIRECTED 07/14/23 [History] Losartan [Cozaar] 25 mg PO DIRECTED 07/14/23 [History] Midodrine HCl [ProAmatine] 10 mg PO TID 07/14/23 [History] Furosemide [Lasix] 40 mg PO BID #0 07/16/23 [Rx] Spironolactone 12.5 mg PO DAILY #30 tablet 07/16/23 [Rx] Follow up Appointment(s)/Referral(s): Jamin Reich MD [STAFF PHYSICIAN] - 1 Week (Patient will need to call the office to set up appointment. ) Ronnie Sharma MD [Primary Care Provider] - 1 Week ([facility]et will need to call office to set up appointment. ) [facility] Visiting Nurse, [NON-STAFF] - Patient Instructions/Handouts: Heart Failure (DC) Discharge/Stand Alone Forms: Who Do I Call?, Adult Foster Long Term List, Assisted Living Facilities, Community Resources, Help In The Home Discharge Disposition: TRANSFER TO SNF/ECF
[2023-07-16 07:38] VITALS: BP 112/70; RESP 17; TEMP 97.3
[2023-07-16 11:07] LABS: HCT 31.7 % (39.6-50.0); HGB 10.1 g/dL (13.0-17.0); MCH 30.7 pg (27.0-32.0); MCHC 31.9 g/dL (32.0-37.0); MCV 96.4 FL (80.0-97.0); Mean Platelet Volume 9.8 FL (9.5-12.2); NRBC Per 100 WBC 0 X 10*3/uL (0.00-0.01); Platelet Count 201 X 10*3/uL (140-440); RBC 3.29 X 10*6/uL (4.40-5.60); RDW 17.4 % (11.5-14.5); WBC 8.65 X 10*3/uL (4.50-10.00)
--- NOTE | 2023-07-16 11:22 | P.PN ---
Subjective HISTORY OF PRESENT ILLNESS: This is an 83-year-old male patient of Dr. Rhonda Pat with past medical history of coronary artery disease status post prior angioplasty, cardiomyopathy, severe pulmonary hypertension, dyslipidemia, permanent atrial fibrillation on Eliquis, peripheral artery disease status post amputation of toes on the right foot. We have been asked to evaluate the patient for CHF. Patient was recently hospitalized July 04 through July 11 at which time he was seen by cardiology for type II RI, acute on chronic systolic heart failure. Patient states that he had a nurse coming to his home but did not like the way he looke d. Patient has significant weakness and difficulty breathing and falls. Patient denies having any chest pain. No palpitations. Patient is seen today in the emergency center waiting for a bed on the cardiac stepdown unit. EKG atrial fibrillation with ventricular rate of 59 bpm. Chest x-ray: Cardiomegaly with mild edema and moderate bilateral pleural effusions. CAT scan of the brain reveals chronic changes with no acute intracranial process. WBC 8.2, hemoglobin 10.4, platelet count 209. Electrolytes within normal limits. BUN 23 creatinine 1.39. Blood sugar 121, magnesium 1.7. Troponin 0 .04. proBNP 11,700. TSH 0.483. Urinalysis negative for infection. Influenza A, influenza B, COVID-19, RSV not detected. Home cardiac medications: Eliquis 2.5 mg twice daily, atorvastatin 80 mg daily, Plavix 75 mg daily, Lasix 40 mg daily, metoprolol tartrate 25 mg twice daily, midodrine 10 mg 3 times daily, Nitrostat as needed, potassium chloride 20 mill colons daily, torsemide 20 mg daily, patient also prescribed aspirin 81 mg daily, losartan 25 mg daily as of 07/14. Patient is also on levothyroxine 150 mcg daily. Cardiac catheterization 07/[address] Rhonda Pat revealed left main was patent although difficult to selectively engage the left main because of ostial stent. No significant disease in the left system. Minor diffuse irregularities were noted. RCA proximally had a 70 to 80% eccentric lesion best seen in the cranial projection. Subsequently patient underwent PTCA and stenting of the mid left anterior descending and ostium of the left main with Dr. ROXANE Mondragon. Echocardiogram performed on 07/05/2023 revealed severely impaired left ventricular systolic function with segmental wall motion abnormality, EF 30 to 35%, moderate mitral, aortic, tricuspid regurgitation. Mild pulmonary hypertension. 07/16/2023 Patient examined this morning at the bedside. Patient currently denies any chest pain or pressure. He denies any shortness of breath. He is receiving IV Lasix and has been diuresing well. He states he is feeling significantly improved today and is hoping to be discharged. Vital signs are stable. PHYSICAL EXAM: VITAL SIGNS: Reviewed. GENERAL: Well-developed in no acute distress. NECK: Supple. No JVD or thyromegaly LUNGS: Respirations even and unlabored. Lungs essentially clear to auscultation bilaterally. HEART: Irregular rate and rhythm. S1 and S2 heard. Systolic murmur noted at the base and apex EXTREMITIES: Normal range of motion. No clubbing or cyanosis. Peripheral pulses intact. 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 Pat Nurse practitioner note has been reviewed by physician. Signing provider agrees with the documented findings, assessment, and plan of care documented by [employer] as a scribe. Objective - Vital Signs Vital signs: Vital Signs Temp 97.3 F L 07/16/23 07:23 Pulse 82 07/16/23 07:23 Resp 17 07/16/23 07:23 BP 112/70 07/16/23 07:23 Pulse Ox 97 07/16/23 01:24 FiO2 Intake & Output 07/15/23 07/16/23 07/16/23 18:59 06:59 18:59 Intake Total 480 Output Total 1600 800 Balance -1120 -800 Weight 68 kg 68 kg Intake: Oral 480 Output: Urine 800 800 Post Void Residual 800 Other: Voiding Method Toilet Urinal # Voids 2 - Labs CBC & Chem 7: 07/16/23 07:07 07/15/23 08:22 Labs: Abnormal Lab Results - Last 24 Hours (Table) 07/15/23 07/16/23 Range/Units 20:24 07:07 RBC 3.29 L (4.40-5.60) X 10*6/uL Hgb 10.1 L (13.0-17.0) g/dL Hct 31.7 L (39.6-50.0) % MCHC 31.9 L (32.0-37.0) g/dL RDW 17.4 H (11.5-14.5) % POC Glucose (mg/dL) 141 H (70-110) mg/dL
[2023-07-16 11:27] LABS: ALT 16 U/L (10-49); AST 23 U/L (14-35); Albumin 3.1 g/dL (3.8-4.9); Albumin/Globulin Ratio 1.24 Ratio (1.60-3.17); Alkaline Phosphatase 77 U/L (41-126); BUN/Creat Ratio 13.29 Ratio (12.00-20.00); Blood Urea Nitrogen 22.6 mg/dL (9.0-27.0); Calcium 10.6 mg/dL (8.7-10.3); Carbon Dioxide 28.9 mmol/L (21.6-31.8); Chloride 99 mmol/L (96-109); Globulin 2.5 g/dL (1.6-3.3); Glucose 67 mg/dL (70-110); Potassium 3.7 mmol/L (3.5-5.5); Sodium 138 mmol/L (135-145); Total Bilirubin 0.4 mg/dL (0.3-1.2); Total Protein 5.6 g/dL (6.2-8.2)
[2023-07-16 11:29] VITALS: BMI 23.4
[2023-07-16 12:31] VITALS: PULSE 68
== END 2023-07-16 13:44 ==
LOC: EC 12:50 → 4SSUR 14:34 → 3SCARD 15:15 → 4SSUR 07-15 10:24
PROVIDERS: ADMIT Internal Medicine Geriatric Medicine; ATTEND Internal Medicine Geriatric Medicine
DX: I13.0 Hypertensive heart and chronic kidney disease with heart failure and stage 1 through stage 4 chronic kidney disease, or unspecified chronic kidney disease (principal); I50.23 Acute on chronic systolic (congestive) heart failure; N17.9 Acute kidney failure, unspecified; N18.9 Chronic kidney disease, unspecified; I21.A1 Myocardial infarction type 2; I48.21 Permanent atrial fibrillation; E11.22 Type 2 diabetes mellitus with diabetic chronic kidney disease; E11.51 Type 2 diabetes mellitus with diabetic peripheral angiopathy without gangrene; I27.20 Pulmonary hypertension, unspecified; I25.5 Ischemic cardiomyopathy; I08.3 Combined rheumatic disorders of mitral, aortic and tricuspid valves; I25.10 Atherosclerotic heart disease of native coronary artery without angina pectoris; J44.9 Chronic obstructive pulmonary disease, unspecified; E03.9 Hypothyroidism, unspecified; E78.5 Hyperlipidemia, unspecified; N40.0 Benign prostatic hyperplasia without lower urinary tract symptoms; D64.9 Anemia, unspecified; Z11.52 Encounter for screening for COVID-19; Z11.59 Encounter for screening for other viral diseases; Z79.01 Long term (current) use of anticoagulants; Z79.02 Long term (current) use of antithrombotics/antiplatelets; Z79.84 Long term (current) use of oral hypoglycemic drugs; Z79.890 Hormone replacement therapy; Z79.51 Long term (current) use of inhaled steroids; Z79.82 Long term (current) use of aspirin; Z79.4 Long term (current) use of insulin; Z79.899 Other long term (current) drug therapy; Z88.8 Allergy status to other drugs, medicaments and biological substances; Z87.891 Personal history of nicotine dependence; Z95.5 Presence of coronary angioplasty implant and graft; Z86.711 Personal history of pulmonary embolism; Z87.440 Personal history of urinary (tract) infections; Z89.421 Acquired absence of other right toe(s)
CPT/HCPCS: 96376 ×3; 96374; 99285; 51798; 36415; 94640 ×3; 94760; 93005; 97161; 97166; 83880; 80053 ×3; 83605; 83735; 84443; 84484; 85025; 85027 ×2; 85610; 85730; 81003; 87636; 71046; 70450; G0378 ×4; J1940 ×3